=== PATIENT | male | born 1935 | race Caucasian/White ===

== ENCOUNTER → 2020-12-22 15:31 | Outpatient (CLI) | payer MEDICARE, SELFPAY ==
[2020-12-22 17:44] LABS: Absolute Neutrophil Count 4.7 X10^3/uL (2.0-7.7); Basophil# 0.07 X10^3/uL; Eosinophil# 0.18 X10^3/uL; Eosinophils% 2.6 % (0-5); Hematocrit 34.5 % (40-54); Hemoglobin 11.4 g/dL (13.0-16.5); Lymphocyte % 17.2 % (19-41); Mean Corpuscular Hgb 33.5 pg (27.0-32.0); Mean Corpuscular Volume 101.5 fL (80-94); Mean Platelet Vol. 10.6 fl (6.2-12.0); Monocyte# 0.77 X10^3/uL; NRBC Flagged by Analyzer 0 % (0-5); Neutrophil # 4.72 X10^3/uL (2.7-7.7); Neutrophil % 67.8 % (47-70); Platelet Count 239 K/mm3 (150-450); RBC Distribution Width CV 16.2 % (11.6-14.6)
[2020-12-22 17:59] LABS: Vitamin B12 360 pg/mL (211-911)
[2020-12-22 18:00] LABS: Erythrocyte Sedimentation Rate 16 mm/hr (0-20)
[2020-12-22 18:04] LABS: ALB/GLOB Ratio 0.8 RATIO (0.9-2.4); AST(SGOT) 15 U/L (15-37); Alanine Aminotransfer ALT/SGPT 18 U/L (16-61); Albumin, Serum 3.1 g/dL (3.2-5.0); Alkaline Phosphatase 158 U/L (45-117); Anion Gap 8 (5-15); BUN 22 mg/dL (7-18); BUN/Creat Ratio 20.4 RATIO (10-20); Chloride 103 mmol/L (98-107); Creatinine, Serum 1.08 mg/dL (0.70-1.30); EST Glomerular Filtration Rate 69 mL/min (>60); Est Glom Filt Rate - Afr Amer 83 mL/min (>60); Globulin 4.1 g/dL (2.2-4.2); Glucose 102 mg/dL (74-106); Potassium 4.4 mmol/L (3.5-5.1); Prealbumin 18.3 mg/dL (20.0-40.0); Protein, Total 7.2 g/dL (6.4-8.2); Sodium Level 138 mmol/L (136-145); Thyroid Stim Hormone (TSH) 0.08 uIU/mL (0.358-3.74)
== END ==
PROVIDERS: Visit Provider Family Medicine
DX: R41.3 Other amnesia (principal); R63.4 Abnormal weight loss
CPT/HCPCS: 36415; 80053; 82607; 84134; 84443; 85025; 85652

== ENCOUNTER → 2021-07-16 | Outpatient (CLI) | payer MEDICARE, SELFPAY ==
[2021-07-16 13:36] LABS: Absolute Neutrophil Count 4.3 X10^3/uL (2.0-7.7); Basophil# 0.06 X10^3/uL; Basophil% 0.9 % (0-1); Eosinophil# 0.27 X10^3/uL; Eosinophils% 4.1 % (0-5); Hematocrit 33.5 % (40-54); Lymphocyte % 19.7 % (19-41); Mean Corp Hgb Conc 32.8 g/dL (32-36); Mean Corpuscular Hgb 34.9 pg (27.0-32.0); Mean Corpuscular Volume 106.3 fL (80-94); Mean Platelet Vol. 10.5 fl (6.2-12.0); Monocyte# 0.65 X10^3/uL; Monocyte% 9.8 % (0-10); NRBC Flagged by Analyzer 0 % (0-5); Neutrophil % 65.2 % (47-70); Platelet Count 193 K/mm3 (150-450); RBC Distribution Width CV 15.5 % (11.6-14.6); Red Blood Count 3.15 M/mm3 (4.6-6.2); White Blood Count 6.6 K/mm3 (4.4-11.0)
[2021-07-16 14:10] LABS: AST(SGOT) 18 U/L (15-37); Alanine Aminotransfer ALT/SGPT 19 U/L (16-61); Albumin, Serum 3.3 g/dL (3.2-5.0); Alkaline Phosphatase 214 U/L (45-117); Anion Gap 5 (5-15); BUN 23 mg/dL (7-18); BUN/Creat Ratio 19.7 RATIO (10-20); Bilirubin, Direct 0.39 mg/dL (0.00-0.30); Calcium,Total 9.1 mg/dL (8.5-10.1); Chloride 109 mmol/L (98-107); Cholesterol 69 mg/dL (200); Creatinine, Serum 1.17 mg/dL (0.70-1.30); EST Glomerular Filtration Rate 63 mL/min (>60); Est Glom Filt Rate - Afr Amer 76 mL/min (>60); Globulin 3.9 g/dL (2.2-4.2); Glucose 98 mg/dL (74-106); High Density Lipoprotein 15 mg/dL; Magnesium 2.1 mg/dL (1.6-2.6); Potassium 4.4 mmol/L (3.5-5.1); Protein, Total 7.2 g/dL (6.4-8.2); Sodium Level 143 mmol/L (136-145); Thyroid Stim Hormone (TSH) 1.39 uIU/mL (0.358-3.74); Triglycerides 79 mg/dL; Very Low Density Lipoprotein 16 mg/dL (5-40)
== END | disposition home or self-care (01) ==
LOC: LAB 13:07
PROVIDERS: PCP Family Medicine; Referring Provider Internal Medicine Cardiovascular Disease; Visit Provider Internal Medicine Cardiovascular Disease
DX: R06.02 Shortness of breath (principal); I48.92 Unspecified atrial flutter; Z95.5 Presence of coronary angioplasty implant and graft; I25.10 Atherosclerotic heart disease of native coronary artery without angina pectoris; E78.00 Pure hypercholesterolemia, unspecified; I10 Essential (primary) hypertension; E07.9 Disorder of thyroid, unspecified
CPT/HCPCS: 36415; 80048; 80061; 80076; 83735; 84443; 85025

== ENCOUNTER → 2021-08-03 | Outpatient (CLI) | payer MEDICARE, SELFPAY ==
--- NOTE | 2021-08-03 13:10 | STRESSREP ---
Stress Test Report Date: 08-03-2021 Procedure: Pharmacologic stress nuclear imaging study Indications: Atrial flutter; CAD; PCI Consent: Per the patient Procedure: The patient underwent pharmacologic (Regadenoson 0.4mg ) evaluation with a peak heart rate of 60 beats per minute (45%predicted maximal heart rate) and a peak blood pressure of 116/74 mmHg. The baseline ECG demonstrated atrial flutter; poor R wave progression. The peak pharmacologic ECG demonstrated no obvious ECG changes. There were no cardiac dysrhythmias pretest, during pharmacologic infusion, or recovery. There was no complaint of chest discomfort during pharmacologic infusion or recovery. The examination was discontinued secondary to completion of protocol. Impression: 1. Pharmacologic (Regadenoson) evaluation 2. Peak pharmacologic ECG with continued atrial flutter with poor R wave progression with no obvious ECG changes. 3. There were no cardiac dysrhythmias pretest, during pharmacologic infusion, or recovery. 4. Nuclear images pending Myocardial perfusion imaging study: Technique: The patient was injected with 14.1 millicuries of technetium 99m Cardiolite and subsequently rest SPECT Cardiolite nuclear imaging was obtained in the horizontal long, vertical long, and short axis views. The patient underwent pharmacologic (Regadenoson) evaluation with a peak heart rate of 60 beats per minute (45% percent predicted maximal heart rate) and a peak blood pressure of 116/74 mmHg. The patient was injected with 44.3 millicuries of technetium 99m Cardiolite and subsequently stress SPECT Cardiolite nuclear imaging was obtained in the horizontal long, vertical long, and short axis views. A gated Cardiolite study at peak stress was obtained. Interpretation: Rest and stress SPECT Cardiolite nuclear imaging status post realignment, normalization, and attenuation correction demonstrate relative uniform tracer uptake and myocardial perfusion appearing within normal limits. There is end systolic thickening and brightening. The gated Cardiolite study demonstrates myocardial thickening and inward wall motion. The reported LVEF is 78%. Impression: 1. Rest and stress SPECT Cardiolite nuclear imaging demonstrate relative uniform tracer uptake and myocardial perfusion appearing within normal limits. 2. The gated Cardiolite study reports an LVEF of 78%. This note was generated with [employer] software. It may contain incorrect words, spelling, and punctuation that were not noted in checking the note before signing.
== END | disposition home or self-care (01) ==
PROVIDERS: PCP Family Medicine; Referring Provider Internal Medicine Cardiovascular Disease; Visit Provider Internal Medicine Cardiovascular Disease
DX: I48.92 Unspecified atrial flutter (principal); Z95.5 Presence of coronary angioplasty implant and graft; I25.10 Atherosclerotic heart disease of native coronary artery without angina pectoris; E78.00 Pure hypercholesterolemia, unspecified; I10 Essential (primary) hypertension; R06.02 Shortness of breath
CPT/HCPCS: 78452; 93017; A9500; A4216; J2785

== ENCOUNTER → 2021-08-06 | Outpatient (CLI) | payer MEDICARE, SELFPAY ==
--- NOTE | 2021-08-06 14:48 | ECHOD_ITS ---
Reason For Study: ATRIAL FIB-FLUTTER Procedure This was a 2D Doppler, Color Flow transthoracic echocardiogram. The exam was of adequate technical quality. Exam performed in department. Left Ventricle Normal LV size. Left ventricular systolic function is normal. The estimated ejection fraction is 65 %. Unable to assess diastolic dysfunction. No regional wall motion abnormalities noted. Right Ventricle Normal RV size. Normal systolic function. Atria The left atrium is mildly enlarged. The right atrium is mildly enlarged. No doppler evidence for ASD. Mitral Valve There is no mitral annular calcification. Mild focal mitral valve calcification of the anterior leaflet. Mild-Moderate (1-2+) mitral valve insufficiency. Tricuspid Valve Normal tricuspid valve. Mild to moderate (1-2+) tricuspid valve insufficiency. Right ventricular systolic pressure estimated to be 62 mmHg. Aortic Valve Trisinus/trileaflet aortic valve. Mild focal aortic valve thickening. Mild (1+) aortic valve insufficiency. Pulmonic Valve The pulmonic valve is not well visualized. Mild-Moderate (1-2+) pulmonic valve insufficiency. Great Vessels Normal sized aortic root. Pericardium/Pleural No pericardial effusion. MMode/2D Measurements & Calculations LVIDd: 5.1 cm IVSd: 1.0 cm Ao root diam: 3.2 cm LVIDs: 3.3 cm LVPWd: 0.96 cm RVDd: 3.8 cm FS: 35.8 % LAV(MOD-bp): 75.1 ml LVAd ap4: 28.4 cm2 SV(MOD-sp4): 49.7 ml LAV(MOD-bp) Indexed: 33.8 ml/m2 LVLd ap4: 8.2 cm LAV(MOD-sp2): 71.1 ml EDV(MOD-sp4): 79.8 ml LAV(MOD-sp4): 71.5 ml EDV(sp4-el): 83.2 ml LVAs ap4: 15.6 cm2 LVLs ap4: 6.9 cm ESV(MOD-sp4): 30.1 ml ESV(sp4-el): 29.6 ml EF(MOD-sp4): 62.3 % EF(sp4-el): 64.5 % SV(sp4-el): 53.6 ml LA A4 area: 25.5 cm2 LA dimension(2D): 4.6 cm RA A4 area: 23.4 cm2 Time Measurements MV dec time: 0.22 sec Doppler Measurements & Calculations MV E max swapna: 154.1 cm/sec Ao V2 max: 133.3 cm/sec AI max swapna: 448.3 cm/sec Ao max P.1 mmHg AI max P.4 mmHg AI dec slope: 244.1 cm/sec2 AI P1/2t: 538.0 msec LV V1 max: 94.9 cm/sec PA V2 max: 75.5 cm/sec PI dec slope: 257.2 cm/sec2 LV V1 max P.6 mmHg TR max swapna: 383.1 cm/sec TR max P.7 mmHg ECHO/Echo Complete Interpretation Summary Left ventricular systolic function is normal. The estimated ejection fraction is 65 %. The left atrium is mildly enlarged. The right atrium is mildly enlarged. Mild focal mitral valve calcification of the anterior leaflet. Mild-Moderate (1-2+) mitral valve insufficiency. Mild to moderate (1-2+) tricuspid valve insufficiency. Mild focal aortic valve thickening. Mild (1+) aortic valve insufficiency. Mild-Moderate (1-2+) pulmonic valve insufficiency. Right ventricular systolic pressure estimated to be 62 mmHg. Unable to assess diastolic dysfunction. Ordering Physician: Delfino Allison Referring Physician: FAIZA GALVIN Performed By: Mela Byrd RDCS
== END | disposition home or self-care (01) ==
PROVIDERS: PCP Family Medicine; Visit Provider Internal Medicine Cardiovascular Disease
DX: I25.10 Atherosclerotic heart disease of native coronary artery without angina pectoris (principal); I48.92 Unspecified atrial flutter; R06.02 Shortness of breath; E78.00 Pure hypercholesterolemia, unspecified; I10 Essential (primary) hypertension; Z95.5 Presence of coronary angioplasty implant and graft
CPT/HCPCS: 93306

== ENCOUNTER → 2021-10-28 | Outpatient (CLI) | payer MEDICARE, SELFPAY ==
[2021-10-28 18:51] LABS: Vitamin B12 1344 pg/mL (211-911)
== END | disposition home or self-care (01) ==
LOC: MFPLAB 15:16
PROVIDERS: PCP Family Medicine; Referring Provider Family Medicine; Visit Provider Family Medicine
DX: E53.8 Deficiency of other specified B group vitamins (principal)
CPT/HCPCS: 36415; 82607

== ENCOUNTER → 2021-11-16 | Outpatient (CLI) | payer MEDICARE, SELFPAY ==
[2021-11-16 17:48] LABS: Absolute Lymphocyte Count 1.39 X10^3/uL (0.83-4.51); Absolute Neutrophil Count 4.5 X10^3/uL (2.0-7.7); Basophil# 0.07 X10^3/uL; Basophil% 0.9 % (0-1); Eosinophil# 0.29 X10^3/uL; Eosinophils% 3.9 % (0-5); Hematocrit 27.6 % (40-54); Hemoglobin 8.9 g/dL (13.0-16.5); Lymphocyte # 1.39 X10^3/ul (0.83-4.51); Lymphocyte % 18.5 % (19-41); Mean Corp Hgb Conc 32.2 g/dL (32-36); Mean Corpuscular Hgb 33.6 pg (27.0-32.0); Mean Corpuscular Volume 104.2 fL (80-94); Mean Platelet Vol. 10.6 fl (6.2-12.0); Monocyte# 1.21 X10^3/uL; Monocyte% 16.1 % (0-10); NRBC Flagged by Analyzer 0 % (0-5); Neutrophil # 4.54 X10^3/uL (2.7-7.7); Neutrophil % 60.2 % (47-70); POSITIVE MORPHOLOGY YES; Platelet Count 156 K/mm3 (150-450); RBC Distribution Width CV 21.5 % (11.6-14.6); RBC Distribution Width SD 82.2 fl (35.1-43.9); Red Blood Count 2.65 M/mm3 (4.6-6.2); White Blood Count 7.5 K/mm3 (4.4-11.0)
[2021-11-16 17:55] LABS: Differential Indicated SCAN CRITERIA MET
[2021-11-16 18:04] LABS: Anion Gap 8 (5-15); BUN 42 mg/dL (7-18); BUN/Creat Ratio 27.8 RATIO (10-20); Calcium,Total 8.7 mg/dL (8.5-10.1); Chloride 105 mmol/L (98-107); Creatinine, Serum 1.51 mg/dL (0.70-1.30); EST Glomerular Filtration Rate 47 mL/min (>60); Est Glom Filt Rate - Afr Amer 56 mL/min (>60); Ferritin 518 ng/mL (26-388); Glucose 106 mg/dL (74-106); Iron 44 ug/dL (65-175); Potassium 4.7 mmol/L (3.5-5.1); Sodium Level 139 mmol/L (136-145)
[2021-11-16 18:20] LABS: BNP,B-Type NATRIURETIC PEPTIDE 123.4 pg/mL (0-100)
[2021-11-16 18:40] LABS: Differential Comment SCANNED
[2021-11-16 18:41] LABS: Hypochromasia 2+; Macrocytosis 3+; Target Cells 3+
[2021-11-16 18:42] LABS: Schistocytes RARE
[2021-11-16 19:43] LABS: Vitamin B12 1794 pg/mL (211-911)
== END | disposition home or self-care (01) ==
LOC: MFPLAB 15:13
PROVIDERS: PCP Family Medicine; Referring Provider Family Medicine; Visit Provider Family Medicine
DX: I25.10 Atherosclerotic heart disease of native coronary artery without angina pectoris (principal); D64.9 Anemia, unspecified
CPT/HCPCS: 36415; 80048; 82607; 82728; 83540; 83880; 85025; 85027

== ENCOUNTER 2021-12-09 18:34 | Inpatient (IN) | payer MEDICARE, SELFPAY ==
[2021-12-09 18:35] VITALS: BP 94/50; PULSE 76; RESP 16; TEMP 36.7; O2SAT 98; BMI 27.1
--- NOTE | 2021-12-09 19:55 | EKG12_ITS ---
Test Reason : GENERAL ILLNES Blood Pressure : / mmHG Vent. Rate : 077 BPM Atrial Rate : 231 BPM P-R Int : 000 ms QRS Dur : 080 ms QT Int : 500 ms P-R-T Axes : 000 -28 035 degrees QTc Int : 565 ms Atrial flutter with variable A-V block Low voltage QRS Nonspecific T wave abnormality Abnormal ECG Confirmed by JAYCE RUBIN, ANDREA ([id number]), makeup editor KISHAN KELLY ([id number]) on 12/14/2021 9:33:54 AM Referred By: Confirmed By:ANDREA EDUARDO MD
--- NOTE | 2021-12-09 19:56 | EDS_ITS ---
HPI History of Present Illness Chief Complaint: Abn Labs Detail of Chief Complaint: Weakness Informant: patient and spouse/S.O. Onset/Context/Timing Onset: Weeks Narrative Narrative: Patient presents with generalized weakness over the last 2 or 3 weeks. states he has been mildly in bed for the last for 5 days. He states he just has no energy to go do anything. He has had decreased appetite as well and therefore decreased p.o. intake. He denies fever or chills. He denies pain anywhere. Triage note states that he is here for low hemoglobin. His labs were last checked in October. At that time his hemoglobin was 8.9. He has not had repeat labs since then. [facility] Medical History Arthritis Atherosclerotic heart disease of [place] coronary artery without angina pectoris Atrial flutter Encounter for screening for COVID-19 Essential hypertension Heart disease Hypertension Presence of stent in coronary artery (~01/13/01) Pure hypercholesterolemia Rheumatic fever Shortness of breath URI (upper respiratory infection) Home Medications aspirin 81 mg tablet,delayed release (Adult Aspirin Regimen) 81 mg PO DAILY 01/23/21 [History Last Taken Unknown] atorvastatin 40 mg tablet 40 mg PO DAILY 01/23/21 [History Last Taken Unknown] clopidogrel 75 mg tablet 75 mg PO DAILY 01/23/21 [History Last Taken Unknown] levothyroxine 125 mcg tablet (Euthyrox) 125 mcg PO DAILY 01/23/21 [History Last Taken Unknown] lisinopril 40 mg tablet 40 mg PO DAILY 01/23/21 [History Last Taken Unknown] ascorbic acid (vitamin C) 500 mg tablet 500 mg PO DAILY 07/07/21 [History Last Taken Unknown] cholecalciferol (vitamin D3) 25 mcg (1,000 unit) tablet 25 mcg PO DAILY 07/07/21 [History Last Taken Unknown] multivitamin 1 tab PO DAILY 07/07/21 [History Last Taken Unknown] furosemide 40 mg tablet 20 mg PO DAILY 07/09/21 [History Last Taken Unknown] metoprolol tartrate 25 mg tablet 12.5 mg PO BID 07/09/21 [History Last Taken Unknown] omega 4-qny-blk-fish oil 60 mg-90 mg-500 mg capsule (Fish Oil) 1 cap PO DAILY 07/09/21 [History Last Taken Unknown] allopurinol 300 mg tablet 150 mg PO DAILY 08/20/21 [History Last Taken Unknown] lactobacillus combination no.4 3 billion cell capsule (Probiotic) 3,000 mmu ce lls PO DAILY 12/09/21 [History Last Taken Unknown] loratadine 10 mg tablet (Claritin) 10 mg PO DAILY 12/09/21 [History Last Taken Unknown] Allergy/AdvReac Type Severity Reaction Status Date / Time adhesive tape Allergy Mild RASH Verified 08/20/21 14:32 iodine Allergy Mild UNKNOWN Verified 08/20/21 14:32 Family History Father Myocardial infarction, Onset Age: 46 Surgical History History of carpal tunnel release History of cholecystectomy Presence of coronary angioplasty implant and graft (~01/13/01) Social History Smoking Status: Never smoker alcohol intake: never substance use type: does not use caffeine: Yes Type: coffee Number of servings: 1 ROS ROS ED Constitutional Constitutional ED: Denies chills or fever(s) Eyes Eyes: Denies change in vision or discharge from eye(s) ENT ENT ED: Denies discharge from eye(s), rhinorrhea or sore throat Cardiovascular Cardiovascular: Denies chest pain or palpitations Respiratory/Chest Respiratory/Chest: Denies cough or dyspnea Gastrointestinal Gastrointestinal: Denies abdominal pain, diarrhea, nausea or vomiting Genitourinary Genitourinary ED: Denies dysuria Musculoskeletal Musculoskeletal: Denies back pain or extremity pain Integumentary Denies Abrasions or rash Neurologic Neurologic: Reports weakness; Denies headache(s) Psychiatric Psychiatric: Denies anxiety or depression Allergic/Immunologic Allergic/Immunologic ED: Denies lip swelling or urticaria EXAM Physical Exam Const Vital Signs: 12/09/21 18:35 12/09/21 19:37 12/09/21 21:22 Temperature 98.0 F Temperature Source Temporal Pulse Rate 76 68 Respiratory Rate 16 33 H Respiratory Effort Normal Respiratory Pattern Normal Blood Pressure 94/50 L Blood Pressure Mean 64 Pulse Ox 98 96 Oxygen Delivery Method Room Air Room Air Positive well nourished and well developed General Appearance ED: well developed HEENT Reports normocephalic and head/scalp atraumatic Eyes PERRL and EOMs intact bilaterally Neck supple Chest Wall inspection of chest normal and palpation of chest normal Resp normal respiratory effort and clear to auscultation bilaterally Cardio regular rate and regular rhythm GI normal to inspection, nondistended, normoactive bowel sounds Palpation: soft Extremity normal to inspection Neuro oriented x3 and no sensory deficits noted Neuro Narrative: No focal neurologic deficits. Sensorium / Orientation: alert Psych mental status grossly normal Skin no rashes or lesions noted MDM MDM MDM Narrative Medical decision making narrative: Patient placed on cardiac catheterization technician. EKG, chest x-ray, lab work obtained. Urinalysis ordered. Lab Data Attestation: I reviewed the patient's lab results. Labs: Laboratory Results - last 24 hr 12/09/21 12/09/21 12/09/21 20:06 20:06 20:06 WBC 7.1 RBC 2.40 L Hgb 8.0 L Hct 25.4 L MCV 105.8 H MCH 33.3 H MCHC 31.5 L RDW Std Deviation 70.5 H RDW Coeff of Jesu 18.1 H Plt Count 121 L MPV 9.8 Immature Gran % (Auto) 1.400 H Neut % (Auto) 57.1 Lymph % (Auto) 16.2 L [place] % (Auto) 23.0 H Eos % (Auto) 1.6 Baso % (Auto) 0.7 Absolute Neuts (auto) 4.0 Absolute Lymphs (auto) 1.15 Nucleated RBC % 0 Differential Comment SCANNED Anisocytosis 1+ PT 18.1 H INR 1.5 APTT 35.1 Sodium 143 Potassium 5.5 H Chloride 114 H Carbon Dioxide 24.0 Anion Gap 5 BUN 72 H Creatinine 2.06 H Estim Creat Clear Calc 27.73 Est GFR (MDRD) Af Amer 39 L Est GFR (MDRD) Non-Af 33 L BUN/Creatinine Ratio 35.0 H Glucose 133 H Calcium 9.1 Urine Color Urine Clarity Urine pH Ur Specific [place] Urine Protein Urine Glucose (UA) Urine Ketones Urine Occult Blood Urine Nitrite Urine Bilirubin Urine Urobilinogen Ur Leukocyte Esterase 12/09/21 21:41 WBC RBC Hgb Hct MCV MCH MCHC RDW Std Deviation RDW Coeff of Jesu Plt Count MPV Immature Gran % (Auto) Neut % (Auto) Lymph % (Auto) [place] % (Auto) Eos % (Auto) Baso % (Auto) Absolute Neuts (auto) Absolute Lymphs (auto) Nucleated RBC % Differential Comment Anisocytosis PT INR APTT Sodium Potassium Chloride Carbon Dioxide Anion Gap BUN Creatinine Estim Creat Clear Calc Est GFR (MDRD) Af Amer Est GFR (MDRD) Non-Af BUN/Creatinine Ratio Glucose Calcium Urine Color Yellow Urine Clarity Clear Urine pH 5.0 Ur Specific [place] 1.015 Urine Protein 15 H Urine Glucose (UA) Normal Urine Ketones Negative Urine Occult Blood Negative Urine Nitrite Negative Urine Bilirubin Negative Urine Urobilinogen 4 H Ur Leukocyte Esterase 25 H Radiography Diagnostic Testing: Clinical Impression(s) from Imaging Studies Chest X-Ray 12/09/21 20:10 IMPRESSION: Questionable trace right pleural effusion. Electronically Signed: Edenilson Issa MD at 21:54 EDT , Treatment and Re-Evaluation Narrative: CBC today reveals a normal white count. Hemoglobin is 8.0. This is compared to a hemoglobin of 8.9 on November 16 of this year and a hemoglobin of 11.0 on July 16. Chemistry studies reveal dehydration with a BUN of 72 and a creatinine of 2.06. Potassium is minimally elevated at 5.5. Glucose is 133. Microscopic urinalysis reveals no overt sign of infection. Patient has been given IV fluids. Rectal examination is performed with light brown stool. This does, however, return guaiac positive. Patient be discussed with GI as well as hospitalist for evaluation and treatment. Discharge Plan Triage Chief Complaint: Abn Labs ED Provider: Audrey Napier Dx/Rx/DC Orders Clinical Impression: GI bleed, Anemia, Acute kidney insufficiency Prescriptions: No Action lisinopril 40 mg tablet 40 mg PO DAILY atorvastatin 40 mg tablet 40 mg PO DAILY aspirin [Adult Aspirin Regimen] 81 mg tablet,delayed release (DR/EC) 81 mg PO DAILY clopidogrel 75 mg tablet 75 mg PO DAILY levothyroxine [Euthyrox] 125 mcg tablet 125 mcg PO DAILY omega 0-nzg-shv-fish oil [Fish Oil] 60-90-500 mg capsule 1 cap PO DAILY metoprolol tartrate 25 mg tablet 12.5 mg PO BID ascorbic acid (vitamin C) 500 mg tablet 500 mg PO DAILY cholecalciferol (vitamin D3) 25 mcg (1,000 unit) tablet 25 mcg PO DAILY multivitamin Tablet 1 tab PO DAILY furosemide 40 mg tablet 20 mg PO DAILY allopurinol 300 mg tablet 150 mg PO DAILY loratadine [Claritin] 10 mg Tablet 10 mg PO DAILY Probiotic 3 billion cell Capsule 3,000 mmu cells PO DAILY Rx Instructions: administer with a meal Primary Care Provider: Agus Almaguer Referrals: Agus Almaguer MD [Primary Care Provider] - Disposition Disposition: Acute Care Hospital [facility]
[2021-12-09] MEDS: 0.9% Normal Saline 1,000 ML 1000 ML IV (20:08)
--- NOTE | 2021-12-09 20:10 | RAD_ITS ---
INDICATION: sob EXAMINATION/TECHNIQUE: X-RAY - XR Chest 1 View COMPARISON: None. FINDINGS: The lungs are clear. The cardiomediastinal silhouette is unremarkable. Questionable trace right pleural effusion. No pneumothorax. Degenerative changes of the thoracic spine. RAD/Chest 1 View (Portable) IMPRESSION: Questionable trace right pleural effusion. Electronically Signed: Edenilson Issa MD at 21:54 EDT ,
[2021-12-09 20:15] LABS: Absolute Lymphocyte Count 1.15 X10^3/uL (0.83-4.51); Basophil# 0.05 X10^3/uL; Basophil% 0.7 % (0-1); Eosinophil# 0.11 X10^3/uL; Eosinophils% 1.6 % (0-5); Hematocrit 25.4 % (40-54); Lymphocyte # 1.15 X10^3/ul (0.83-4.51); Lymphocyte % 16.2 % (19-41); Mean Corp Hgb Conc 31.5 g/dL (32-36); Mean Corpuscular Hgb 33.3 pg (27.0-32.0); Mean Corpuscular Volume 105.8 fL (80-94); Mean Platelet Vol. 9.8 fl (6.2-12.0); Monocyte# 1.63 X10^3/uL; NRBC Flagged by Analyzer 0 % (0-5); Neutrophil # 4.04 X10^3/uL (2.7-7.7); Neutrophil % 57.1 % (47-70); POSITIVE DIFFERENTIAL YES; POSITIVE MORPHOLOGY YES; Platelet Count 121 K/mm3 (150-450); RBC Distribution Width CV 18.1 % (11.6-14.6); RBC Distribution Width SD 70.5 fl (35.1-43.9); White Blood Count 7.1 K/mm3 (4.4-11.0)
[2021-12-09 20:21] LABS: Differential Indicated SCAN CRITERIA MET
[2021-12-09 20:24] LABS: International Normalized Ratio 1.5; Prothrombin Time (Protime)PT. 18.1 SECONDS (11.7-14.9)
[2021-12-09 20:25] LABS: Partial Thromboplast Time 35.1 Seconds (24.1-36.2)
[2021-12-09 20:31] LABS: Anion Gap 5 (5-15); BUN 72 mg/dL (7-18); Calcium,Total 9.1 mg/dL (8.5-10.1); Chloride 114 mmol/L (98-107); Creatinine, Serum 2.06 mg/dL (0.70-1.30); EST Glomerular Filtration Rate 33 mL/min (>60); Est Glom Filt Rate - Afr Amer 39 mL/min (>60); Estimated Creatinine Clearance 27.73 ml/min; Glucose 133 mg/dL (74-106); Potassium 5.5 mmol/L (3.5-5.1); Sodium Level 143 mmol/L (136-145)
[2021-12-09 20:42] LABS: Anisocytosis 1+; Differential Comment SCANNED
[2021-12-09 21:22] VITALS: PULSE 68; RESP 33; O2SAT 96
[2021-12-09] MEDS: 0.9% Normal Saline 1,000 ML 150 ML IV (21:42)
[2021-12-09 21:46] LABS: Mucous, Urine 0 SEEN /hpf (<or=2+); Red Blood Cells-Urine 0 SEEN /hpf (0-5)
[2021-12-09 21:51] LABS: Color, Urine Yellow (Yellow); Glucose, Dipstick Normal (Normal); Ketone-Dipstick Negative (Negative); Leukocyte Esterase-Dipstick 25 /ul (Negative); Nitrite-Dipstick Negative (Negative); Occult Blood-Urine Negative /ul (Negative); Protein-Dipstick 15 mg/dl (Negative); Specific Gravity, Urine 1.015 (1.002-1.030); Urine Bilirubin Dipstick Negative (Negative); Urine Clarity Clear (Clear); Urine Urobilinogen 4 mg/dl (Normal)
[2021-12-09 21:59] VITALS: BP 125/61; PULSE 72; RESP 22; O2SAT 99
[2021-12-09 22:02] LABS: Bacteria 1+ /hpf (None Seen); Hyaline Cast 10-25 SEEN /lpf (0-5); Squamous Epithelial Cells - UA 0-5 SEEN /hpf (0-5); White Blood Cells 0-5 SEEN /hpf (0-5)
[2021-12-09 22:03] LABS: Coarse Granular Cast 5-10 SEEN /lpf (0-5 /lpf); Fine Granular Cast- Urine 0-5 SEEN /lpf (0-5)
--- NOTE | 2021-12-09 22:10 | ED.RN ---
of pt states they are taking care of each other. Pt has a small skin tear/ pressure wound on bottom. states pt has been wetting bed at night which is new onset. requests home health/ social work consultation to discuss options for them.
--- NOTE | 2021-12-09 22:20 | PCM.HP.STD ---
HPI - General General Date of Admission: 12/09/21 Date of Service: 12/09/21 Chief Complaint: Fatigue HPI Narrative ASIA WILSON, is a 86 M with a significant history of hypertension; CAD status post stents and atrial fibrillation who presents emergency department with 2 to 3-week history of progressively worsening fatigue. Reportedly 34 days before presentation patient was so weak that he could not get out of bed. Associated with symptoms is decreased output. Reportedly on November 16, 2021 outpatient labs showed hemoglobin of 8.9. Patient has tried seeing hematology without any real success. He reports normal brown color stool. Emergency Department doctor reported that rectal exams showed brown stool which was occult positive. PENDING SALE TO [facility] Medical History Arthritis Atherosclerotic heart disease of [place] coronary artery without angina pectoris Atrial flutter Encounter for screening for COVID-19 Essential hypertension Heart disease Hypertension Presence of stent in coronary artery (~01/13/01) Pure hypercholesterolemia Rheumatic fever Shortness of breath URI (upper respiratory infection) Home Medications aspirin 81 mg tablet,delayed release (Adult Aspirin Regimen) 81 mg PO DAILY 01/23/21 [History Last Taken Unknown] atorvastatin 40 mg tablet 40 mg PO DAILY 01/23/21 [History Last Taken Unknown] clopidogrel 75 mg tablet 75 mg PO DAILY 01/23/21 [History Last Taken Unknown] levothyroxine 125 mcg tablet (Euthyrox) 125 mcg PO DAILY 01/23/21 [History Last Taken Unknown] lisinopril 40 mg tablet 40 mg PO DAILY 01/23/21 [History Last Taken Unknown] ascorbic acid (vitamin C) 500 mg tablet 500 mg PO DAILY 07/07/21 [History Last Taken Unknown] cholecalciferol (vitamin D3) 25 mcg (1,000 unit) tablet 25 mcg PO DAILY 07/07/21 [History Last Taken Unknown] multivitamin 1 tab PO DAILY 07/07/21 [History Last Taken Unknown] furosemide 40 mg tablet 20 mg PO DAILY 07/09/21 [History Last Taken Unknown] metoprolol tartrate 25 mg tablet 12.5 mg PO BID 07/09/21 [History Last Taken Unknown] omega 3-bkf-dae-fish oil 60 mg-90 mg-500 mg capsule (Fish Oil) 1 cap PO DAILY 07/09/21 [History Last Taken Unknown] allopurinol 300 mg tablet 150 mg PO DAILY 08/20/21 [History Last Taken Unknown] lactobacillus combination no.4 3 billion cell capsule (Probiotic) 3,000 mmu cells PO DAILY 12/09/21 [History Last Taken Unknown] loratadine 10 mg tablet (Claritin) 10 mg PO DAILY 12/09/21 [History Last Taken Unknown] Allergy/AdvReac Type Severity Reaction Status Date / Time adhesive tape Allergy Mild RASH Verified 08/20/21 14:32 iodine Allergy Mild UNKNOWN Verified 08/20/21 14:32 Family History Father Myocardial infarction, Onset Age: 46 Surgical History History of carpal tunnel release History of cholecystectomy Presence of coronary angioplasty implant and graft (~01/13/01) Social History Smoking Status: Never smoker alcohol intake: never substance use type: does not use caffeine: Yes Type: coffee Number of servings: 1 Vital Signs Vital Signs Vital Signs: 12/09/21 18:35 12/09/21 19:37 12/09/21 21:22 Temperature 98.0 F Temperature Source Temporal Pulse Rate 76 68 Respiratory Rate 16 33 H Respiratory Effort Normal Respiratory Pattern Normal Blood Pressure 94/50 L Blood Pressure Mean 64 Pulse Ox 98 96 Oxygen Delivery Method Room Air Room Air 12/09/21 21:59 Temperature Temperature Source Pulse Rate 72 Respiratory Rate 22 H Respiratory Effort Respiratory Pattern Blood Pressure 125/61 H Blood Pressure Mean 82 Pulse Ox 99 Oxygen Delivery Method Room Air Weight Weight: 90.718 kg Body Mass Index (BMI) 27.1 Physical Exam Narrative Physical exam: General: Well-nourished, well-developed. Head: Normocephalic, atraumatic, no tenderness Eyes: Vision is grossly intact. EOMI ENT: Edentulous; no trauma, moist mucous membranes, no rhinorrhea Neck: Nontender, full range of motion, no spinal tenderness, deformities, step-off CVS: Regular rate and rhythm. S1-S2 present. No murmur, gallop or rub. Respiratory : clear to auscultation bilaterally, chest wall nontender, no wheezing Abdomen: Soft, nontender, nondistended, normal bowel sounds, no masses : Deferred Back: Nontender, no CVA tenderness, no midline spinal tenderness, deformities, step-offs Extremities: Nontender full range of motion, no trauma Skin: Pale, no trauma, abrasions Neuro: Alert, oriented, cranial nerves II through XII grossly intact. Psychiatry: Normal mood. Normal affect. Not depressed. Not anxious. Results Lab / Micro Data Result Diagrams: 12/09/21 20:06 12/09/21 20:06 Labs: Laboratory Results - last 24 hr 12/09/21 20:06: WBC 7.1, RBC 2.40 L, Hgb 8.0 L, Hct 25.4 L, MCV 105.8 H, MCH 33.3 H, MCHC 31.5 L, RDW Std Deviation 70.5 H, RDW Coeff of Jesu 18.1 H, Plt Count 121 L, MPV 9.8, Immature Gran % (Auto) 1.400 H, Neut % (Auto) 57.1, Lymph % (Auto) 16.2 L, [place] % (Auto) 23.0 H, Eos % (Auto) 1.6, Baso % (Auto) 0.7, Absolute Neuts (auto) 4.0, Absolute Lymphs (auto) 1.15, Nucleated RBC % 0, Differential Comment SCANNED, Anisocytosis 1+ 12/09/21 20:06: PT 18.1 H, INR 1.5, APTT 35.1 12/09/21 20:06: Sodium 143, Potassium 5.5 H, Chloride 114 H, Carbon Dioxide 24.0, Anion Gap 5, BUN 72 H, Creatinine 2.06 H, Estim Creat Clear Calc 27.73, Est GFR (MDRD) Af Amer 39 L, Est GFR (MDRD) Non-Af 33 L, BUN/Creatinine Ratio 35.0 H, Glucose 133 H, Calcium 9.1 12/09/21 21:41: Urine Color Yellow, Urine Clarity Clear, Urine pH 5.0, Ur Specific [place] 1.015, Urine Protein 15 H, Urine Glucose (UA) Normal, Urine Ketones Negative, Urine Occult Blood Negative, Urine Nitrite Negative, Urine Bilirubin Negative, Urine Urobilinogen 4 H, Ur Leukocyte Esterase 25 H, Urine RBC 0 SEEN, Urine WBC 0-5 SEEN, Ur Squamous Epith Cells 0-5 SEEN, Urine Bacteria 1+, Hyaline Casts 10-25 SEEN, Fine Granular Casts 0-5 SEEN, Coarse Granular Casts 5-10 SEEN, Urine Mucus 0 SEEN Micro: Microbiology 12/09/21 21:00 Stool Stool Occult Blood (DMITRY) - Final Occult Blood Positive Radiology Impression Chest X-Ray 12/09/21 20:10 IMPRESSION: Questionable trace right pleural effusion. Electronically Signed: Edenilson Issa MD at 21:54 EDT , Assessment & Plan Assessment/Plan (1) GI bleed: (2) Upper GI bleed: (3) CHEYANNE (acute kidney injury): PLAN: Plan Acute GI bleed Likely upper GI bleed. Hemoglobin on presentation was 8.0. His hemoglobin on 11/16/2021 was 8.9. His baseline hemoglobin is around 11. Elevated BUN. Platelet on presentation was 121. Review of old records show that his platelet on 11/16/2021 was 156 and on 07/16/2021 was 193. PT on presentation was elevated at 18.1. INR was 1.5. Admit to monitored bed on [facility] on telemetry IV fluids H&H every 6 hours Hold antiplatelets No anticoagulants for DVT prophylaxis SCD Protonix GI consult. Patient and was at the bedside report that in the past patient did not have a colonoscopy because of anesthesia risk. Cardiology consult. CHEYANNE on CKD stage II His creatinine on presentation was 2.06. His creatinine 11/16/2021 was 1.51. And creatinine 07/16/2021 was 1.17. Normal saline hydration ordered. Hold home Lasix. Hold lisinopril. Avoid other nephrotoxins. De-escalate dose of allopurinol. Trend BMP. CAD Stable Cards that patient had showed stents placed in his circumflex on 01/13/2001; and 2 stents placed in his LAD on 08/17/2000. Aspirin and Plavix held for GI bleed. Hold Lasix; metoprolol and lisinopril secondary to CHEYANNE and soft blood pressures. Pulmonary hypertension Echocardiogram on 08/06/2021 showed RVSP of 62 mmHg. Left ventricular systolic pressure was 65 mmHg. Noted to have mild to moderate valvular dysfunction. Patient had nuclear stress test on 08/03/2021 Will consult cardiology for preoperative evaluation in view of patient needing scope in the setting of GI bleed. Atrial fibrillation Stable Metoprolol held secondary to soft blood pressures. Not on home anticoagulation. On home aspirin and Plavix which has been held secondary to acute blood loss anemia. Placed on MedSurg with telemetry. Abnormal chest x-ray Chest x-ray was visualized and independently interpreted. I agree with radiologist interpretation of a questionable trace right pleural effusion. Patient with no shortness of breath or hypoxia. Monitor. Debility Likely secondary to anemia PT and OT to evaluate and treat. Case management consult. DVT prophylaxis: SCDs ordered Charges/Coding Visit Charges Inpatient E&M: 42187 Init Hosp L3
[2021-12-09 22:50] VITALS: BP 114/67; PULSE 79; RESP 21; TEMP 36.8; O2SAT 98
--- NOTE | 2021-12-09 23:00 | PCM.CONS.GEN ---
Assessment & Plan Assessment/Plan (1) Anemia: PLAN: The differential diagnosis for acute anemia in the setting of alcohol positive stools is an acute on chronic GI bleed. The differential diagnosis does include upper GI bleed secondary to peptic ulcer disease from Plavix and aspirin therapy. Also different diagnosis is neoplasia, angiodysplasia, telangiectasia and hemolysis. Recommend an upper endoscopy and if this study is negative then he will need a colonoscopy and possible capsule endoscopy. HPI Consult Data Date of Consult: 12/09/21 HPI Narrative Reason for Consultation: GI bleed HPI Narrative: ASIA WILSON, is a 86 M who presents from home with generalized weakness over the last 2 or 3 weeks.? He has a past medical history of CAD, atrial flutter flutter not on anticoagulation but on antiplatelet therapy secondary to history of percutaneous stent placement. His last echo showed an ejection fraction of 65%. His states he has been mildly in bed for the last for 5 days.? He states he just has no energy to go do anything.? He has had decreased appetite as well and therefore decreased p.o. intake.? He denies fever or chills.? He denies pain anywhere.? Triage note states that he is here for low hemoglobin.? His labs were last checked in October.? At that time his hemoglobin was 8.9.? He has not had repeat labs since then. His baseline hemoglobin seems to be around 12.5. He has never had a colonoscopy in the past. He denies any chest pain or shortness of breath. He denies any weakness or fatigue. He denies any nausea. All other 16 review of systems are negative except those pertinent positive mentioned HPI. [facility] Medical History (Updated 12/10/21 @ 10:[address] Delfino Allison MD) Arthritis Atherosclerotic heart disease of [place] coronary artery without angina pectoris Atrial flutter Encounter for screening for COVID-19 Essential hypertension Heart disease Hypertension Preoperative cardiovascular examination Presence of stent in coronary artery (~01/13/01) Pure hypercholesterolemia Rheumatic fever Shortness of breath URI (upper respiratory infection) Home Medications aspirin 81 mg tablet,delayed release (Adult Aspirin Regimen) 81 mg PO DAILY 01/23/21 [History Last Taken Unknown] atorvastatin 40 mg tablet 40 mg PO DAILY 01/23/21 [History Last Taken Unknown] clopidogrel 75 mg tablet 75 mg PO DAILY 01/23/21 [History Last Taken Unknown] levothyroxine 125 mcg tablet (Euthyrox) 125 mcg PO DAILY 01/23/21 [History Last Taken Unknown] lisinopril 40 mg tablet 40 mg PO DAILY 01/23/21 [History Last Taken Unknown] ascorbic acid (vitamin C) 500 mg tablet 500 mg PO DAILY 07/07/21 [History Last Taken Unknown] cholecalciferol (vitamin D3) 25 mcg (1,000 unit) tablet 25 mcg PO DAILY 07/07/21 [History Last Taken Unknown] multivitamin 1 tab PO DAILY 07/07/21 [History Last Taken Unknown] furosemide 40 mg tablet 20 mg PO DAILY 07/09/21 [History Last Taken Unknown] metoprolol tartrate 25 mg tablet 12.5 mg PO BID 07/09/21 [History Last Taken Unknown] omega 6-cdu-yod-fish oil 60 mg-90 mg-500 mg capsule (Fish Oil) 1 cap PO DAILY 07/09/21 [History Last Taken Unknown] allopurinol 300 mg tablet 150 mg PO DAILY 08/20/21 [History Last Taken Unknown] lactobacillus combination no.4 3 billion cell capsule (Probiotic) 3,000 mmu cells PO DAILY 12/09/21 [History Last Taken Unknown] loratadine 10 mg tablet (Claritin) 10 mg PO DAILY 12/09/21 [History Last Taken Unknown] Allergy/AdvReac Type Severity Reaction Status Date / Time adhesive tape Allergy Mild RASH Verified 08/20/21 14:32 iodine Allergy Mild UNKNOWN Verified 08/20/21 14:32 Family History Father Myocardial infarction, Onset Age: 46 Surgical History History of carpal tunnel release History of cholecystectomy Presence of coronary angioplasty implant and graft (~01/13/01) Social History Smoking Status: Never smoker alcohol intake: never substance use type: does not use caffeine: Yes Type: coffee Number of servings: 1 ROS Constitutional Constitutional: Reports fatigue Eyes Eyes: Reports as per HPI ENT HEENT: Reports as per HPI Cardiovascular Cardiovascular: Reports fatigue Respiratory/Chest Respiratory/Chest: Reports as per HPI Gastrointestinal Gastrointestinal: Reports as per HPI Genitourinary Genitourinary: Reports as per HPI Musculoskeletal Musculoskeletal: Reports as per HPI Integumentary Integumentary: Reports as per HPI Neurologic Neurologic: Reports as per HPI Physical Exam Const alert, oriented x3 and no apparent distress General Appearance: other Frail-appearing Orientation / Consciousness: awake Eyes PERRL, EOMs intact bilaterally, conjunctivae normal and no scleral icterus Neck full ROM, supple and no JVD Carotids: normal carotid upstroke Resp normal respiratory effort and clear to auscultation bilaterally Cardio Rhythm: abnormal rhythm regularly irregular Heart Sounds: S1 normal and S2 normal GI normal to inspection, nondistended, normoactive bowel sounds Extremity General Extremity: edema bilateral lower extremity (Chronic appearing) Details: moderate Skin no rashes or lesions noted Psych mental status grossly normal Lab / Micro Data Result Diagrams: 12/10/21 05:55 12/10/21 05:55 Labs: Laboratory Results - last 24 hr 12/09/21 20:06: WBC 7.1, RBC 2.40 L, Hgb 8.0 L, Hct 25.4 L, MCV 105.8 H, MCH 33.3 H, MCHC 31.5 L, RDW Std Deviation 70.5 H, RDW Coeff of Jesu 18.1 H, Plt Count 121 L, MPV 9.8, Immature Gran % (Auto) 1.400 H, Neut % (Auto) 57.1, Lymph % (Auto) 16.2 L, [place] % (Auto) 23.0 H, Eos % (Auto) 1.6, Baso % (Auto) 0.7, Absolute Neuts (auto) 4.0, Absolute Lymphs (auto) 1.15, Nucleated RBC % 0, Differential Comment SCANNED, Anisocytosis 1+ 12/09/21 20:06: PT 18.1 H, INR 1.5, APTT 35.1 12/09/21 20:06: Sodium 143, Potassium 5.5 H, Chloride 114 H, Carbon Dioxide 24.0, Anion Gap 5, BUN 72 H, Creatinine 2.06 H, Estim Creat Clear Calc 27.73, Est GFR (MDRD) Af Amer 39 L, Est GFR (MDRD) Non-Af 33 L, BUN/Creatinine Ratio 35.0 H, Glucose 133 H, Calcium 9.1 12/09/21 21:41: Urine Color Yellow, Urine Clarity Clear, Urine pH 5.0, Ur Specific [place] 1.015, Urine Protein 15 H, Urine Glucose (UA) Normal, Urine Ketones Negative, Urine Occult Blood Negative, Urine Nitrite Negative, Urine Bilirubin Negative, Urine Urobilinogen 4 H, Ur Leukocyte Esterase 25 H, Urine RBC 0 SEEN, Urine WBC 0-5 SEEN, Ur Squamous Epith Cells 0-5 SEEN, Urine Bacteria 1+, Hyaline Casts 10-25 SEEN, Fine Granular Casts 0-5 SEEN, Coarse Granular Casts 5-10 SEEN, Urine Mucus 0 SEEN 12/10/21 05:55: Sodium 144, Potassium 4.8, Chloride 116 H, Carbon Dioxide 21.0, Anion Gap 7, BUN 71 H, Creatinine 1.80 H, Estim Creat Clear Calc 31.73, Est GFR (MDRD) Af Amer 46 L, Est GFR (MDRD) Non-Af 38 L, BUN/Creatinine Ratio 39.4 H, Glucose 112 H, Calcium 8.3 L 12/10/21 05:55: WBC 6.3, RBC 2.16 L, Hgb 7.1 L, Hct 22.7 L, MCV 105.1 H, MCH 32.9 H, MCHC 31.3 L, RDW Std Deviation 69.1 H, RDW Coeff of Jesu 18.1 H, Plt Count 122 L, MPV 11.9, Immature Gran % (Auto) 1.300 H, Neut % (Auto) 58.7, Lymph % (Auto) 16.1 L, [place] % (Auto) 21.7 H, Eos % (Auto) 1.6, Baso % (Auto) 0.6, Absolute Neuts (auto) 3.7, Absolute Lymphs (auto) 1.01, Nucleated RBC % 0, Atypical Lymphocytes 1+, Anisocytosis 2+, Macrocytosis 2+ 12/10/21 05:55: PT 18.7 H, INR 1.6, APTT 36.2 12/10/21 05:55: TSH 0.79 12/10/21 08:30: Blood Type O POSITIVE, Antibody Screen NEGATIVE, Crossmatch See Detail Micro: Microbiology 12/09/21 21:00 Stool Stool Occult Blood (DMITRY) - Final Occult Blood Positive Radiology Impression Chest X-Ray 12/09/21 20:10 IMPRESSION: Questionable trace right pleural effusion. Electronically Signed: Edenilson Issa MD at 21:54 EDT , Charges/Coding Visit Charges Inpatient E&M: 73134 Init Hosp L2
[2021-12-09 23:26] VITALS: BMI 28.0
[2021-12-09 23:28] VITALS: BP 123/73; PULSE 79; RESP 18; TEMP 36.9; O2SAT 97
[2021-12-09 23:59] VITALS: PULSE 75
[2021-12-10] VITALS (25 sets, daily range): BP systolic 84–126; BP diastolic 42–73; PULSE 50–82; RESP 14–20; TEMP 36.3–37.6; O2SAT 94–100; BMI 28.0
[2021-12-10] MEDS: Nystatin Powder 15gm Bottle 1 APPLIC TOPICAL ×3 (01:11→22:07)
[2021-12-10] MEDS: Menthol/Lanolin/Calamine/Znox 113 GM Tube 1 APPLIC TOPICAL ×3 (01:12→22:07)
[2021-12-10] MEDS: 0.9% Normal Saline 1,000 ML 75 ML IV ×2 (01:14→22:17)
[2021-12-10] MEDS: Levothyroxine 125 MCG Tablet PO (05:12)
[2021-12-10 06:08] LABS: Absolute Lymphocyte Count 1.01 X10^3/uL (0.83-4.51); Absolute Neutrophil Count 3.7 X10^3/uL (2.0-7.7); Basophil# 0.04 X10^3/uL; Basophil% 0.6 % (0-1); Differential Indicated SCAN CRITERIA MET; Eosinophils% 1.6 % (0-5); Hematocrit 22.7 % (40-54); Hemoglobin 7.1 g/dL (13.0-16.5); Lymphocyte # 1.01 X10^3/ul (0.83-4.51); Lymphocyte % 16.1 % (19-41); Mean Corp Hgb Conc 31.3 g/dL (32-36); Mean Corpuscular Hgb 32.9 pg (27.0-32.0); Mean Corpuscular Volume 105.1 fL (80-94); Mean Platelet Vol. 11.9 fl (6.2-12.0); Monocyte# 1.36 X10^3/uL; Monocyte% 21.7 % (0-10); NRBC Flagged by Analyzer 0 % (0-5); Neutrophil # 3.68 X10^3/uL (2.7-7.7); Neutrophil % 58.7 % (47-70); POSITIVE MORPHOLOGY YES; Platelet Count 122 K/mm3 (150-450); RBC Distribution Width CV 18.1 % (11.6-14.6); RBC Distribution Width SD 69.1 fl (35.1-43.9); Red Blood Count 2.16 M/mm3 (4.6-6.2); White Blood Count 6.3 K/mm3 (4.4-11.0)
[2021-12-10 06:13] LABS: International Normalized Ratio 1.6; Prothrombin Time (Protime)PT. 18.7 SECONDS (11.7-14.9)
[2021-12-10 06:14] LABS: Partial Thromboplast Time 36.2 Seconds (24.1-36.2)
[2021-12-10 06:23] LABS: Anisocytosis 2+; Atypical Lymphocyte 1+ %; Macrocytosis 2+
[2021-12-10 06:33] LABS: Anion Gap 7 (5-15); BUN 71 mg/dL (7-18); BUN/Creat Ratio 39.4 RATIO (10-20); Calcium,Total 8.3 mg/dL (8.5-10.1); Chloride 116 mmol/L (98-107); EST Glomerular Filtration Rate 38 mL/min (>60); Est Glom Filt Rate - Afr Amer 46 mL/min (>60); Estimated Creatinine Clearance 31.73 ml/min; Glucose 112 mg/dL (74-106); Potassium 4.8 mmol/L (3.5-5.1); Sodium Level 144 mmol/L (136-145)
[2021-12-10 06:59] LABS: Thyroid Stim Hormone (TSH) 0.79 uIU/mL (0.358-3.74)
--- NOTE | 2021-12-10 09:58 | CON.PCM.CA_ITS ---
Assessment & Plan Assessment/Plan (1) Atrial flutter: PLAN: The patient has a history of atrial flutter. He has been treated with rate control therapy and antiplatelet therapy as he had was not thought to be a risk-benefit ratio in his favor patient for systemic anticoagulant therapy. As he has not been anticoagulated he has not been able to undergo any attempt at regaining sinus rhythm. At the moment his rate does appear to be controlled. His antiplatelet therapy may be placed on hold based upon concerns of anemia thought secondary to GI bleeding process and the need for upcoming endoscopy procedures. (2) Atherosclerotic heart disease of [place] coronary artery without angina pectoris: PLAN: The patient has a history of CAD. His previous history is noted. He has no symptoms at this time suspicious for underlying ongoing angina pectoris or acute coronary syndrome. His recent noninvasive studies are noted. He should continue risk factor modification medical therapy as deemed appropriate. (3) Presence of stent in coronary artery: PLAN: The patient's previous PCI history as noted. Again at the moment he appears to be stable. He will continue medical therapy. (4) Pure hypercholesterolemia: PLAN: The patient has history of hyperlipidemia. He has been on lipid-lowering therapy. (5) Essential hypertension: PLAN: The patient's blood pressure should be followed with his medicines adjusted accordingly. (6) Pulmonary HTN: PLAN: Based upon the patient's transthoracic echocardiogram there is evidence of underlying elevated right-sided pressures reflective of pulmonary hypertension. The patient appears to be without acute pulmonary distress at this time or acute right heart involvement/failure at this time. He should continue medical management for his cardiopulmonary conditions as best as possible at his age. (7) Anemia: PLAN: The patient is anemic thought secondary to a GI bleeding process. He is going to receive PRBCs which should benefit his O2 carrying capacity and his cardiovascular status. He should be monitored for any obvious issues of volume overload. (8) GI bleed: PLAN: The patient is Hemoccult positive. He will undergo GI evaluation which is going to include endoscopy procedures. (9) Preoperative cardiovascular examination: PLAN: From a preoperative standpoint the patient appears to be stable from a cardiovascular standpoint at this time. He should continue cardiac monitoring during and following his procedure with respect to his vital signs and cardiac rate and rhythm. An attempt should be made to avoid significant fluctuations in his vital signs. Also an attempt should be made to avoid significant IV volume overload during or following his procedure. He should continue medical therapy in and around time of his procedure as best as possible with the exception of interrupting his antiplatelet therapy. Addt'l Comments The patient will proceed as noted above. It does not appear he requires additional cardiac diagnostic studies/intervention at this time. The above was discussed and reviewed with the patient. Thank you for allowing me to participate in the care of your patient. Please don't hesitate to call if any issues arise. This note was generated using a voice recognition system and there may be incorrect words, spelling or punctuation that were not noted when reviewing the office note prior to saving. HPI Consult Data Date of Consult: 12/10/21 HPI Narrative HPI Narrative: ASIA WILSON, is a 86 year old white male who presents cardiovascular consult ation for preoperative evaluation based upon concerns of anemia and gastrointestinal bleeding process and the need of upcoming endoscopic procedures with a cardiovascular history of CAD, status post remote PCI (2000) atrial flutter, hyperlipidemia, and hypertension. At the present time he denies any ongoing symptoms of classic angina pectoris or obvious CHF or pulmonary edema. He does have an element of chronic lower extremity peripheral pitting edema. There has been no report of near syncope or syncope. He states his main concern is he has been more tired and fatigued. He was evaluated at the [facility] emergency department. He was noted to have progressive anemia and Hemoccult positive stools. He was placed in the hospital for further inpatient evaluation and care including PRBC transfusion and the need for upcoming endoscopy procedures. He had been evaluated in [place] in the past. It appears that he underwent a diagnostic cardiac catheterization on 08-17-2000. At that time the left main coronary artery had 40% stenosis into the LAD to have a severe proximal 80% stenosis. The LCx had a severe OM2 90% stenosis. The RCA was occluded. The LV function was reported as good . The patient underwent LAD PTCA and he also had a PTCA/stent with a 3.5 x 18 mm MultiLink stent to the OM 2. It appears he had a repeat diagnostic cardiac catheterization on 01-13-2001. At that time his LV was thought to be normal. A small first diagonal branch had a 90% stenosis. The OM1 was chronically occluded. The OM 2 had a 90% stenosis. He underwent PTCA/stent to the OM 2 with what was reported as a good result . He is continued medical therapy and noninvasive evaluation since that time. He relocated to [place]. He established outpatient cardiovascular care in June of this year. Since that time he has undergone further evaluation with a transthoracic echocardiogram and a pharmacologic stress nuclear imaging study based upon the concerns of his underlying atrial dysrhythmia. The results are noted below. He has had atrial flutter. He has been treated medically. He was not placed on anticoagulant therapy based upon concerns of a combination of the risk-benefit profile at his age, frail state, with his gait disability, etc. It appears as part of his evaluation he had an ECG. He was noted to be in atrial flutter. He had low voltage QRS. He had nonspecific T wave change. [facility] Medical History (Updated 12/10/21 @ 10:[address] Delfino Allison MD) Arthritis Atherosclerotic heart disease of [place] coronary artery without angina pectoris Atrial flutter Encounter for screening for COVID-19 Essential hypertension Heart disease Hypertension Preoperative cardiovascular examination Presence of stent in coronary artery (~01/13/01) Pure hypercholesterolemia Rheumatic fever Shortness of breath URI (upper respiratory infection) Home Medications aspirin 81 mg tablet,delayed release (Adult Aspirin Regimen) 81 mg PO DAILY 01/23/21 [History Last Taken Unknown] atorvastatin 40 mg tablet 40 mg PO DAILY 01/23/21 [History Last Taken Unknown] clopidogrel 75 mg tablet 75 mg PO DAILY 01/23/21 [History Last Taken Unknown] levothyroxine 125 mcg tablet (Euthyrox) 125 mcg PO DAILY 01/23/21 [History Last Taken Unknown] lisinopril 40 mg tablet 40 mg PO DAILY 01/23/21 [History Last Taken Unknown] ascorbic acid (vitamin C) 500 mg tablet 500 mg PO DAILY 07/07/21 [History Last Taken Unknown] cholecalciferol (vitamin D3) 25 mcg (1,000 unit) tablet 25 mcg PO DAILY 07/07/21 [History Last Taken Unknown] multivitamin 1 tab PO DAILY 07/07/21 [History Last Taken Unknown] furosemide 40 mg tablet 20 mg PO DAILY 07/09/21 [History Last Taken Unknown] metoprolol tartrate 25 mg tablet 12.5 mg PO BID 07/09/21 [History Last Taken Unknown] omega 8-lhn-odk-fish oil 60 mg-90 mg-500 mg capsule (Fish Oil) 1 cap PO DAILY 07/09/21 [History Last Taken Unknown] allopurinol 300 mg tablet 150 mg PO DAILY 08/20/21 [History Last Taken Unknown] lactobacillus combination no.4 3 billion cell capsule (Probiotic) 3,000 mmu cells PO DAILY 12/09/21 [History Last Taken Unknown] loratadine 10 mg tablet (Claritin) 10 mg PO DAILY 12/09/21 [History Last Taken Unknown] Allergy/AdvReac Type Severity Reaction Status Date / Time adhesive tape Allergy Mild RASH Verified 08/20/21 14:32 iodine Allergy Mild UNKNOWN Verified 08/20/21 14:32 Family History Father Myocardial infarction, Onset Age: 46 Surgical History History of carpal tunnel release History of cholecystectomy Presence of coronary angioplasty implant and graft (~01/13/01) Social History Smoking Status: Never smoker alcohol intake: never substance use type: does not use caffeine: Yes Type: coffee Number of servings: 1 ROS Constitutional Constitutional: Reports fatigue Eyes Eyes: Reports as per HPI ENT HEENT: Reports as per HPI Cardiovascular Cardiovascular: Reports fatigue Respiratory/Chest Respiratory/Chest: Reports as per HPI Gastrointestinal Gastrointestinal: Reports as per HPI Genitourinary Genitourinary: Reports as per HPI Musculoskeletal Musculoskeletal: Reports as per HPI Integumentary Integumentary: Reports as per HPI Neurologic Neurologic: Reports as per HPI Physical Exam Const alert, oriented x3 and no apparent distress General Appearance: other Frail-appearing Orientation / Consciousness: awake Eyes PERRL, EOMs intact bilaterally, conjunctivae normal and no scleral icterus Neck full ROM, supple and no JVD Carotids: normal carotid upstroke Resp normal respiratory effort and clear to auscultation bilaterally Cardio Rhythm: abnormal rhythm regularly irregular Heart Sounds: S1 normal and S2 normal GI normal to inspection, nondistended, normoactive bowel sounds Extremity General Extremity: edema bilateral lower extremity (Chronic appearing) Details: moderate Skin no rashes or lesions noted Psych mental status grossly normal Risk Stratification Risk Stratification Applicable: No Procedure Criteria Type of Procedure Procedure Type: Elective Elective Risks - COVID COVID Risk Discussion: The surgeon/proceduralist and patient have discussed in detail the risk of exposure to and/or potential harm posed by the COVID-19 virus with having a surgery/procedure at this time versus the risk of delaying the surgery/procedure. It is not possible to know either the risk of delaying the surgery or procedure or chance of getting an infection with perfect accuracy, but a joint decision was made between the patient and the surgeon/proceduralist to proceed at this time with the scheduled surgery/procedure as indicated on the consent form. Objective Data Vital Signs: Vital Signs Temp Pulse Resp BP Pulse Ox O2 Del Method 98.9 F 73 20 H 107/57 L 98 Room Air 12/10/21 08:00 12/10/21 08:00 12/10/21 08:00 12/10/21 08:00 12/10/21 08:00 12/10/21 08:20 Oxygen Delivery Method Room Air Weight: 206 lb 12.697 oz Body Mass Index (BMI) 28.0 Intake & Output: Intake and Output for Last 24 Hours 12/08/21 12/09/21 12/10/21 23:59 23:59 23:59 Intake Total 1110 / 1110 530 / 530 Balance 1110 / 1110 530 / 530 Lab / Micro Data Result Diagrams: 12/10/21 05:55 12/10/21 05:55 Labs: Laboratory Results - last 24 hr 12/09/21 20:06: WBC 7.1, RBC 2.40 L, Hgb 8.0 L, Hct 25.4 L, MCV 105.8 H, MCH 33.3 H, MCHC 31.5 L, RDW Std Deviation 70.5 H, RDW Coeff of Jesu 18.1 H, Plt Count 121 L, MPV 9.8, Immature Gran % (Auto) 1.400 H, Neut % (Auto) 57.1, Lymph % (Auto) 16.2 L, [place] % (Auto) 23.0 H, Eos % (Auto) 1.6, Baso % (Auto) 0.7, Absolute Neuts (auto) 4.0, Absolute Lymphs (auto) 1.15, Nucleated RBC % 0, Differential Comment SCANNED, Anisocytosis 1+ 12/09/21 20:06: PT 18.1 H, INR 1.5, APTT 35.1 12/09/21 20:06: Sodium 143, Potassium 5.5 H, Chloride 114 H, Carbon Dioxide 24.0, Anion Gap 5, BUN 72 H, Creatinine 2.06 H, Estim Creat Clear Calc 27.73, Est GFR (MDRD) Af Amer 39 L, Est GFR (MDRD) Non-Af 33 L, BUN/Creatinine Ratio 35.0 H, Glucose 133 H, Calcium 9.1 12/09/21 21:41: Urine Color Yellow, Urine Clarity Clear, Urine pH 5.0, Ur Specific [place] 1.015, Urine Protein 15 H, Urine Glucose (UA) Normal, Urine Ketones Negative, Urine Occult Blood Negative, Urine Nitrite Negative, Urine Bilirubin Negative, Urine Urobilinogen 4 H, Ur Leukocyte Esterase 25 H, Urine RBC 0 SEEN, Urine WBC 0-5 SEEN, Ur Squamous Epith Cells 0-5 SEEN, Urine Bacteria 1+, Hyaline Casts 10-25 SEEN, Fine Granular Casts 0-5 SEEN, Coarse Granular Casts 5-10 SEEN, Urine Mucus 0 SEEN 12/10/21 05:55: Sodium 144, Potassium 4.8, Chloride 116 H, Carbon Dioxide 21.0, Anion Gap 7, BUN 71 H, Creatinine 1.80 H, Estim Creat Clear Calc 31.73, Est GFR (MDRD) Af Amer 46 L, Est GFR (MDRD) Non-Af 38 L, BUN/Creatinine Ratio 39.4 H, Glucose 112 H, Calcium 8.3 L 12/10/21 05:55: WBC 6.3, RBC 2.16 L, Hgb 7.1 L, Hct 22.7 L, MCV 105.1 H, MCH 32.9 H, MCHC 31.3 L, RDW Std Deviation 69.1 H, RDW Coeff of [place] 18.1 H, Plt Count 122 L, MPV 11.9, Immature Gran % (Auto) 1.300 H, Neut % (Auto) 58.7, Lymph % (Auto) 16.1 L, [place] % (Auto) 21.7 H, Eos % (Auto) 1.6, Baso % (Auto) 0.6, Absolute Neuts (auto) 3.7, Absolute Lymphs (auto) 1.01, Nucleated RBC % 0, Atypical Lymphocytes 1+, Anisocytosis 2+, Macrocytosis 2+ 12/10/21 05:55: PT 18.7 H, INR 1.6, APTT 36.2 12/10/21 05:55: TSH 0.79 12/10/21 08:30: Crossmatch See Detail Micro: Microbiology 12/09/21 21:00 Stool Stool Occult Blood (DMITRY) - Final Occult Blood Positive Cardiology Labs/Tests 12/09/21 20:06: WBC 7.1, RBC 2.40 L, Hgb 8.0 L, Hct 25.4 L, MCV 105.8 H, MCH 33.3 H, MCHC 31.5 L, Plt Count 121 L, MPV 9.8, Immature Gran % (Auto) 1.400 H, Neut % (Auto) 57.1, Lymph % (Auto) 16.2 L, [place] % (Auto) 23.0 H, Eos % (Auto) 1.6, Baso % (Auto) 0.7, Absolute Neuts (auto) 4.0, Nucleated RBC % 0 12/09/21 20:06: PT 18.1 H, INR 1.5, APTT 35.1 12/09/21 20:06: Sodium 143, Potassium 5.5 H, Chloride 114 H, Carbon Dioxide 24.0 , Anion Gap 5, BUN 72 H, Creatinine 2.06 H, Est GFR (MDRD) Af Amer 39 L, Est GFR (MDRD) Non-Af 33 L, BUN/Creatinine Ratio 35.0 H, Glucose 133 H, Calcium 9.1 12/09/21 21:41: Urine Color Yellow, Urine Clarity Clear, Urine pH 5.0, Ur Specific [place] 1.015, Urine Protein 15 H, Urine Glucose (UA) Normal, Urine Ketones Negative, Urine Occult Blood Negative, Urine Nitrite Negative, Urine Bilirubin Negative, Urine Urobilinogen 4 H, Ur Leukocyte Esterase 25 H, Urine RBC 0 SEEN, Urine WBC 0-5 SEEN 12/10/21 05:55: Sodium 144, Potassium 4.8, Chloride 116 H, Carbon Dioxide 21.0, Anion Gap 7, BUN 71 H, Creatinine 1.80 H, Est GFR (MDRD) Af Amer 46 L, Est GFR (MDRD) Non-Af 38 L, BUN/Creatinine Ratio 39.4 H, Glucose 112 H, Calcium 8.3 L 12/10/21 05:55: WBC 6.3, RBC 2.16 L, Hgb 7.1 L, Hct 22.7 L, MCV 105.1 H, MCH 32.9 H, MCHC 31.3 L, Plt Count 122 L, MPV 11.9, Immature Gran % (Auto) 1.300 H, Neut % (Auto) 58.7, Lymph % (Auto) 16.1 L, [place] % (Auto) 21.7 H, Eos % (Auto) 1.6, Baso % (Auto) 0.6, Absolute Neuts (auto) 3.7, Nucleated RBC % 0 12/10/21 05:55: PT 18.7 H, INR 1.6, APTT 36.2 Rhythm: As noted above EKG: As noted above ECHO: 08-06-2021 Interpretation Summary Left ventricular systolic function is normal. The estimated ejection fraction is 65 %. The left atrium is mildly enlarged. The right atrium is mildly enlarged. Mild focal mitral valve calcification of the anterior leaflet. Mild-Moderate (1-2+) mitral valve insufficiency. Mild to moderate (1-2+) tricuspid valve insufficiency. Mild focal aortic valve thickening. Mild (1+) aortic valve insufficiency. Mild-Moderate (1-2+) pulmonic valve insufficiency. Right ventricular systolic pressure estimated to be 62 mmHg. Unable to assess diastolic dysfunction. Stress Test: Stress Test Report Date: 08-03-2021 Procedure: Pharmacologic stress nuclear imaging study? Indications: Atrial flutter; CAD; PCI Consent: Per the patient Procedure: The patient underwent pharmacologic (Regadenoson 0.4mg ) evaluation with a peak heart rate of 60 beats per minute (45%predicted maximal heart rate) and a peak blood pressure of 116/74 mmHg. The baseline ECG demonstrated atrial flutter; poor R wave progression.? The peak pharmacologic ECG demonstrated no obvious ECG changes. There were no cardiac dysrhythmias pretest, during pharmacologic infusion, or recovery. There was no complaint of chest discomfort during pharmacologic infusion or recovery. The examination was discontinued secondary to completion of protocol. Impression: 1.? Pharmacologic (Regadenoson) evaluation 2.? Peak pharmacologic ECG with continued atrial flutter with poor R wave progression with no obvious ECG changes. 3. There were no cardiac dysrhythmias pretest, during pharmacologic infusion, or recovery. 4.? Nuclear images pending Myocardial perfusion imaging study: Technique: The patient was injected with 14.1 millicuries of technetium 99m Cardiolite and subsequently rest SPECT Cardiolite nuclear imaging was obtained in the horizontal long, vertical long, and short axis views. The patient underwent pharmacologic (Regadenoson) evaluation with a peak heart rate of 60 beats per minute (45% percent predicted maximal heart rate) and a peak blood pressure of 116/74 mmHg. The patient was injected with 44.3 millicuries of technetium 99m Cardiolite and subsequently stress SPECT Cardiolite nuclear imaging was obtained in the horizontal long, vertical long, and short axis views.? A gated Cardiolite study at peak stress was obtained. Interpretation: Rest and stress SPECT Cardiolite nuclear imaging status post realignment, normalization, and attenuation correction demonstrate relative uniform tracer uptake and myocardial perfusion appearing within normal limits. There is end systolic thickening and brightening. The gated Cardiolite study demonstrates myocardial thickening and inward wall motion.? The reported LVEF is 78%. Impression: 1. Rest and stress SPECT Cardiolite nuclear imaging demonstrate relative uniform tracer uptake and myocardial perfusion appearing within normal limits. 2.? The gated Cardiolite study reports an LVEF of 78%. Cardiac Cath: As noted above PCI: As noted above Radiography Diagnostic Testing: Radiology Impression Chest X-Ray 12/09/21 20:10 IMPRESSION: Questionable trace right pleural effusion. Electronically Signed: Edenilson Issa MD at 21:54 EDT ,
--- NOTE | 2021-12-10 10:20 | CASEMGMT ---
RN CM Face to Face with patient for initial transition planning/care coordination assessment. RN CM introduced self and role at [facility] [place]. Patient lying in bed, alert and oriented, at bedside. Patient willing to participate in assessment and is able to answer all questions appropriately. Care providers, pharmacy, and demographics verified. Patient wishes to discharge home, may benefit from HHC vs SNF at discharge, will monitor progress with therapy. Patient and state they have no further needs or concerns at this time. CM to follow for discharge planning needs that may arise. PCP: [facility] Specialists: Estefany furnace combination analyst Preferred Pharmacy: Whitney Maciel: [facility] [place] retail at discharge Insurance: [employer] Prescription Benefit: yes Living Will/HPOA: not sure LNOK: Living Arrangements: Patient lives with in a single story condo with no steps to enter. Patient is independent at home prior to current illness Transportation: DME/HHC: Patient has shower chair, BSC, raised toilet, grab bars, hand held shower, walker, rollator at home. No previous HHC or SNF Disposition Plan: TBD, anticipate HHC vs SNF at discharge, will monitor progress with therapy. Stephanie FERNÁNDEZN, RN, CM
--- NOTE | 2021-12-10 10:21 | NURSING ---
MOUTH SWABBED W/SPONGE AND TAP WATER DURING BOTH ROUNDS SO FAR THIS MORNING
--- NOTE | 2021-12-10 11:51 | NURSING ---
1100-PT OFF FLOOR VIA BED FOR SCHEDULED PROCEDURE
[2021-12-10] MEDS: Nalbuphine 10 MG/ML Ampul 5 MG IV (12:07)
--- NOTE | 2021-12-10 13:44 | OP.CCLET_ITS ---
12/10/2021 Agus Almaguer [address] [place] [address] Re : Upper GI endoscopy procedure for [facility] Dear Dr. Almaguer This procedure was performed on November. My impressions and recommendations are as follows: Impressions : - Normal esophagus. 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 Treated with a heater probe. - Normal second portion of the duodenum. - No specimens collected. Recommendations : - - - Continue present medications. My findings are described in the full procedure note, which is enclosed. If I can be of further assistance, please feel free to contact me at . Sincerely, Eduardo Leach, 12/10/2021 1:43:32 PM This report has been signed electronically.
--- NOTE | 2021-12-10 13:44 | OP.EGD_ITS ---
Patient Name: Ryan Granados Procedure Date: 12/10/2021 12:56 PM Date of : 1935 Age: 86 Procedure: Upper GI endoscopy Indications: Iron deficiency anemia Providers: Eduardo Leach DO Medicines: Monitored Anesthesia Care Patient Profile: This is an 86 year old male. Refer to note in patient chart for documentation of history and physical. Complications: No immediate complications. Procedure: Pre-Anesthesia Assessment: - Prior to the procedure, a History and Physical was performed, and patient medications and allergies were reviewed. The risks and benefits of the procedure and the sedation options and risks were discussed with the patient. All questions were answered and informed consent was obtained. Patient identification and proposed procedure were verified by the physician in the pre-procedure area. Mental Status Examination: alert and oriented. Airway Examination: normal oropharyngeal airway and neck mobility. Respiratory Examination: clear to auscultation. CV Examination: normal. Prophylactic Antibiotics: The patient does not require prophylactic antibiotics. Prior Anticoagulants: The patient has taken no previous anticoagulant or antiplatelet agents. ASA Grade Assessment: III - A patient with severe systemic disease. After reviewing the risks and benefits, the patient was deemed in satisfactory condition to undergo the procedure. The anesthesia plan was to use monitored anesthesia care (MAC). Immediately prior to administration of medications, the patient was re-assessed for adequacy to receive sedatives. The heart rate, respiratory rate, oxygen saturations, blood pressure, adequacy of pulmonary ventilation, and response to care were monitored throughout the procedure. The physical status of the patient was re-assessed after the procedure. After obtaining informed consent, the endoscope was passed under direct vision. Throughout the procedure, the patient's blood pressure, pulse, and oxygen saturations were monitored continuously. The gastroscope was introduced through the mouth, and advanced to the second part of duodenum. The upper GI endoscopy was accomplished without difficulty. The patient tolerated the procedure well. Scope In: 1:10:38 PM Scope Out: 1:16:59 PM Total Procedure Duration Time 0 hours 6 minutes 21 seconds Findings: The lower third of the esophagus was normal. A single 5 mm bleeding angiodysplastic lesion was found in the cardia. Coagulation for hemostasis using heater probe was successful. The exam of the stomach was otherwise normal. The second portion of the duodenum was normal. Mucosal changes including ringed esophagus and small-caliber esophagus were found in the upper third of the esophagus. Esophageal findings were graded using the Eosinophilic Esophagitis Endoscopic Reference Score (EoE-EREFS) as: Rings Grade 2 Moderate (distinct rings that do not occlude passage of diagnostic 8-10 mm endoscope), Exudates Grade 1 Mild (scattered white lesions involving less than 10 percent of the esophageal surface area) and Furrows Grade 1 Present (vertical lines with or without visible depth). Impression: - Normal esophagus. 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 Treated with a heater probe. - Normal second portion of the duodenum. - No specimens collected. Recommendation: - - - Continue present medications. Procedure Code(s): --- Professional --- 23046, Esophagogastroduodenoscopy, flexible, transoral; with control of bleeding, any method CPT copyright 2017 [employer]. All rights reserved. The codes documented in this report are preliminary and upon still operator helper review may be revised to meet current compliance requirements. Eduardo Leach DO 12/10/2021 1:43:32 PM This report has been signed electronically. Number of Addenda: 0 Note Initiated On: 12/10/2021 12:56 PM
--- NOTE | 2021-12-10 14:30 | PN.HOSP_ITS ---
Subjective Subjective Patient seen and examined. He had no active complaints this morning. He denied any abdominal pain, nausea, fever or chills or any other symptoms. Review of systems is otherwise negative. GI is on board. Objective Data Objective Data Vital Signs: Vital Signs Temp Pulse Resp BP Pulse Ox O2 Del Method 97.5 F L 67 18 105/51 L 98 Room Air 12/10/21 13:51 12/10/21 13:51 12/10/21 13:51 12/10/21 13:51 12/10/21 13:51 12/10/21 13:51 Oxygen Delivery Method Room Air Weight: 206 lb 12.697 oz Body Mass Index (BMI) 28.0 Intake & Output: Intake and Output for Last 24 Hours 12/08/21 12/09/21 12/10/21 23:59 23:59 23:59 Intake Total 1110 / 1110 1560 / 1560 Balance 1110 / 1110 1560 / 1560 Lab / Micro Data Result Diagrams: 12/10/21 05:55 12/10/21 05:55 Labs: Laboratory Results - last 24 hr 12/09/21 20:06: WBC 7.1, RBC 2.40 L, Hgb 8.0 L, Hct 25.4 L, MCV 105.8 H, MCH 33.3 H, MCHC 31.5 L, RDW Std Deviation 70.5 H, RDW Coeff of Jesu 18.1 H, Plt Count 121 L, MPV 9.8, Immature Gran % (Auto) 1.400 H, Neut % (Auto) 57.1, Lymph % (Auto) 16.2 L, [place] % (Auto) 23.0 H, Eos % (Auto) 1.6, Baso % (Auto) 0.7, Absolute Neuts (auto) 4.0, Absolute Lymphs (auto) 1.15, Nucleated RBC % 0, Differential Comment SCANNED, Anisocytosis 1+ 12/09/21 20:06: PT 18.1 H, INR 1.5, APTT 35.1 12/09/21 20:06: Sodium 143, Potassium 5.5 H, Chloride 114 H, Carbon Dioxide 24.0, Anion Gap 5, BUN 72 H, Creatinine 2.06 H, Estim Creat Clear Calc 27.73, Est GFR (MDRD) Af Amer 39 L, Est GFR (MDRD) Non-Af 33 L, BUN/Creatinine Ratio 35.0 H, Glucose 133 H, Calcium 9.1 12/09/21 21:41: Urine Color Yellow, Urine Clarity Clear, Urine pH 5.0, Ur Specific Galliano 1.015, Urine Protein 15 H, Urine Glucose (UA) Normal, Urine Ketones Negative, Urine Occult Blood Negative, Urine Nitrite Negative, Urine Bilirubin Negative, Urine Urobilinogen 4 H, Ur Leukocyte Esterase 25 H, Urine RBC 0 SEEN, Urine WBC 0-5 SEEN, Ur Squamous Epith Cells 0-5 SEEN, Urine Bacteria 1+, Hyaline Casts 10-25 SEEN, Fine Granular Casts 0-5 SEEN, Coarse Granular Casts 5-10 SEEN, Urine Mucus 0 SEEN 12/10/21 05:55: Sodium 144, Potassium 4.8, Chloride 116 H, Carbon Dioxide 21.0, Anion Gap 7, BUN 71 H, Creatinine 1.80 H, Estim Creat Clear Calc 31.73, Est GFR (MDRD) Af Amer 46 L, Est GFR (MDRD) Non-Af 38 L, BUN/Creatinine Ratio 39.4 H, Glucose 112 H, Calcium 8.3 L 12/10/21 05:55: WBC 6.3, RBC 2.16 L, Hgb 7.1 L, Hct 22.7 L, MCV 105.1 H, MCH 3 2.9 H, MCHC 31.3 L, RDW Std Deviation 69.1 H, RDW Coeff of Jesu 18.1 H, Plt Count 122 L, MPV 11.9, Immature Gran % (Auto) 1.300 H, Neut % (Auto) 58.7, Lymph % (Auto) 16.[address] L, [place] % (Auto) 21.7 H, Eos % (Auto) 1.6, Baso % (Auto) 0.6, Absolute Neuts (auto) 3.7, Absolute Lymphs (auto) 1.01, Nucleated RBC % 0, Atypical Lymphocytes 1+, Anisocytosis 2+, Macrocytosis 2+ 12/10/21 05:55: PT 18.7 H, INR 1.6, APTT 36.2 12/10/21 05:55: TSH 0.79 12/10/21 08:30: Blood Type O POSITIVE, Antibody Screen NEGATIVE, Crossmatch See Detail Micro: Microbiology 12/09/21 21:00 Stool Stool Occult Blood (DMITRY) - Final Occult Blood Positive Radiography Diagnostic Testing: Radiology Impression Chest X-Ray 12/09/21 20:10 IMPRESSION: Questionable trace right pleural effusion. Electronically Signed: Edenilson Issa MD at 21:54 EDT , Physical Exam Const alert, oriented x3 and no apparent distress HEENT head/scalp atraumatic, moist oral mucous membranes and oropharynx normal Head and Scalp: normocephalic Mouth: oral and palatal mucosa normal Eyes PERRL Neck no lymphadenopathy, supple and no JVD Resp normal respiratory effort, no retractions, no use of accessory muscles and clear to auscultation bilaterally Cardio regular rate, regular rhythm, S1 normal heart sound, S2 normal heart sound and no murmurs GI normal to inspection, nondistended, normoactive bowel sounds, soft to palpation, non-tender and non-distended Extremity normal to inspection, full ROM and no clubbing, cyanosis or edema Neuro oriented x3, CN's II-XII intact bilaterally, moves all extremities and no focal motor deficits Sensorium / Orientation: awake and alert Motor Exam: strength 5/5 throughout Psych affect normal Assessment & Plan Assessment/Plan (1) GI bleed: (2) Upper GI bleed: (3) Anemia: PLAN: Plan #Acute on chronic anemia due to GI bleed * admitted with a complaitn of fatigue. Still feels weak and tired * stool for occult blood is positive * Hb was 8 on admission and dropped to 7.1 this morning * GI on board. For EGD today. 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 * Was 2.06 on admission, with a baseline of 1.8 * continue gentle hydration with IVF #CAD: s/p stents. * Lasix on hold due to CHEYANNE. metoprolol and lisinopril also held due to CHEYANNE. * aspirin and plavix also held due to GI bleed. * #DEbillity due to acute on chronic anemia * Pt.OT on board. fall precautions * #Asymptomatic bacteriuria: * Urinalysis shows 1+ bacteria * Patient is asymptomatic. We will get urine culture. #Atrial fibrillation: rate controlled. metoprolol held as BP was soft. not on blood thinners DVT prophylaxis: SCDs Charges/Coding Visit Charges Inpatient E&M: 76836 Subs Hosp L3
[2021-12-10] MEDS: Bisacodyl 5 MG Tablet 20 MG PO (15:06)
[2021-12-10] MEDS: Loratadine 10 MG Tablet PO (15:06)
[2021-12-10] MEDS: Polyethylene Glycol 3350 BOWEL PREP PO (15:07)
[2021-12-10] MEDS: Ascorbic Acid 500 MG Tablet PO (15:07)
[2021-12-10] MEDS: Allopurinol 100 MG Tablet PO (15:07)
[2021-12-10] MEDS: Cholecalciferol (VIT D3) 25 MCG TABLET (1,000 UNITS) PO (15:07)
[2021-12-10 15:18] LABS: Hematocrit 25.5 % (40-54); Hemoglobin 8.2 g/dL (13.0-16.5)
--- NOTE | 2021-12-10 15:43 | NURSING ---
UNSURE TO WHAT TIME THE 1ST BLOOD TRANSFUSION WAS COMPLETED. THIS NURSE INFORMED AC NURSE, ANNE, THAT 1ST OF 2 UNITS WAS INFUSING, THE VS OBTAINED WHEN PT WAS FIRST BROUGHT TO AC5 WAS THE END OF THE 15 MIN INFUSION AND RATE WAS INCREASED. TOLD SAME NURSE THAT THE PAPER FOR THE 2ND UNIT WAS ON THE FRONT OF THE CHART. THIS NURSE WAS TOLD BLOOD TRANSFUSION WAS COMPLETED BUT NOTICED THERE WAS NO FURTHER CHARTING ON THE 1ST UNIT FROM WHAT THIS NURSE CHARTED. BLOOD BANK CALLED TO VERIFY THAT 2ND UNIT WAS NOT GIVEN, AFTER ATTEMPTING TO REACH ENDO/AC STAFF.
[2021-12-10 21:01] LABS: Hematocrit 29.2 % (40-54); Hemoglobin 9.4 g/dL (13.0-16.5)
[2021-12-10] MEDS: Atorvastatin Calcium 40 MG Tablet PO (22:07)
[2021-12-11] VITALS (15 sets, daily range): BP systolic 88–123; BP diastolic 45–74; PULSE 57–81; RESP 14–20; TEMP 36.6–37.1; O2SAT 93–99; BMI 28.0
[2021-12-11 01:23] LABS: Hematocrit 29.6 % (40-54); Hemoglobin 9.5 g/dL (13.0-16.5)
[2021-12-11] MEDS: Levothyroxine 125 MCG Tablet PO (06:07)
[2021-12-11 06:40] LABS: Absolute Lymphocyte Count 1.04 X10^3/uL (0.83-4.51); Absolute Neutrophil Count 5.7 X10^3/uL (2.0-7.7); Basophil# 0.04 X10^3/uL; Basophil% 0.5 % (0-1); Eosinophil# 0.12 X10^3/uL; Eosinophils% 1.4 % (0-5); Hematocrit 29.9 % (40-54); Hemoglobin 9.4 g/dL (13.0-16.5); Lymphocyte # 1.04 X10^3/ul (0.83-4.51); Lymphocyte % 12.3 % (19-41); Mean Corp Hgb Conc 31.4 g/dL (32-36); Mean Corpuscular Hgb 32.1 pg (27.0-32.0); Mean Platelet Vol. 11.2 fl (6.2-12.0); Monocyte# 1.48 X10^3/uL; Monocyte% 17.5 % (0-10); NRBC Flagged by Analyzer 0 % (0-5); Neutrophil % 67.1 % (47-70); POSITIVE MORPHOLOGY YES; Platelet Count 115 K/mm3 (150-450); RBC Distribution Width CV 19.6 % (11.6-14.6); RBC Distribution Width SD 73.7 fl (35.1-43.9); Red Blood Count 2.93 M/mm3 (4.6-6.2); White Blood Count 8.5 K/mm3 (4.4-11.0)
[2021-12-11 06:42] LABS: Differential Indicated SCAN CRITERIA MET
[2021-12-11 07:08] LABS: Anion Gap 5 (5-15); BUN 66 mg/dL (7-18); BUN/Creat Ratio 37.1 RATIO (10-20); Calcium,Total 8.6 mg/dL (8.5-10.1); Chloride 117 mmol/L (98-107); Creatinine, Serum 1.78 mg/dL (0.70-1.30); EST Glomerular Filtration Rate 39 mL/min (>60); Est Glom Filt Rate - Afr Amer 47 mL/min (>60); Estimated Creatinine Clearance 32.09 ml/min; Glucose 137 mg/dL (74-106); Potassium 5.2 mmol/L (3.5-5.1); Sodium Level 145 mmol/L (136-145)
[2021-12-11 07:10] LABS: Anisocytosis 3+; Macrocytosis 2+
[2021-12-11] MEDS: Menthol/Lanolin/Calamine/Znox 113 GM Tube 1 APPLIC TOPICAL ×2 (09:10→21:22)
[2021-12-11] MEDS: Nystatin Powder 15gm Bottle 1 APPLIC TOPICAL ×2 (09:10→21:22)
[2021-12-11] MEDS: Sodium Polystyrene Sulfonate 15 GM/60 ML UDC PO (09:10)
--- NOTE | 2021-12-11 10:28 | PN.HOSP_ITS ---
Subjective Subjective Patient seen and Ament. He had no active complaints this morning. He had EGD yesterday which showed a single bleeding angiodysplastic vessel which was cauterized. He is due for colonoscopy today. Hemoglobin is 9.4. Objective Data Objective Data Vital Signs: Vital Signs Temp Pulse Resp BP Pulse Ox O2 Del Method 98.4 F 74 14 96/47 L 96 Room Air 12/11/21 08:00 12/11/21 08:00 12/11/21 08:00 12/11/21 08:00 12/11/21 09:42 12/11/21 09:42 Oxygen Delivery Method Room Air Weight: 206 lb 12.697 oz Body Mass Index (BMI) 28.0 Intake & Output: Intake and Output for Last 24 Hours 12/09/21 12/10/21 12/11/21 23:59 23:59 23:59 Intake Total 1110 / 1110 2750.75 / 2750.75 826.25 / 826.25 Balance 1110 / 1110 2750.75 / 2750.75 826.25 / 826.25 Lab / Micro Data Result Diagrams: 12/11/21 05:55 12/11/21 05:55 Labs: Laboratory Results - last 24 hr 12/10/21 08:30: Blood Type O POSITIVE, Antibody Screen NEGATIVE, Crossmatch See Detail 12/10/21 15:05: Hgb 8.2 L, Hct 25.5 L 12/10/21 20:40: Hgb 9.4 L, Hct 29.2 L 12/11/21 01:15: Hgb 9.5 L, Hct 29.6 L 12/11/21 05:55: WBC 8.5, RBC 2.93 L, Hgb 9.4 L, Hct 29.9 L, MCV 102.0 H, MCH 32.1 H, MCHC 31.4 L, RDW Std Deviation 73.7 H, RDW Coeff of Jesu 19.6 H, Plt Count 115 L, MPV 11.2, Immature Gran % (Auto) 1.200 H, Neut % (Auto) 67.1, Lymph % (Auto) 12.3 L, Towner % (Auto) 17.5 H, Eos % (Auto) 1.4, Baso % (Auto) 0.5, Absolute Neuts (auto) 5.7, Absolute Lymphs (auto) 1.04, Nucleated RBC % 0, Anisocytosis 3+, Macrocytosis 2+ 12/11/21 05:55: Sodium 145, Potassium 5.2 H, Chloride 117 H, Carbon Dioxide 23.0, Anion Gap 5, BUN 66 H, Creatinine 1.78 H, Estim Creat Clear Calc 32.09, Est GFR (MDRD) Af Amer 47 L, Est GFR (MDRD) Non-Af 39 L, BUN/Creatinine Ratio 37.1 H, Glucose 137 H, Calcium 8.6 Micro: Microbiology 12/09/21 21:00 Stool Stool Occult Blood (DMITRY) - Final Occult Blood Positive Physical Exam Const alert, oriented x3 and no apparent distress HEENT head/scalp atraumatic, moist oral mucous membranes and oropharynx normal Eyes PERRL Neck no lymphadenopathy, supple and no JVD Resp normal respiratory effort, no retractions, no use of accessory muscles and clear to auscultation bilaterally Cardio regular rate, regular rhythm, S1 normal heart sound, S2 normal heart sound and no murmurs GI normal to inspection, nondistended, normoactive bowel sounds, soft to palpation, non-tender and non-distended Extremity normal to inspection, full ROM and no clubbing, cyanosis or edema Neuro oriented x3, CN's II-XII intact bilaterally, moves all extremities and no focal motor deficits Sensorium / Orientation: awake and alert Motor Exam: strength 5/5 throughout Psych affect normal Assessment & Plan Assessment/Plan (1) GI bleed: (2) Upper GI bleed: (3) Anemia: PLAN: Plan #Acute on chronic anemia due to GI bleed * had EGD yesterday which showed normal esophagus and a single bleeding angiodysplastic lesion in the stomach which was treated with a heater probe * for colonoscopy today. 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 Will give 15gram of kayexalate and trend potassium #CAD: s/p stents. * Lasix on hold due to CHEYANNE. metoprolol and lisinopril also held due to CHEYANNE. * aspirin and plavix also held due to GI bleed. * #DEbillity due to acute on chronic anemia * Pt.OT on board. fall precautions * #Asymptomatic bacteriuria: * Urinalysis shows 1+ bacteria * Patient is asymptomatic. We will get urine culture. #Atrial fibrillation: rate controlled. metoprolol held as BP was soft. not on blood thinners DVT prophylaxis: SCDs Charges/Coding Visit Charges Inpatient E&M: 58605 Subs Hosp L2
[2021-12-11] MEDS: 0.9% Saline Lock 10 ML Syringe IV ×2 (13:53→16:43)
--- NOTE | 2021-12-11 14:10 | CASEMGMT ---
Addendum entered by Mimi Poe 12/11/21 15:04: RADHA MINA notified by ELVIA Medina, that TCU has accepted pt and pre-cert has been started. RADHA MINA to room. Pt sleeping. updated and states will inform pt when he wakes up. Original Note: RADHA MINA NOTE: PT/OT notes have been reviewed. Additional therapy recommended. Pt very weak and only able to ambulate 4 ft w/min assist of 2 and required mod assist of 2 sit to stand. RADHA MINA to room. Pt resting in bed. @ bedside. Introduced self and role. Discussed discharge planning and therapies recommendations. Pt states is agreeable to SNF. A list of SNF providers including quality and resource use data and consistent with the patient?s preferred geographic region, medical needs, and insurance network were provided from the [employer] Guide. Pt and 's 1st choice is TCU. ELVIA Medina, made aware. Jacob ALBARRAN RN, CM
--- NOTE | 2021-12-11 15:37 | CASEMGMT ---
Social Work SW advised by RNCM that pt is requesting to go to TCU. Referral made to [facility] in TCU and they are able to accept pt. Precert has been started. Plan: TCU, skilled level of care, pending precert ASIF Pinedo
[2021-12-11] MEDS: Lactated Ringers 1,000 ML 15 ML IV (16:43)
--- NOTE | 2021-12-11 16:58 | NURSING ---
PT OFF UNIT VIA BED FOR SCHEDULED PROCEDURE, ACCOMPANIED
--- NOTE | 2021-12-11 17:00 | COLBX_PTH ---
PATIENT: ASIA WILSON LOC: [facility]3 U#:[id number] AGE/SX: 86/M ROOM: NH315 RE12/09/[address]: Dr. Abby Mcmanus MD : 1935 BED: 1 DIS: 12/12/2021 SPEC #: [id number] RECD: 12/11/21 21:03 STATUS: BHAVNA ARANGO #: [id number] MECHELLE: 12/11/21 17:[address]: Eduardo Leach DEPT: SURGICAL PATHOLOGY RECD BY: Rebecca Arciniega ENTERED: 12/14/21 09:00 SP TYPE: COLON BX OTHR DR: MD Dr. Mathieu Gannon MD Dr. Nana Yaa Koram, MD Dr. Paul Moodispaw, MD Dr. Rahsaan Friend, Tissues: A - Ascending colon B - Sigmoid colon biopsy Procedures: Surgery Specimen Level IV Comments: @ Ordering doctor for SUIV edited from to @ by MATTHEW at 12/14/21 1349 @ Submitting doctor edited from to @ by RGOOD at 12/14/21 1347 HEADER OPERATION: Colonoscopy, polypectomy (MAC) PRE-OP DIAGNOSIS: Anemia TISSUE SUBMITTED: A ? Ascending colon polyp, B ? Sigmoid colon polyp MICROSCOPIC DIAGNOSIS A. Ascending colon polyp, biopsy: Tubular adenoma. B. Sigmoid colon polyp, biopsy: Consistent with inflammatory polyp. AM:yaa 12/15/2021 MICROSCOPIC DESCRIPTION Slides are reviewed. GROSS DESCRIPTION A - Received in fixative is one container labeled with the patient's name and designated ascending colon polyp. The specimen consists of two irregular fragments of light lopez soft tissue that in aggregate measure 0.7 x 0.6 x 0.2 cm. The specimen is totally submitted in one cassette. B - Received in fixative is one container labeled with the patient's name and designated sigmoid colon polyp. The specimen consists of one irregular fragment of light lopez soft tissue that measures 0.5 x 0.3 x 0.1 cm. The specimen is totally submitted in one cassette. / AM:yaa 12/14/2021 TC:5 CPT: 60118 x2
--- NOTE | 2021-12-11 19:52 | OP.COLON_ITS ---
Patient Name: Ryan Granados Procedure Date: 12/11/2021 5:37 PM Date of : 1935 Age: 86 Procedure: Colonoscopy Indications: Iron deficiency anemia Providers: Eduardo Leach DO Medicines: Monitored Anesthesia Care Patient Profile: This is an 86 year old male. Refer to note in patient chart for documentation of history and physical. Last Colonoscopy: none. The patient's first colonoscopy is today. Complications: No immediate complications. Procedure: Pre-Anesthesia Assessment: - Prior to the procedure, a History and Physical was performed, and patient medications and allergies were reviewed. The risks and benefits of the procedure and the sedation options and risks were discussed with the patient. All questions were answered and informed consent was obtained. Patient identification and proposed procedure were verified by the physician in the pre-procedure area. Mental Status Examination: alert and oriented. Airway Examination: normal oropharyngeal airway and neck mobility. Respiratory Examination: clear to auscultation. CV Examination: normal. Prophylactic Antibiotics: The patient does not require prophylactic antibiotics. Prior Anticoagulants: The patient has taken no previous anticoagulant or antiplatelet agents. ASA Grade Assessment: III - A patient with severe systemic disease. After reviewing the risks and benefits, the patient was deemed in satisfactory condition to undergo the procedure. The anesthesia plan was to use monitored anesthesia care (MAC). Immediately prior to administration of medications, the patient was re-assessed for adequacy to receive sedatives. The heart rate, respiratory rate, oxygen saturations, blood pressure, adequacy of pulmonary ventilation, and response to care were monitored throughout the procedure. The physical status of the patient was re-assessed after the procedure. After I obtained informed consent, the scope was passed under direct vision. Throughout the procedure, the patient's blood pressure, pulse, and oxygen saturations were monitored continuously. The Colonoscope was introduced through the anus and advanced to the terminal ileum. The colonoscopy was performed without difficulty. The patient tolerated the procedure well. The quality of the bowel preparation was adequate. Scope In: 7:21:54 PM Scope Out: 7:45:14 PM Total Procedure Duration Time 0 hours 23 minutes 20 seconds Findings: The perianal and digital rectal examinations were normal. Non-bleeding external and internal hemorrhoids were found during retroflexion. The hemorrhoids were mild and Grade I (internal hemorrhoids that do not prolapse). Scattered small and large-mouthed diverticula were found in the entire colon. There was no evidence of diverticular bleeding. Four sessile polyps were found in the sigmoid colon, hepatic flexure and ascending colon. The polyps were 1 to 2 mm in size. These polyps were removed with a cold snare. Resection and retrieval were complete. Verification of patient identification for the specimen was done. Estimated blood loss: none. A single medium-sized localized angiodysplastic lesion with bleeding was found in the descending colon. Coagulation for hemostasis using heater probe was successful. Estimated blood loss was minimal. Impression: - Non-bleeding external and internal hemorrhoids. - Severe diverticulosis in the entire examined colon. There was no evidence of diverticular bleeding. - Four 1 to 2 mm polyps in the sigmoid colon, at the hepatic flexure and in the ascending colon, removed with a cold snare. Resected and retrieved. - A single bleeding colonic angiodysplastic lesion. Treated with a heater probe. Recommendation: - [facility]. - Resume regular diet today. - Continue present medications. - Await pathology results. - No repeat colonoscopy due to age. Procedure Code(s): --- Professional --- 65392, 59, Colonoscopy, flexible; with control of bleeding, any method 05579, Colonoscopy, flexible; with removal of tumor(s), polyp(s), or other lesion(s) by snare technique CPT copyright 2017 [employer]. All rights reserved. The codes documented in this report are preliminary and upon retail link analyst review may be revised to meet current compliance requirements. Eduardo Leach DO 12/11/2021 7:52:07 PM This report has been signed electronically. Number of Addenda: 0 Note Initiated On: 12/11/2021 5:37 PM
--- NOTE | 2021-12-11 19:53 | OP.CCLET_ITS ---
12/11/2021 Agus Almaguer [address] [place] [address] Re : Colonoscopy procedure for [facility] Dear Dr. Almaguer This procedure was performed on Saturday, December 11, 2021. My impressions and recommendations are as follows: Impressions : - Non-bleeding external and internal hemorrhoids. - Severe diverticulosis in the entire examined colon. There was no evidence of diverticular bleeding. - Four 1 to 2 mm polyps in the sigmoid colon, at the hepatic flexure and in the ascending colon, removed with a cold snare. Resected and retrieved. - A single bleeding colonic angiodysplastic lesion. Treated with a heater probe. Recommendations : - [facility]. - Resume regular diet today. - Continue present medications. - Await pathology results. - No repeat colonoscopy due to age. My findings are described in the full procedure note, which is enclosed. If I can be of further assistance, please feel free to contact me at . Sincerely, Eduardo Leach, 12/11/2021 7:52:07 PM This report has been signed electronically.
[2021-12-11] MEDS: 0.9% Normal Saline 1,000 ML 75 ML IV (21:12)
[2021-12-11] MEDS: Atorvastatin Calcium 40 MG Tablet PO (21:22)
[2021-12-12] VITALS (8 sets, daily range): BP systolic 97–114; BP diastolic 51–56; PULSE 60–80; RESP 18–20; TEMP 36.8–37.2; O2SAT 99–100
[2021-12-12] MEDS: Levothyroxine 125 MCG Tablet PO (06:34)
[2021-12-12 07:15] LABS: Absolute Neutrophil Count 3.2 X10^3/uL (2.0-7.7); Basophil# 0.03 X10^3/uL; Basophil% 0.6 % (0-1); Eosinophil# 0.21 X10^3/uL; Eosinophils% 3.9 % (0-5); Hematocrit 25.5 % (40-54); Hemoglobin 8.3 g/dL (13.0-16.5); Lymphocyte % 16.5 % (19-41); Mean Corp Hgb Conc 32.5 g/dL (32-36); Mean Corpuscular Hgb 33.1 pg (27.0-32.0); Mean Corpuscular Volume 101.6 fL (80-94); Mean Platelet Vol. 9.6 fl (6.2-12.0); Monocyte# 1.03 X10^3/uL; Monocyte% 18.9 % (0-10); NRBC Flagged by Analyzer 0 % (0-5); Neutrophil # 3.22 X10^3/uL (2.7-7.7); Neutrophil % 59.2 % (47-70); POSITIVE COUNT YES; POSITIVE MORPHOLOGY YES; Platelet Count 79 K/mm3 (150-450); RBC Distribution Width CV 19.1 % (11.6-14.6); Red Blood Count 2.51 M/mm3 (4.6-6.2); White Blood Count 5.4 K/mm3 (4.4-11.0)
[2021-12-12 07:16] LABS: Differential Indicated SCAN CRITERIA MET
[2021-12-12 07:30] LABS: Anisocytosis 2+; Atypical Lymphocyte 1+ %
[2021-12-12 07:51] LABS: Anion Gap 6 (5-15); BUN 56 mg/dL (7-18); BUN/Creat Ratio 47.5 RATIO (10-20); Chloride 121 mmol/L (98-107); Creatinine, Serum 1.18 mg/dL (0.70-1.30); EST Glomerular Filtration Rate 62 mL/min (>60); Est Glom Filt Rate - Afr Amer 75 mL/min (>60); Estimated Creatinine Clearance 48.41 ml/min; Glucose 106 mg/dL (74-106); Potassium 4.2 mmol/L (3.5-5.1); Sodium Level 147 mmol/L (136-145)
[2021-12-12] MEDS: 0.9% Normal Saline 1,000 ML 75 ML IV (10:00)
[2021-12-12] MEDS: Menthol/Lanolin/Calamine/Znox 113 GM Tube 1 APPLIC TOPICAL (10:02)
[2021-12-12] MEDS: Nystatin Powder 15gm Bottle 1 APPLIC TOPICAL (10:02)
[2021-12-12] MEDS: Loratadine 10 MG Tablet PO (10:04)
[2021-12-12] MEDS: Ascorbic Acid 500 MG Tablet PO (10:04)
[2021-12-12] MEDS: Allopurinol 100 MG Tablet PO (10:05)
[2021-12-12] MEDS: Cholecalciferol (VIT D3) 25 MCG TABLET (1,000 UNITS) PO (10:05)
--- NOTE | 2021-12-12 10:19 | PN.HOSP_ITS ---
Subjective Subjective Patient seen and examined. He has no complaints today. He does appear lethargic and confused. Review of systems is otherwise negative.He had colonoscopy yesterday which showed nonbleeding internal and internal hemorrhoids and severe diverticulosis with no evidence of diverticular bleeding and a single bleeding colonic angiodysplastic lesion which was treated with heater probe. He also had for 1 to 2 mm polyps which were removed. Objective Data Objective Data Vital Signs: Vital Signs Temp Pulse Resp BP Pulse Ox O2 Del Method 99 F 60 20 H 114/56 L 99 Room Air 12/12/21 07:57 12/12/21 07:57 12/12/21 07:57 12/12/21 07:57 12/12/21 07:57 12/12/21 07:57 Oxygen Delivery Method Room Air Weight: 206 lb 12.697 oz Body Mass Index (BMI) 28.0 Intake & Output: Intake and Output for Last 24 Hours 12/10/21 12/11/21 12/12/21 23:59 23:59 23:59 Intake Total 2750.75 / 2750.75 1420.00 / 1860.00 1714.25 / 1714.25 Balance 2750.75 / 2750.75 1420.00 / 1860.00 1714.25 / 1714.25 Lab / Micro Data Result Diagrams: 12/12/21 06:57 12/12/21 06:57 Labs: Laboratory Results - last 24 hr 12/12/21 06:57: WBC 5.4, RBC 2.51 L, Hgb 8.3 L, Hct 25.5 L, MCV 101.6 H, MCH 33.1 H, MCHC 32.5, RDW Std Deviation 71.0 H, RDW Coeff of Jesu 19.1 H, Plt Count 79 L, MPV 9.6, Immature Gran % (Auto) 0.900, Neut % (Auto) 59.2, Lymph % (Auto) 16.5 L, Stewart % (Auto) 18.9 H, Eos % (Auto) 3.9, Baso % (Auto) 0.6, Absolute Neuts (auto) 3.2, Absolute Lymphs (auto) 0.90, Nucleated RBC % 0, Atypical Lymphocytes 1+, Anisocytosis 2+ 12/12/21 06:57: Sodium 147 H, Potassium 4.2, Chloride 121 H, Carbon Dioxide 20.0 L, Anion Gap 6, BUN 56 H, Creatinine 1.18, Estim Creat Clear Calc 48.41, Est GFR (MDRD) Af Amer 75, Est GFR (MDRD) Non-Af 62, BUN/Creatinine Ratio 47.5 H, Glucose 106, Calcium 8.0 L Micro: Microbiology 12/11/21 15:40 Urine, Catheterized Urine Culture - Preliminary Culture exhibits no growth. 12/09/21 21:00 Stool Stool Occult Blood (DMITRY) - Final Occult Blood Positive Physical Exam Const alert, oriented x3 and no apparent distress HEENT head/scalp atraumatic, moist oral mucous membranes and oropharynx normal Head and Scalp: normocephalic Mouth: oral and palatal mucosa normal Eyes PERRL Neck no lymphadenopathy, supple and no JVD Resp normal respiratory effort, no retractions, no use of accessory muscles and clear to auscultation bilaterally Cardio regular rate, regular rhythm, S1 normal heart sound, S2 normal heart sound and no murmurs GI normal to inspection, nondistended, normoactive bowel sounds, soft to palpation, non-tender and non-distended Extremity normal to inspection, full ROM and no clubbing, cyanosis or edema Neuro oriented x3, CN's II-XII intact bilaterally, moves all extremities and no focal motor deficits Sensorium / Orientation: awake and alert Motor Exam: strength 5/5 throughout Psych affect normal Assessment & Plan Assessment/Plan (1) GI bleed: (2) Upper GI bleed: (3) Anemia: PLAN: Plan #Acute on chronic anemia due to GI bleed * had EGD yesterday which showed normal esophagus and a single bleeding angiodysplastic lesion in the stomach which was treated with a heater probe * colonoscopy showed nonbleeding internal and internal hemorrhoids and severe diverticulosis with no evidence of diverticular bleeding and a single bleeding colonic angiodysplastic lesion which was treated with heater probe.? He also had for 1 to 2 mm polyps which were removed. * on IV protonix 40mg bid * HB today is 8.3 today. 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 * resolved * #Hypernatremia: Na is 147. Likely due to IVF. Will dc IVF. #Hyperkalemia: resolved. K is 4.2. #CAD: s/p stents. * Lasix on hold due to CHEYANNE. metoprolol and lisinopril also held due to CHEYANNE. * aspirin and plavix also held due to GI bleed. * resume lisinopril as CHEYANNE has resolved. * #Debility due to acute on chronic anemia * Pt.OT on board. fall precautions * #Asymptomatic bacteriuria: * Urinalysis shows 1+ bacteria * Patient is asymptomatic. We will get urine culture. #Atrial fibrillation: rate controlled. metoprolol held as BP was soft. not on blood thinners DVT prophylaxis: SCDs Disposition: awaiting placement in TCU. Charges/Coding Visit Charges Inpatient E&M: 94537 Subs Hosp L2
[2021-12-12] MEDS: Furosemide 20 MG Tablet PO (11:14)
--- NOTE | 2021-12-12 11:50 | NURSING ---
Call from [facility] for patient to be discharged to TCU when medically ready. Dr. Mcmanus notified.
--- NOTE | 2021-12-12 12:20 | TREXTCAR_ITS ---
Diet Diet Order/Speech Therapy: 12/11/21 19:52 Diet: Regular - General Is pt able to select menu?: Yes Diet Comments: Except meds with sips Routine Orders/Code Status Enema Type: Fleetz Enema Frequency: Daily PRN Suppository Type: Dulcolax 10mg Suppository Frequency: Daily PRN O2 Frequency: PRN Keep PO Greater than or Equal to (%): 90 Wound(s) Bottom: Wound Type: Skin Tear R foot: Wound Type: Abrasion Bilateral lower extremities: Wound Type: Abrasion LEFT FOREARM: Wound Type: Skin Tear RONNIE BUTTOCKS: Wound Type: Abrasion Therapies Weight Bearing: Weight bearing as tolerated Physical Therapy: Eval and Treat Occupational Therapy: Eval and Treat Problem/Diagnosis (1) GI bleed: Status: Acute Code(s): K92.2 - Gastrointestinal hemorrhage, unspecified (2) Upper GI bleed: Status: Acute Code(s): K92.2 - Gastrointestinal hemorrhage, unspecified (3) Anemia: Status: Acute Code(s): D64.9 - Anemia, unspecified Plan #Acute on chronic anemia due to GI bleed * had EGD yesterday which showed normal esophagus and a single bleeding angiodysplastic lesion in the stomach which was treated with a heater probe * colonoscopy showed nonbleeding internal and internal hemorrhoids and severe diverticulosis with no evidence of diverticular bleeding and a single bleeding colonic angiodysplastic lesion which was treated with heater probe.? He also had for 1 to 2 mm polyps which were removed. * on IV protonix 40mg bid * HB today is 8.3 today. 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 * resolved * #Hypernatremia: Na is 147. Likely due to IVF. Will dc IVF. #Hyperkalemia: resolved. K is 4.2. #CAD: s/p stents. * Lasix on hold due to CHEYANNE. metoprolol and lisinopril also held due to CHEYANNE. * aspirin and plavix also held due to GI bleed. * resume lisinopril as CHEYANNE has resolved. * #Debility due to acute on chronic anemia * Pt.OT on board. fall precautions * #Asymptomatic bacteriuria: * Urinalysis shows 1+ bacteria * Patient is asymptomatic. We will get urine culture. #Atrial fibrillation: rate controlled. metoprolol held as BP was soft. not on blood thinners DVT prophylaxis: SCDs Disposition: awaiting placement in TCU. Allergies/Procedures Done in Hospital Allergies adhesive tape Allergy (Mild, Verified 08/20/21 14:32) RASH iodine Allergy (Mild, Verified 08/20/21 14:32) UNKNOWN Type of Care/Length of Stay Estimated LOS: Convalescent Care Less Than 30 days Type of Care Needed: Skilled Rehab Potential: Fair Prognosis: Fair Additional Orders/Day of Discharge Day of Discharge: 12/12/21 Dietary and Speech Recommendations Dietitian Recommendations/Changes: ADAT to Cardiac/Low Fiber diet when medically able. RD will discontinue EPHP supplement due to NPO status. Discharge Plan Admission Admit Date/Time: 12/09/21 22:05 Primary Reason for Your Visit: acute GI bleed Attending Provider: Abby Mcmanus Primary Care Provider: Agus Almaguer Consulting Providers: Delfino Allison ; Eduardo Leach ; Mathieu Young Instructions Patient Instructions: ED Upper GI Bleeding (Stable) Additional Instructions / Restrictions: resume aspirin and plavix on 12/16/2021 Discharge Orders/Prescriptions Prescriptions: Continued lisinopril 40 mg tablet 40 mg PO DAILY atorvastatin 40 mg tablet 40 mg PO DAILY aspirin [Adult Aspirin Regimen] 81 mg tablet,delayed release (DR/EC) 81 mg PO DAILY clopidogrel 75 mg tablet 75 mg PO DAILY levothyroxine [Euthyrox] 125 mcg tablet 125 mcg PO DAILY omega 5-pyx-ape-fish oil [Fish Oil] 60-90-500 mg capsule 1 cap PO DAILY metoprolol tartrate 25 mg tablet 12.5 mg PO BID ascorbic acid (vitamin C) 500 mg tablet 500 mg PO DAILY cholecalciferol (vitamin D3) 25 mcg (1,000 unit) tablet 25 mcg PO DAILY multivitamin Tablet 1 tab PO DAILY furosemide 40 mg tablet 20 mg PO DAILY allopurinol 300 mg tablet 150 mg PO DAILY loratadine [Claritin] 10 mg Tablet 10 mg PO DAILY Probiotic 3 billion cell Capsule 3,000 mmu cells PO DAILY Rx Instructions: administer with a meal Referrals / Follow Up: Agus Almaguer MD [Primary Care Provider] - Within 2 Weeks Friend,Eduardo, DO [Med Staff - Active Staff] - Within 2 Weeks Disposition Disposition (needs filled in before D/C Order can be placed): Longterm Facility
--- NOTE | 2021-12-12 12:22 | DS.PCM_ITS ---
Providers Date of Admission: 12/09/21 Date of Discharge: 12/12/21 Primary Care Physician: Dr. Agus Almaguer MD Consultations 12/09/21 23:01 Consult: Cardiology Routine Consulting Provider: Delfino Allison Reason for Consult: anesthesia risk for egd/colonoscopy EMERGENT Consult: No Notified: Yes Date Notified: 12/09/21 Time Notified: 22:43 Method of Notification: Text Method of Consult:: In-Person Consult: Gastroenterology Routine Consulting Provider: Eduardo Leach Reason for Consult: ABLA EMERGENT Consult: No Notified: Yes Date Notified: 12/09/21 Time Notified: 22:18 Method of Notification: ED Physician Initiated Reason For Visit: ABLA Diagnosis Discharge Diagnosis (1) GI bleed: Status: Acute Code(s): K92.2 - Gastrointestinal hemorrhage, unspecified (2) Upper GI bleed: Status: Acute Code(s): K92.2 - Gastrointestinal hemorrhage, unspecified (3) Anemia: Status: Acute Code(s): D64.9 - Anemia, unspecified Plan #Acute on chronic anemia due to GI bleed * had EGD yesterday which showed normal esophagus and a single bleeding angiodysplastic lesion in the stomach which was treated with a heater probe * colonoscopy showed nonbleeding internal and internal hemorrhoids and severe diverticulosis with no evidence of diverticular bleeding and a single bleeding colonic angiodysplastic lesion which was treated with heater probe.? He also had for 1 to 2 mm polyps which were removed. * on IV protonix 40mg bid * HB today is 8.3 today. 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 * resolved * #Hypernatremia: Na is 147. Likely due to IVF. Will dc IVF. #Hyperkalemia: resolved. K is 4.2. #CAD: s/p stents. * Lasix on hold due to CHEYANNE. metoprolol and lisinopril also held due to CHEYANNE. * aspirin and plavix also held due to GI bleed. * resume lisinopril as CHEYANNE has resolved. * #Debility due to acute on chronic anemia * Pt.OT on board. fall precautions * #Asymptomatic bacteriuria: * Urinalysis shows 1+ bacteria * Patient is asymptomatic. We will get urine culture. #Atrial fibrillation: rate controlled. metoprolol held as BP was soft. not on blood thinners DVT prophylaxis: SCDs Disposition: awaiting placement in TCU. Medications at Discharge Home Medications aspirin 81 mg tablet,delayed release (Adult Aspirin Regimen) 81 mg PO DAILY 01/23/21 atorvastatin 40 mg tablet 40 mg PO DAILY 01/23/21 clopidogrel 75 mg tablet 75 mg PO DAILY 01/23/21 levothyroxine 125 mcg tablet (Euthyrox) 125 mcg PO DAILY 01/23/21 lisinopril 40 mg tablet 40 mg PO DAILY 01/23/21 ascorbic acid (vitamin C) 500 mg tablet 500 mg PO DAILY 07/07/21 cholecalciferol (vitamin D3) 25 mcg (1,000 unit) tablet 25 mcg PO DAILY 07/07/21 multivitamin 1 tab PO DAILY 07/07/21 furosemide 40 mg tablet 20 mg PO DAILY 07/09/21 metoprolol tartrate 25 mg tablet 12.5 mg PO BID 07/09/21 omega 8-piw-ylm-fish oil 60 mg-90 mg-500 mg capsule (Fish Oil) 1 cap PO DAILY 07/09/21 allopurinol 300 mg tablet 150 mg PO DAILY 08/20/21 lactobacillus combination no.4 3 billion cell capsule (Probiotic) 3,000 mmu cells PO DAILY 12/09/21 loratadine 10 mg tablet (Claritin) 10 mg PO DAILY 12/09/21 Hospital Course Operations None Procedures EGD Summary of Care Provided Minutes Spent on Discharge: 45 Hospital Course: Patient is an 86 y/o male with a PMH as outlined who was admitted via the ED with a complaint of 2-3 week history of progressively worsening fatigue. weakness progressed to the point where he couldnt get out of bed. Labs in 2021 showd Hb of 8.0. Stool for occult blood done was positive. hb on admission was 8. He was admitted to be managed for acute on chronic anemia due to GI bleed. Gastroenterology was consulted. Patient was started on IV PPI. Metoprolol was held due to soft blood pressures. Aspirin and Plavix were held. He had EGD which showed normal esophagus and a single bleeding angiodysplastic lesion in the stomach which was treated with heater probe. Colonoscopy showed nonbleeding internal and external hemorrhoids and severe diverticulosis with no evidence of diverticular bleeding and a single colonic angiodysplastic lesion which was bleeding was treated with heater probe's. He also had for 1 to 2 mm polyps removed. Of note he was transfused with 2 units of packed red blood cells during this admission. Patient remained stable and did well. By gastroenterology he is to resume his aspirin and Plavix on 12/16/2021. He is follow-up with his primary care doctor and gastroenterology within 1 to 2 weeks. He was discharged to the transitional care unit on 12/12/2021. Patient seen and examined prior to discharge. He had no active complaints and had an uneventful night. Labs and vitals reviewed. Home medication reviewed and reconciled. Physical Exam Const alert, oriented x3 and no apparent distress General Appearance: cooperative Orientation / Consciousness: awake Exam Limitations: no limitations HEENT normocephalic, head/scalp atraumatic, hearing grossly normal bilaterally, moist oral mucous membranes and oropharynx normal Eyes PERRL Neck no lymphadenopathy, supple and no JVD Resp normal respiratory effort, no retractions, no use of accessory muscles and clear to auscultation bilaterally Cardio regular rate, regular rhythm, S1 normal heart sound, S2 normal heart sound and no murmurs GI normal to inspection, nondistended, normoactive bowel sounds, soft to palpation, non-tender and non-distended Extremity normal to inspection, full ROM and no clubbing, cyanosis or edema Skin no rashes or lesions noted Neuro oriented x3, CN's II-XII intact bilaterally, moves all extremities and no focal motor deficits Sensorium / Orientation: awake and alert Motor Exam: strength 5/5 throughout Psych affect normal Weight / BMI Weight Weight: 206 lb 12.697 oz Body Mass Index (BMI) 28.0 ABG / Lab / Microbiology Data Result Diagrams: 12/12/21 06:57 12/12/21 06:57 Laboratory: Laboratory Results - last 24 hr 12/12/21 06:57: WBC 5.4, RBC 2.51 L, Hgb 8.3 L, Hct 25.5 L, MCV 101.6 H, MCH 33.1 H, MCHC 32.5, RDW Std Deviation 71.0 H, RDW Coeff of Jesu 19.1 H, Plt Count 79 L, MPV 9.6, Immature Gran % (Auto) 0.900, Neut % (Auto) 59.2, Lymph % (Auto) 16.5 L, Candler % (Auto) 18.9 H, Eos % (Auto) 3.9, Baso % (Auto) 0.6, Absolute Neuts (auto) 3.2, Absolute Lymphs (auto) 0.90, Nucleated RBC % 0, Atypical Lymphocytes 1+, Anisocytosis 2+ 12/12/21 06:57: Sodium 147 H, Potassium 4.2, Chloride 121 H, Carbon Dioxide 20.0 L, Anion Gap 6, BUN 56 H, Creatinine 1.18, Estim Creat Clear Calc 48.41, Est GFR (MDRD) Af Amer 75, Est GFR (MDRD) Non-Af 62, BUN/Creatinine Ratio 47.5 H, Glucose 106, Calcium 8.0 L Microbiology: Microbiology 12/11/21 15:40 Urine, Catheterized Urine Culture - Preliminary Culture exhibits no growth. 12/09/21 21:00 Stool Stool Occult Blood (DMITRY) - Final Occult Blood Positive D/C Instructions Discharge Diet: Low fat / Low cholesterol Discharge Activity: Return to Normal Activity Call your doctor if you observe: Fever of 101 or Higher, Shortness of breath, Dizziness, Swelling in the ankles and Increased palpitations (irregular heartbeat) Meaningful Use Info Meaningful Use Diagnoses (Choose all that apply): None applicable Discharge Plan Admission Admit Date/Time: 12/09/21 22:05 Primary Reason for Your Visit: acute GI bleed Attending Provider: Abby Mcmanus Primary Care Provider: Agus Almaguer Consulting Providers: Delfino Allison ; Eduardo Leach ; Mathieu Young Instructions Patient Instructions: ED Upper GI Bleeding (Stable) Additional Instructions / Restrictions: resume aspirin and plavix on 12/16/2021 Discharge Orders/Prescriptions Prescriptions: Continued lisinopril 40 mg tablet 40 mg PO DAILY atorvastatin 40 mg tablet 40 mg PO DAILY aspirin [Adult Aspirin Regimen] 81 mg tablet,delayed release (DR/EC) 81 mg PO DAILY clopidogrel 75 mg tablet 75 mg PO DAILY levothyroxine [Euthyrox] 125 mcg tablet 125 mcg PO DAILY omega 2-cok-xwr-fish oil [Fish Oil] 60-90-500 mg capsule 1 cap PO DAILY metoprolol tartrate 25 mg tablet 12.5 mg PO BID ascorbic acid (vitamin C) 500 mg tablet 500 mg PO DAILY cholecalciferol (vitamin D3) 25 mcg (1,000 unit) tablet 25 mcg PO DAILY multivitamin Tablet 1 tab PO DAILY furosemide 40 mg tablet 20 mg PO DAILY allopurinol 300 mg tablet 150 mg PO DAILY loratadine [Claritin] 10 mg Tablet 10 mg PO DAILY Probiotic 3 billion cell Capsule 3,000 mmu cells PO DAILY Rx Instructions: administer with a meal Referrals / Follow Up: Agus Almaguer MD [Primary Care Provider] - Within 2 Weeks Eduardo Leach DO [Med Staff - Active Staff] - Within 2 Weeks Disposition Disposition (needs filled in before D/C Order can be placed): [facility] Charges/Coding Visit Charges Inpatient E&M: 55953 Disch Hosp
== END 2021-12-12 16:00 | disposition skilled nursing facility (03) | DRG 378 ==
LOC: ED 22:10 → MS3 22:49
PROVIDERS: Anesthesiology; Internal Medicine Gastroenterology; Admitting Provider Hospitalist; Emergency Provider Emergency Medicine; PCP Family Medicine; Visit Provider Student in an Organized Health Care Education/Training Program
PROC: 0DJ08ZZ Inspection of Upper Intestinal Tract, Via Natural or Artificial Opening Endoscopic (ICD-10-PCS; CPT 43235; principal; 2021-12-10 12:40)
PROC: 0DJD8ZZ Inspection of Lower Intestinal Tract, Via Natural or Artificial Opening Endoscopic (ICD-10-PCS; CPT 45378; principal; 2021-12-11 16:55)
DX: K31.811 Angiodysplasia of stomach and duodenum with bleeding (principal); E87.0 Hyperosmolality and hypernatremia; N17.9 Acute kidney failure, unspecified; D62 Acute posthemorrhagic anemia; I27.20 Pulmonary hypertension, unspecified; I48.91 Unspecified atrial fibrillation; N18.2 Chronic kidney disease, stage 2 (mild); I12.9 Hypertensive chronic kidney disease with stage 1 through stage 4 chronic kidney disease, or unspecified chronic kidney disease; E78.00 Pure hypercholesterolemia, unspecified; I25.10 Atherosclerotic heart disease of native coronary artery without angina pectoris; E78.5 Hyperlipidemia, unspecified; K63.5 Polyp of colon; E87.5 Hyperkalemia; K64.4 Residual hemorrhoidal skin tags; K64.8 Other hemorrhoids; K57.30 Diverticulosis of large intestine without perforation or abscess without bleeding; R53.81 Other malaise; Z79.82 Long term (current) use of aspirin; R82.71 Bacteriuria; Z90.49 Acquired absence of other specified parts of digestive tract; Z79.02 Long term (current) use of antithrombotics/antiplatelets
CPT/HCPCS: 36415; 71045; 80048; 81001; 82274; 84443; 85014; 85018; 85025; 85610; 85730; 86850; 86900; 86901; 86920; 86921; 86922; 87086; 87426; 88305; 93005; 97110; 97162; 97166; 97530; 97535; 97802; 99285; J7030; J7040; J7120; P9016; A4216; J2405

== ENCOUNTER 2021-12-12 16:03 | Inpatient (IN) | payer MEDICARE, SELFPAY ==
[2021-12-12 16:09] VITALS: BP 92/52; PULSE 68; RESP 16; RESP 18; TEMP 37; O2SAT 98; BMI 29.1
[2021-12-12 18:36] VITALS: BP 92/52; PULSE 68
[2021-12-12] MEDS: Metoprolol Tartrate 25 MG Tablet 12.5 MG PO (18:36)
[2021-12-12] MEDS: Atorvastatin Calcium 40 MG Tablet PO (20:00)
--- NOTE | 2021-12-12 21:30 | HP.PCM_ITS ---
HPI - General General Date of Admission: 12/12/21 Date of Service: 12/14/21 Chief Complaint: Here for rehab. HPI Narrative 12/09/2021 ASIA WILSON, is a 86 Male who presents to [facility] Emergency Department with weakness. Weakness x 2-3 weeks, in bed x 5 days. No energy to do anything, decreased appetite, decreased oral intake. Low hemoglobin. Hemoglobin 8.0, dropping over time. BUN 72, Creatinine 2.06, K 5.5 Urinalysis negative. IV fluids given, stool guaiac positive. 12/09/2021 Admit to Hospital. IV Fluids, Serial H&H, hold antiplatelet medications, Protonix, GI consult, for upper GI bleed. IV Fluids, Hold Lasix, Hold Lisinopril, decrease Allopurinol for acute kidney injury. Hold Metoprolol for low blood pressure. PT/OT for debility. 12/10/2021 Dr. Leach EGD single bleeding angiodysplastic lesion treated with heater probe. 12/10/2021 Hemoglobin 7.1, transfuse 2 units PRBC, IV protonix, hold dual antiplatelet therapy for upper GI bleed. Creatinine improved to 1.8, gentle IV fluids for acute kidney injury. Hold Lasix, Metoprolol, Lisinopril for acute kidney injury. Urinalysis 1+ bacteremia, send urine culture. 12/11/2021 Hemoglobin 9.4. Creatinine 1.78. K 5.2, Treat with Kayexalate 15gm po x 1 dose. 12/11/2021 Dr. Leach colonoscopy hemorrhoids, severe diverticulosis, 4 small po lyps removed, single bleeding colonic angiodysplastic lesion treateed with heater probe. 12/12/2021 Lethargic, confused. Hemoglobin 8.3. Creatinine 1.18. 12/12/2021 Admit to TCU with debility, here for rehabilitation, strengthening, prior to discharge home with . [facility] Medical History Arthritis Atherosclerotic heart disease of [place] coronary artery without angina pectoris Atrial flutter Encounter for screening for COVID-19 Essential hypertension Heart disease Hypertension Preoperative cardiovascular examination Presence of stent in coronary artery (~01/13/01) Pure hypercholesterolemia Rheumatic fever Shortness of breath URI (upper respiratory infection) Home Medications aspirin 81 mg tablet,delayed release (Adult Aspirin Regimen) 81 mg PO DAILY Heart health 01/23/21 [History Last Taken Unknown] atorvastatin 40 mg tablet 40 mg PO DAILY Cholestrol 01/23/21 [History Last Taken Unknown] clopidogrel 75 mg tablet 75 mg PO DAILY Blood thinner 01/23/21 [History Last Taken Unknown] levothyroxine 125 mcg tablet (Euthyrox) 125 mcg PO DAILY Thyroid 01/23/21 [History Last Taken Unknown] lisinopril 40 mg tablet 40 mg PO DAILY BP 01/23/21 [History Last Taken Unknown] ascorbic acid (vitamin C) 500 mg tablet 500 mg PO DAILY Supplement 07/07/21 [History Last Taken Unknown] cholecalciferol (vitamin D3) 25 mcg (1,000 unit) tablet 25 mcg PO DAILY Supplement 07/07/21 [History Last Taken Unknown] multivitamin 1 tab PO DAILY Supplement 07/07/21 [History Last Taken Unknown] furosemide 40 mg tablet 20 mg PO DAILY Fluid retention 07/09/21 [History Last Taken Unknown] metoprolol tartrate 25 mg tablet 12.5 mg PO BID BP 07/09/21 [History Last Taken Unknown] omega 6-yju-xol-fish oil 60 mg-90 mg-500 mg capsule (Fish Oil) 1 cap PO DAILY Supplement 07/09/21 [History Last Taken Unknown] allopurinol 300 mg tablet 150 mg PO DAILY Gout 08/20/21 [History Last Taken Unknown] lactobacillus combination no.4 3 billion cell capsule (Probiotic) 3,000 mmu cells PO DAILY Supplement 12/09/21 [History Last Taken Unknown] loratadine 10 mg tablet (Claritin) 10 mg PO DAILY Allergies 12/09/21 [History Last Taken Unknown] Allergy/AdvReac Type Severity Reaction Status Date / Time adhesive tape Allergy Mild RASH Verified 08/20/21 14:32 iodine Allergy Mild UNKNOWN Verified 08/20/21 14:32 Family History Father Myocardial infarction, Onset Age: 46 Surgical History History of carpal tunnel release History of cholecystectomy Presence of coronary angioplasty implant and graft (~01/13/01) Social History (Updated 10/22/22 @ 21:[address] Manas Shea MD) household members: spouse Smoking Status: Never smoker alcohol intake: never substance use type: does not use caffeine: Yes Type: coffee Number of servings: 1 ROS Constitutional Constitutional: Denies chills, fever(s) or weight gain ENT HEENT: Denies headache(s), nasal congestion or nasal discharge Cardiovascular Cardiovascular: Denies chest pain or palpitations Respiratory/Chest Respiratory/Chest: Denies cough, excessive phlegm production or shortness of breath with exertion Gastrointestinal Gastrointestinal: Denies abdominal pain, nausea or vomiting Genitourinary Genitourinary: Denies dysuria Musculoskeletal Musculoskeletal: Denies joint pain or joint swelling Integumentary Integumentary: Denies rash or wounds Neurologic Neurologic: Denies focal weakness, numbness or tingling Psychiatric Psychiatric: Denies anxiety, auditory hallucinations, depression, homicidal ideation or suicidal ideation Vital Signs Vital Signs Vital Signs: 12/12/21 16:09 12/12/21 16:09 12/12/21 18:36 Temperature 98.6 F Temperature Source Temporal Pulse Rate 68 68 68 Pulse Rhythm Regular Pulse Strength Normal (2+) Respiratory Rate 16 18 Respiratory Effort Normal Non-Labored Respiratory Depth Normal Respiratory Pattern Normal Blood Pressure 92/52 L 92/52 L Blood Pressure Mean 65 Blood Pressure Source Monitor Blood Pressure Position Semi-Fowlers Blood Pressure Location Right Forearm Pulse Ox 98 98 Oxygen Delivery Method Room Air Room Air Weight Weight: 97.636 kg Body Mass Index (BMI) 29.1 Physical Exam Const alert General Appearance: cooperative HEENT normocephalic Eyes PERRL and EOMs intact bilaterally Neck supple, no JVD and no carotid bruits Resp normal respiratory effort, normal air movement and clear to auscultation bilaterally Cardio regular rate and regular rhythm GI normal to inspection, nondistended, normoactive bowel sounds, non-tender and non-distended Extremity normal capillary refill General Extremity: Negative for edema Skin no rashes or lesions noted General Skin Exam: no breakdown Psych affect normal Appearance: appropriate Results Lab / Micro Data Result Diagrams: 12/13/21 07:10 12/13/21 07:10 Assessment & Plan Assessment/Plan (1) Debility: (2) Weakness: (3) Acute anemia: (4) Gastrointestinal bleed: (5) Acute kidney injury: (6) Hyperkalemia: (7) Coronary artery disease: (8) Hypothyroidism: (9) Edema: (10) Gout: (11) Allergic rhinitis: PLAN: Plan 86 year old male with below past medical history hospitalized for weakness secondary to acute anemia for gastrointestinal bleed, complicated by acute kidney injury, hyperkalemia, encephalopathy, admitted to TCU with debility, here for rehabilitation, strengthening, prior to discharge home with . * Debility - PT/OT. * Dysphagia - ST. * Pain - Tylenol 1000mg q6h prn pain (1-10). * Bowel - senna/colace 1 tablet bid, MOM 30ml po daily prn, Dulcolax 10mg pr daily prn. * Adult immunization - Administer pneumonia vaccine, covid19 vaccine, flu vaccine as appropriate. * DVT prophylaxis - Hold, GI bleed. * Gout - Allopurinol 300mg daily. * Iron deficiency anemia - Ferrex 150mg daily, Vitamin C 500mg daily. * Coronary artery disease - Metoprolol 12.5mg bid, aspiri 81mg daily. * Hyperlipidemia - Atorvastatin 40mg qhs. * Edema - Furosemide 20mg daily. * Hypothyroidism - Levothyroxine 125mcg daily. * Allergic rhinitis - Loratadine 10mg q48.
[2021-12-13] MEDS: Levothyroxine 125 MCG Tablet PO (06:13)
[2021-12-13] MEDS: Furosemide 20 MG Tablet PO (06:13)
[2021-12-13 06:16] VITALS: BP 116/65; PULSE 63
[2021-12-13] MEDS: Metoprolol Tartrate 25 MG Tablet 12.5 MG PO (06:16)
[2021-12-13] MEDS: Senna/Docusate Sodium 1 Tablet PO ×2 (06:17→16:50)
--- NOTE | 2021-12-13 06:25 | NURSING ---
SL in LFA not flushing this morning. SL discontinued. Catheter intact; site free of bleeding, drainage, redness. L upper extremity does have 1+ pitting edema. Pt tolerated well. RN aware.
[2021-12-13 07:29] LABS: Absolute Lymphocyte Count 1.06 X10^3/uL (0.83-4.51); Absolute Neutrophil Count 3.3 X10^3/uL (2.0-7.7); Basophil# 0.03 X10^3/uL; Basophil% 0.5 % (0-1); Eosinophil# 0.13 X10^3/uL; Eosinophils% 2.4 % (0-5); Hematocrit 28.8 % (40-54); Lymphocyte # 1.06 X10^3/ul (0.83-4.51); Lymphocyte % 19.4 % (19-41); Mean Corp Hgb Conc 31.3 g/dL (32-36); Mean Corpuscular Hgb 31.8 pg (27.0-32.0); Mean Corpuscular Volume 101.8 fL (80-94); Mean Platelet Vol. 10.8 fl (6.2-12.0); Monocyte# 0.87 X10^3/uL; Monocyte% 15.9 % (0-10); NRBC Flagged by Analyzer 0 % (0-5); Neutrophil # 3.33 X10^3/uL (2.7-7.7); Neutrophil % 60.9 % (47-70); POSITIVE COUNT YES; POSITIVE MORPHOLOGY YES; Platelet Count 76 K/mm3 (150-450); RBC Distribution Width CV 18.5 % (11.6-14.6); RBC Distribution Width SD 69.3 fl (35.1-43.9); Red Blood Count 2.83 M/mm3 (4.6-6.2); White Blood Count 5.5 K/mm3 (4.4-11.0)
[2021-12-13 07:36] LABS: Differential Indicated SCAN CRITERIA MET
[2021-12-13 07:57] LABS: Anion Gap 5 (5-15); BUN 48 mg/dL (7-18); BUN/Creat Ratio 36.9 RATIO (10-20); Chloride 116 mmol/L (98-107); EST Glomerular Filtration Rate 55 mL/min (>60); Est Glom Filt Rate - Afr Amer 67 mL/min (>60); Estimated Creatinine Clearance 43.94 ml/min; Glucose 109 mg/dL (74-106); Potassium 4.8 mmol/L (3.5-5.1); Sodium Level 142 mmol/L (136-145)
[2021-12-13 08:32] LABS: Differential Comment SCANNED; Reactive Lymphocyte 1+
[2021-12-13 08:33] LABS: Anisocytosis 2+; Macrocytosis 1+; Microcytosis 1+
[2021-12-13] MEDS: Allopurinol 300 MG Tablet 150 MG PO (08:43)
[2021-12-13] MEDS: Iron Polysaccharide Complex 150 MG CAPSULE PO (08:44)
[2021-12-13] MEDS: Ascorbic Acid 500 MG Tablet PO (08:44)
[2021-12-13] MEDS: Tuberculin,Purif.prot.deriv. 50 TU/ML Vial 0.1 ML ID (09:11)
[2021-12-13 14:00] VITALS: BP 103/38; PULSE 84; RESP 14; TEMP 37.4; O2SAT 95
[2021-12-13 16:53] VITALS: BP 100/45; PULSE 69
[2021-12-13 20:20] VITALS: PULSE 65; RESP 18; O2SAT 99
[2021-12-13] MEDS: Atorvastatin Calcium 40 MG Tablet PO (20:27)
[2021-12-14 06:29] VITALS: BP 121/49; PULSE 67
[2021-12-14] MEDS: Levothyroxine 125 MCG Tablet PO (06:29)
[2021-12-14] MEDS: Furosemide 20 MG Tablet PO (06:29)
[2021-12-14] MEDS: Senna/Docusate Sodium 1 Tablet PO ×2 (06:29→17:48)
[2021-12-14] MEDS: Loratadine 10 MG Tablet PO (06:30)
[2021-12-14] MEDS: Ascorbic Acid 500 MG Tablet PO (09:03)
[2021-12-14] MEDS: Iron Polysaccharide Complex 150 MG CAPSULE PO (09:03)
[2021-12-14] MEDS: Allopurinol 300 MG Tablet 150 MG PO (09:04)
--- NOTE | 2021-12-14 09:38 | CASEMGMT ---
Social Work Met with patient to complete initial assessment. Introduced self and role. Verified contacts. Discussed code status and MOLST form. Pt wishes to be DNR-CCA, WITH intubation. DNR and MOLST form signed and placed in Dr. folder. Nursing notified. Educated to [facility] [place] insurance with NRD 12/14 and continued stay is not guaranteed. Pts goal is to return home with whom assists with ADLs and IADLs. SW to continue to follow for DC planning. Samreen Joseph, SEXUAL HEALTH PHYSICIAN CRIME SCENE SPECIALIST
--- NOTE | 2021-12-14 10:19 | CASEMGMT ---
Social Work visited pt shortly after SW assessment and did not want pt to be a DNR-CC. SW spoke with pt and , educated to all code status options and emphasized it is pt's choice. Pt stated he will do what his 's says and stay a full code. DNR form and MOLST shredded. Updated nursing. Samreen Joseph, CURATOR H[employer]ICULTURAL MUSEUM RECREATION PROGRAMMER
--- NOTE | 2021-12-14 10:35 | NURSING ---
Learning Manager Note; Activity Asst: completed
[2021-12-14 13:00] VITALS: PULSE 69; RESP 18; O2SAT 93
[2021-12-14 14:00] VITALS: BP 97/57; PULSE 64; RESP 20; TEMP 36.8; O2SAT 98
[2021-12-14] MEDS: Nystatin Powder 15gm Bottle 1 APPLIC TOPICAL (17:42)
[2021-12-14] MEDS: Ensure Plus High Protein 120 ML LIQUID PO (17:42)
[2021-12-14 17:48] VITALS: BP 102/55; PULSE 66
[2021-12-14] MEDS: Atorvastatin Calcium 40 MG Tablet PO (21:48)
[2021-12-15 06:28] VITALS: BP 112/50; PULSE 71
[2021-12-15] MEDS: Levothyroxine 125 MCG Tablet PO (06:28)
[2021-12-15] MEDS: Furosemide 20 MG Tablet PO (06:28)
[2021-12-15] MEDS: Metoprolol Tartrate 25 MG Tablet 12.5 MG PO (06:28)
[2021-12-15] MEDS: Senna/Docusate Sodium 1 Tablet PO ×2 (06:28→18:27)
[2021-12-15] MEDS: Nystatin Powder 15gm Bottle 1 APPLIC TOPICAL ×2 (06:30→18:25)
[2021-12-15] MEDS: Menthol/Lanolin/Calamine/Znox 113 GM Tube 1 APPLIC TOPICAL ×2 (06:30→18:25)
[2021-12-15] MEDS: Bisacodyl 10 MG Suppository RC (06:46)
[2021-12-15] MEDS: Magnesium Hydroxide 30 ML UDC PO (06:46)
[2021-12-15] MEDS: Allopurinol 300 MG Tablet 150 MG PO (08:09)
[2021-12-15] MEDS: Iron Polysaccharide Complex 150 MG CAPSULE PO (08:09)
[2021-12-15] MEDS: Ascorbic Acid 500 MG Tablet PO (08:10)
[2021-12-15 13:30] VITALS: PULSE 64; RESP 18; O2SAT 94
[2021-12-15] MEDS: Ensure Plus High Protein 120 ML LIQUID PO ×3 (13:49→21:50)
[2021-12-15 13:54] VITALS: BP 101/42; PULSE 69; RESP 16; TEMP 37.1; O2SAT 98
[2021-12-15 18:28] VITALS: BP 106/40; PULSE 82
[2021-12-15] MEDS: Atorvastatin Calcium 40 MG Tablet PO (21:50)
[2021-12-16] MEDS: Senna/Docusate Sodium 1 Tablet PO ×2 (05:07→17:19)
[2021-12-16] MEDS: Levothyroxine 125 MCG Tablet PO (05:07)
[2021-12-16] MEDS: Loratadine 10 MG Tablet PO (05:07)
[2021-12-16] MEDS: Ensure Plus High Protein 120 ML LIQUID PO ×4 (05:07→20:40)
[2021-12-16] MEDS: Furosemide 20 MG Tablet PO (05:09)
[2021-12-16] MEDS: Nystatin Powder 15gm Bottle 1 APPLIC TOPICAL ×2 (05:09→17:19)
[2021-12-16] MEDS: Menthol/Lanolin/Calamine/Znox 113 GM Tube 1 APPLIC TOPICAL ×2 (05:09→17:19)
[2021-12-16 05:13] VITALS: BP 97/43; PULSE 65
--- NOTE | 2021-12-16 05:14 | NURSING ---
Addendum entered by Audrey Sims 12/16/21 06:53: Rechecked blood pressure. Manual reading at 99/41. Message left for Dr. Shea. Original Note: Patient's blood pressure 97/43, HR 65. Lopressor 12.5 held at this time. Will recheck blood pressure again.
[2021-12-16 06:46] VITALS: BP 99/41; PULSE 68
[2021-12-16] MEDS: Aspirin E.C. 81 MG Tablet PO (08:24)
[2021-12-16] MEDS: Allopurinol 300 MG Tablet 150 MG PO (08:24)
[2021-12-16] MEDS: Iron Polysaccharide Complex 150 MG CAPSULE PO (08:25)
[2021-12-16] MEDS: Ascorbic Acid 500 MG Tablet PO (08:25)
[2021-12-16] MEDS: 0.9% Saline Lock 10 ML Syringe IV ×4 (08:41→17:23)
[2021-12-16 10:00] VITALS: O2SAT 98
--- NOTE | 2021-12-16 10:05 | RAD_ITS ---
STUDY: X-RAY CHEST REASON FOR EXAM: Male, 86 years old. elevated temp, tachypnea TECHNIQUE: PA or AP. Lateral. COMPARISON: None. FINDINGS: Patchy right lower lobe infiltrate. Blunting the lateral costophrenic sulci bilaterally consistent pleural effusion versus pleural reaction Normal size heart. Normal mediastinum and tito. Normal visualized pulmonary arteries. Normal visualized aortic arch and descending thoracic aorta. Moderate degenerative change and diffuse spondylosis mid and lower thoracic spine. Normal visualized ribs, clavicles, and shoulders. There is no demonstrated abnormality of the visualized soft tissue structures of the upper abdomen. RAD/Chest PA and Lateral IMPRESSION: Patchy right lower lobe infiltrate. Small bilateral pleural effusions versus pleural reaction lateral costophrenic sulci. Electronically Signed: Adiel Caballero MD, AGUSTIN at 11:35 EDT ,
[2021-12-16 10:43] LABS: Bacteria 0 SEEN /hpf (None Seen); Mucous, Urine 0 SEEN /hpf (<or=2+); Red Blood Cells-Urine 0 SEEN /hpf (0-5); Squamous Epithelial Cells - UA 0 SEEN /hpf (0-5)
[2021-12-16 10:53] LABS: Color, Urine Yellow (Yellow); Glucose, Dipstick Normal (Normal); Ketone-Dipstick Negative (Negative); Leukocyte Esterase-Dipstick 25 /ul (Negative); Nitrite-Dipstick Negative (Negative); Occult Blood-Urine Negative /ul (Negative); Protein-Dipstick Negative (Negative); Specific Gravity, Urine 1.015 (1.002-1.030); Urine Bilirubin Dipstick Negative (Negative); Urine Clarity Sl. Cloudy (Clear); Urine Urobilinogen Normal (Normal)
--- NOTE | 2021-12-16 10:55 | RAD_ITS ---
STUDY: X-RAY - ABDOMEN/PELVIS REASON FOR EXAM: Male, 86 years old. elevated temp, tachypnea, hypotension -- recent GI bleed TECHNIQUE: 4 views including upright chest COMPARISON: None. FINDINGS: Mild bibasilar fibrosis. Small bilateral pleural effusion versus pleural reaction lateral costophrenic sulci. There is moderate small and large bowel ileus. Distal colonic obstruction less likely. Surgical clips right upper quadrant consistent with prior cholecystectomy. There is no demonstrated free abdominal air. The visualized liver, spleen and kidneys are grossly normal in size and morphology. Normal soft tissue structures. Severe degenerative disc disease throughout the lumbar spine RAD/Abdomen Single View IMPRESSION: Moderate diffuse ileus. Mild bibasilar fibrosis. Small bilateral pleural effusions versus pleural reaction lateral costophrenic sulci. Degenerative changes lumbar spine. Electronically Signed: Adiel Caballero MD, AGUSTIN at 11:35 EDT ,
[2021-12-16 11:03] LABS: White Blood Cells 0-5 SEEN /hpf (0-5)
[2021-12-16] MEDS: Acetaminophen 500 MG Tablet 1000 MG PO (11:17)
--- NOTE | 2021-12-16 11:17 | CASEMGMT ---
Social Work IDT met with patient, and dtr for care plan meeting. Discussed patient's progress in PT/OT/ST/SN. Educated to [facility] insurance with NRD 12/25 with EDC 12/29. Pts goal is to return home with . assisted with IADLs prior. However, uses FWW and cannot physically assist. ST evaled and identified cognitive impairments. stated pt would benefit from double handled cup and built-up utensils. Nursing stated pt having medical decline and interventions are in place. SW broached topic if pt cannot return home, what is an alternative DC plan. states she will hire any help pt needs. SW provided resources for SPORTS SPECIALIST. stated she will make a decision closer to NRD to determine DC date. SW to continue to follow. Samreen Joseph ,CODE ENFORCEMENT OFFICER ENVIRONMENTAL MANAGEMENT SPECIALIST
[2021-12-16 11:18] LABS: Absolute Lymphocyte Count 0.91 X10^3/uL (0.83-4.51); Absolute Neutrophil Count 3.7 X10^3/uL (2.0-7.7); Basophil# 0.03 X10^3/uL; Basophil% 0.5 % (0-1); Eosinophil# 0.11 X10^3/uL; Eosinophils% 1.8 % (0-5); Hemoglobin 8.1 g/dL (13.0-16.5); Lymphocyte # 0.91 X10^3/ul (0.83-4.51); Lymphocyte % 15.2 % (19-41); Mean Corp Hgb Conc 31.2 g/dL (32-36); Mean Corpuscular Hgb 31.6 pg (27.0-32.0); Mean Corpuscular Volume 101.6 fL (80-94); Mean Platelet Vol. 11.9 fl (6.2-12.0); Monocyte# 1.15 X10^3/uL; Monocyte% 19.3 % (0-10); NRBC Flagged by Analyzer 0 % (0-5); Neutrophil # 3.69 X10^3/uL (2.7-7.7); Neutrophil % 61.9 % (47-70); POSITIVE COUNT YES; POSITIVE MORPHOLOGY YES; Platelet Count 69 K/mm3 (150-450); RBC Distribution Width CV 17.8 % (11.6-14.6); RBC Distribution Width SD 66.4 fl (35.1-43.9); Red Blood Count 2.56 M/mm3 (4.6-6.2)
[2021-12-16 11:34] LABS: Differential Indicated SCAN CRITERIA MET
[2021-12-16 11:40] LABS: Anion Gap 5 (5-15); BUN 47 mg/dL (7-18); BUN/Creat Ratio 38.2 RATIO (10-20); Chloride 114 mmol/L (98-107); Creatinine, Serum 1.23 mg/dL (0.70-1.30); EST Glomerular Filtration Rate 59 mL/min (>60); Est Glom Filt Rate - Afr Amer 72 mL/min (>60); Estimated Creatinine Clearance 46.44 ml/min; Glucose 127 mg/dL (74-106); Potassium 4.4 mmol/L (3.5-5.1); Sodium Level 140 mmol/L (136-145)
[2021-12-16 12:00] VITALS: BP 114/61; PULSE 67; RESP 16; TEMP 37.9; O2SAT 98
--- NOTE | 2021-12-16 12:29 | NURSING ---
Pt hypotensive this morning with BP 97/43 and 99/41. Resident is refusing breakfast, abdomen distended with hyperactive bowel sounds, lethargic and weakness. Dr. Shea updated and N.O. 500ml IV NS at 500ml/hr. Residents BP rechecked and noted to be 105/44, RR 28, SPO2 92% RA, Oral temp 100.8, HR 64. Dr. Shea updated and N.O CBC, BMP, U/a C&S, Covid swab, respiratory panel, CXR, KUB. Lab results and imaging reports reported to Dr. Shea N.O. CT of abdomen and pelvis with contrast to r/o bowel obstruction, IV levaquin 750mg QD x 7 days for pna, and repeat cbc and bmp tomorrow, resident and updated on all new orders. CT preauthorization was started with tracking #[id number], clinical information faxed for clinical review per request.
[2021-12-16 12:34] LABS: Differential Comment SCANNED; Platelet Estimate MOD DEC (ADEQ); Reactive Lymphocyte 1+
[2021-12-16 12:35] LABS: Anisocytosis 2+; Macrocytosis 1+; Microcytosis 1+
--- NOTE | 2021-12-16 12:52 | PCM.PN.DRR ---
TCU RX Drug Regimen Review Subjective: TCU Admission. 86 YOM presented to the ER with weakness. Hospitalized for weakness secondary to acute anemia for gastrointestinal bleed, complicated by acute kidney injury, hyperkalemia, encephalopathy. Admitted to TCU with debility for strengthening and rehabilitation. Objective: Allergies adhesive tape Allergy (Mild, Verified 08/20/21 14:32) RASH iodine Allergy (Mild, Verified 08/20/21 14:32) UNKNOWN Current Medications Generic Name Dose Route Start Last Admin Trade Name Freq PRN Reason Stop Dose Admin Acetaminophen 1,000 mg 12/12/21 21:53 12/16/21 11:17 Acetaminophen 500 Mg Tablet PO 1,000 mg Q6H PRN PRN Administration Pain 1-10 or Fever Allopurinol 150 mg 12/13/21 08:00 12/16/21 08:24 Allopurinol 300 Mg Tablet PO 150 mg BREAKFAST DAVID Administration Ascorbic Acid 500 mg 12/13/21 08:00 12/16/21 08:25 Ascorbic Acid 500 Mg Tablet PO 500 mg BREAKFAST DAVID Administration Aspirin 81 mg 12/16/21 08:00 12/16/21 08:24 Aspirin E.C. 81 Mg Tablet PO 81 mg BREAKFAST DAVID Administration Atorvastatin Calcium 40 mg 12/12/21 22:00 12/15/21 21:50 Atorvastatin Calcium 40 Mg Tablet PO 40 mg QHS DAVID Administration Bisacodyl 10 mg 12/12/21 16:29 12/15/21 06:46 Bisacodyl 10 Mg Suppository RC 10 mg DAILY PRN Administration CONSTIPATION Calamine/Phenol 1 applic 12/15/21 06:00 12/16/21 05:09 Menthol/Lanolin/Calamine/Znox 113 Gm Tube TOPICAL 1 applic BID DAVID Administration Protocol Levofloxacin 750 mg in 150 mls @ 100 mls/hr 12/16/21 13:00 Levaquin Iv IV 12/22/21 18:00 Q48 DAVID Levothyroxine Sodium 125 mcg 12/13/21 06:00 12/16/21 05:07 Levothyroxine 125 Mcg Tablet PO 125 mcg DAILY DAVID Administration Magnesium Hydroxide 30 ml 12/12/21 21:53 12/15/21 06:46 Magnesium Hydroxide 30 Ml Udc PO 30 ml X1 PRN Administration Constipation Nutritional Formula (Lactose Free) 120 ml 12/14/21 17:00 12/16/21 11:15 Ensure Plus High Protein 120 Ml Liquid PO 120 ml 4X/DAY DAVID Administration Nystatin 1 applic 12/14/21 06:00 12/16/21 05:09 Nystatin Powder 15gm Bottle TOPICAL 1 applic BID DAVID Administration Protocol Polysaccharide Iron Complex 150 mg 12/13/21 08:00 12/16/21 08:25 Iron Polysaccharide Complex 150 Mg Capsule PO 150 mg 0800 DAVID Administration Senna/Docusate Sodium 1 tablet 12/12/21 22:00 12/16/21 05:07 Senna/Docusate Sodium 1 Tablet PO 1 tablet BID DAVID Administration Sodium Chloride 10 ml 12/12/21 18:57 12/16/21 08:41 0.9% Saline Lock 10 Ml Syringe IV 10 ml PRN PRN Administration IV patency Sodium Chloride 10 - 40 ml 12/12/21 21:45 0.9% Saline Lock 10 Ml Syringe IV UD PRN SALINE FLUSH Tuberculin PPD 0.1 ml 12/20/21 10:00 Tuberculin,Purif.Prot.Deriv. 50 Tu/Ml Vial ID 12/20/21 10:01 X1 ONE Problem List (Last Reviewed 12/12/21 @ 21:[address] Manas Shea MD) Allergic rhinitis (Acute) Gout (Acute) Edema (Acute) Hypothyroidism (Acute) Coronary artery disease (Acute) Hyperkalemia (Acute) Acute kidney injury (Acute) Gastrointestinal bleed (Acute) Acute anemia (Acute) Weakness (Acute) Debility (Acute) Vital Signs Temp Pulse Resp BP Pulse Ox O2 Del Method 98.8 F 68 16 99/41 L 98 Room Air 12/15/21 13:54 12/16/21 06:46 12/15/21 13:54 12/16/21 06:46 12/15/21 13:54 12/15/21 13:54 Oxygen Delivery Method Room Air Weight: 98.883 kg Body Mass Index (BMI) 29.1 Sodium 140 mmol/L (136-145) 12/16/21 10:50 Potassium 4.4 mmol/L (3.5-5.1) 12/16/21 10:50 Chloride 114 mmol/L (98-107) H 12/16/21 10:50 Carbon Dioxide 21.0 mmol/L (21.0-32.0) 12/16/21 10:50 Anion Gap 5 (5-15) 12/16/21 10:50 BUN 47 mg/dL (7-18) H 12/16/21 10:50 Creatinine 1.23 mg/dL (0.70-1.30) 12/16/21 10:50 Est GFR (MDRD) Af Amer 72 mL/min (>60) 12/16/21 10:50 Est GFR (MDRD) Non-Af 59 mL/min (>60) L 12/16/21 10:50 BUN/Creatinine Ratio 38.2 RATIO (10-20) H 12/16/21 10:50 Glucose 127 mg/dL (74-106) H 12/16/21 10:50 Assessment/Plan: 1. Pain: acetaminophen 1000mg PO Q6H PRN pain 1-10. Please continue to monitor for increased pain and PRN usage. Resident received a dose this morning for fever. 2. Bowel: senna/docusate 1T PO BID, MOM 30mL PO x1 PRN constipation and bisacodyl 10mg RC daily PRN constipation. Last documented bowel movement 12/11. Bisacodyl and MOM given on 12/15. 3. Pneumonia (per nursing note): levofloxacin 750mg IV Q48H thru 12/22/21. Please continue to monitor respiratory panel (pending), diarrhea, renal function tendon pain and diarrhea. 4. Gout: allopurinol 150mg PO breakfast. Please continue to monitor for S/S of gout and renal function. 5. Iron deficiency anemia: Ferrex 150mg PO daily and ascorbic acid 500mg PO daily. Please continue to monitor hemoglobin (last 8.1g/dL), dark stools and constipation. 6. CAD: aspirin 81mg PO breakfast. Please continue to monitor for S/S of bleeding and hemoglobin. Metoprolol stopped due to low blood pressures this morning. 7. Hyperlipidemia: atorvastatin 40mg PO QHS. Please continue to monitor lipid panel (last 07/16/21), LFTS (last 07/16/21) and muscle pain. 8. Hypothyroidism: levothyroxine 125mcg PO daily. Please continue to monitor TSH (last 12/10/21) and for S/S of hypo/hyperthyroidism. Assessment/Plan for indications treated with psychotropic medications: None Medical chart and medication regimen reviewed. The following medication irregularities or issues were identified: None Date of Note:: 12/16/21
[2021-12-16] MEDS: levoFLOXacin IV 750 MG/150 ML BAG 100 MG IV (13:33)
[2021-12-16 13:36] VITALS: BP 103/53; PULSE 68; RESP 26; TEMP 36.9; O2SAT 95
--- NOTE | 2021-12-16 18:42 | NURSING ---
This nurse went to unhook IV antibiotic and noted IV catheter to be bent and partly pulled out of arm. Dressing and IV catheter removed, catheter tip intact. New IV inserted to right forearm above old IV site. Upon attaching extension loop tubing, resident withdrew his arm and pulled IV out. Dressing applied to stop bleeding and no further attempts were given at this time. Will assess at later time.
[2021-12-16] MEDS: Atorvastatin Calcium 40 MG Tablet PO (20:40)
[2021-12-17] VITALS (7 sets, daily range): BP systolic 80–105; BP diastolic 30–46; PULSE 54–74; RESP 16–18; TEMP 36.6–36.7; O2SAT 95–97
[2021-12-17] MEDS: Ensure Plus High Protein 120 ML LIQUID PO ×2 (04:49→13:17)
[2021-12-17] MEDS: Senna/Docusate Sodium 1 Tablet PO (04:49)
[2021-12-17] MEDS: Levothyroxine 125 MCG Tablet PO (04:49)
[2021-12-17] MEDS: Nystatin Powder 15gm Bottle 1 APPLIC TOPICAL ×2 (04:52→21:18)
[2021-12-17] MEDS: Menthol/Lanolin/Calamine/Znox 113 GM Tube 1 APPLIC TOPICAL ×2 (04:52→17:42)
[2021-12-17 05:52] LABS: Absolute Lymphocyte Count 0.91 X10^3/uL (0.83-4.51); Basophil# 0.04 X10^3/uL; Basophil% 0.7 % (0-1); Eosinophil# 0.13 X10^3/uL; Eosinophils% 2.2 % (0-5); Hematocrit 26.1 % (40-54); Hemoglobin 8.3 g/dL (13.0-16.5); Lymphocyte # 0.91 X10^3/ul (0.83-4.51); Lymphocyte % 15.6 % (19-41); Mean Corp Hgb Conc 31.8 g/dL (32-36); Mean Corpuscular Hgb 32.5 pg (27.0-32.0); Mean Corpuscular Volume 102.4 fL (80-94); Mean Platelet Vol. 11.5 fl (6.2-12.0); Monocyte# 0.68 X10^3/uL; Monocyte% 11.6 % (0-10); NRBC Flagged by Analyzer 0 % (0-5); Neutrophil # 3.99 X10^3/uL (2.7-7.7); Neutrophil % 68.2 % (47-70); POSITIVE COUNT YES; POSITIVE MORPHOLOGY YES; Platelet Count 72 K/mm3 (150-450); RBC Distribution Width CV 17.6 % (11.6-14.6); RBC Distribution Width SD 66.2 fl (35.1-43.9); Red Blood Count 2.55 M/mm3 (4.6-6.2); White Blood Count 5.9 K/mm3 (4.4-11.0)
[2021-12-17 05:54] LABS: Differential Indicated SCAN CRITERIA MET
[2021-12-17 06:21] LABS: Atypical Lymphocyte RARE %; Differential Comment SCANNED; Platelet Estimate MOD DEC (ADEQ)
[2021-12-17 06:22] LABS: Anisocytosis 1+; Macrocytosis 1+
[2021-12-17 06:26] LABS: Anion Gap 6 (5-15); BUN 48 mg/dL (7-18); BUN/Creat Ratio 35.8 RATIO (10-20); Calcium,Total 8.1 mg/dL (8.5-10.1); Chloride 112 mmol/L (98-107); Creatinine, Serum 1.34 mg/dL (0.70-1.30); EST Glomerular Filtration Rate 54 mL/min (>60); Est Glom Filt Rate - Afr Amer 65 mL/min (>60); Estimated Creatinine Clearance 42.63 ml/min; Glucose 103 mg/dL (74-106); Potassium 4.5 mmol/L (3.5-5.1); Sodium Level 140 mmol/L (136-145)
[2021-12-17] MEDS: Allopurinol 300 MG Tablet 150 MG PO (08:47)
[2021-12-17] MEDS: Iron Polysaccharide Complex 150 MG CAPSULE PO (08:47)
[2021-12-17] MEDS: Aspirin E.C. 81 MG Tablet PO (08:47)
[2021-12-17] MEDS: Ascorbic Acid 500 MG Tablet PO (08:47)
[2021-12-17] MEDS: Acetaminophen 500 MG Tablet 1000 MG PO (08:53)
--- NOTE | 2021-12-17 14:27 | MDS.RN ---
Pain interview for ELLA 12/19/21
--- NOTE | 2021-12-17 14:29 | SP.MBSS_ITS ---
Modified Barium Swallow - Patient Information Study Date: 12/17/21 Study Time: 13:30 Direct Billable Minutes: 180 Total Minutes procedure & reportin Diagnosis: debility (R53.81), gastrointestinal bleed (K92.2) Referring Physician: Manas Shea Chi Reason for Referral: Objectively assess swallow function, risk for aspiration, and determine recommendations for least restrictive diet textures and compensatory strategies to improve safety of swallow. Medical History: ASIA WILSON, is a 86 Male who presents to [facility] Emergency Department with weakness on 12/09/21. Weakness x 2-3 weeks, in bed x 5 days. No energy to do anything, decreased appetite, decreased oral intake. Low hemoglobin. IV Fluids, Serial H&H, hold antiplatelet medications, Protonix, GI consult, for upper GI bleed. IV Fluids, Hold Lasix, Hold Lisinopril, decrease Allopurinol for acute kidney injury. Dr. Leach EGD single bleeding angiodysplastic lesion treated with heater probe. Dr. 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 Admit to TCU on 12/12/21 with debility, here for rehabilitation, strengthening, prior to discharge home with . Recent chest x-ray on 12/16/21 w/ the following impression re: patchy right lower lobe infiltrate.Small bilateral pleural effusions versus pleural reaction lateral costophrenic sulci. Current Diet Ordered: soft and bite sized / thin liquids Dentition: Edentulous Mental Status: WNL Respiratory Status: Oxygenating on Room Air - Penetration-Aspiration Scale Penetration-Aspiration Scale: OBJECTIVE ASSESSMENT OF SWALLOW FUNCTION (QUANTITATIVE ? PER TRIAL): PENETRATION / ASPIRATION SCALE (ZARCO): 1 = does not enter airway 2 = enters airway/above vocal folds/ejected 3 = enters airway/above vocal folds/not ejected 4 = enters airway/contacts vocal folds/ejected 5 = enters airway/contacts vocal folds/not ejected 6 = enters airway/below vocal folds/ejected 7 = enters airway/below vocal folds/not ejected despite effort 8 = enters airway/below vocal folds/no effort VIDEOFLOROSCOPIC SCALE SCORE (ZARCO): Grade I = aspiration of material that has penetrated into the laryngeal vestibule, intact cough reflex Grade II = aspiration < 10 % of the bolus, intact cough reflex Grade III = aspiration of < 10 % of the bolus, reduced cough reflex or aspiration of > 10 % of the bolus, intact cough reflex Grade IV = aspiration of > 10 % of the bolus, reduced cough reflex - Penetration-Aspiration Scale Score Thin Liquid via teaspoon Result: 1= does not enter airway Thin Liquid via teaspoon Trial 2 Result: 1= does not enter airway Thin Liquid via small single sip from cup Result: 1= does not enter airway Thin Liquid via single sip from straw Result: 2= enter airway/above vocal folds/ejected [place] Thick Liquid via small single sip from cup Result: 1= does not enter airway Honey Thick Liquid via small single sip from cup Result: 2= enter airway/above vocal folds/ejected Pudding Result: 1= does not enter airway Cookie Result: 1= does not enter airway Thin Liquid via small single sip from cup Trial 2 Result: 1= does not enter airway - Oral Phase Labial Seal: No Labial Escape Tongue Control During Bolus Hold: Posterior escape of greater than half of bolus Bolus Preparation/Mastication: Minimal chewing/mashing with majority of bolus unchewed Bolus Transport/Lingual Motion: Repetitive/disorganized tongue motion Oral Residue: Majority of bolus remaining - Pharyngeal Phase Initiation of Pharyngeal Swallow: Bolus head in pyriforms Soft Palate Elevation: No bolus between soft palate and pharyngeal wall Laryngeal Elevation: Partial superior movement thyroid cart/partial apprx aryt- epig petiole Anterior Hyoid Excursion: Complete anterior movement Epiglottic Movement: Partial inversion Laryngeal Vestibule Closure at Height of Swallow: Incomplete; narrow column of air/contrast in laryngeal vestibule Pharyngeal Stripping Wave: Present - diminished Pharyngoesophageal Segment Opening: Complete distension and complete duration; no obstruction of flow Tongue Base Retraction: Narrow column of contrast between tongue base & post. pharyngeal wall Pharyngeal Residue: Majority of contrast within or on pharyngeal structures - Treatment Strategies Effects of treatment strategies attemped:: re-swallow after initial swallow to clear pharyngeal residue = somewhat effective - Diagnosis/Impression Diagnosis: severe oral phase R13.11, moderate pharyngeal phase R13.13 Impression: Oral phase primarily marked by... - severe mastication inefficiency. Piecemeal deglutition observed w/ pudding and 1/2 shortbread cookie. - severe deficits lingual control with all consistencies especially noted w/ larger boluses. Repetitive lingual pumping observed contributing to poor oral clearance. - oral phase swallow onset delay (5-8 seconds in length) resulting in premature bolus loss Pharyngeal phase primarily marked by... - poor pharyngeal motility attributed to reduced tongue based retraction and reduced pharyngeal stripping wave action resulting in moderate to severe pharyngeal retention within the valleculae and pyriforms. - reduced pharyngoesophageal segment opening resulting in moderate to severe pharyngeal retention within the valleculae and pyriforms. - Trace penetration observed w/ honey thick liquid via cup when cued to re- swallow to clear pharyngeal residue observed on fluoroscopy. Otherwise, patient demonstrates adequate airway closure observed w/ all consistencies. Cannot definitively rule out aspiration due to patient's body habitus - patient leaning forward for majority of the study despite verbal and tactile cueing. Patient is at high risk for aspiration d/t severity of oral and pharyngeal residue. - Recommendations Diet: Puree Textures - moist puree textures, Thin Liquids Compensatory Strategies: Small Bites, Small Sips, No Straws, Slow Rate, Feed only when alert, Multiple Swallows - extra dry swallow for every bite and sip, Alternate bites/solids and sips/liquids, Sitting upright, Remain sitting upright for 30 minutes after PO intake, Minimize/decrease distractions, Assist with verbal cues to use recommended strategies Supervision: Total Feed, 1:1 Close Supervision Recommend Repeat Modified Barium Swallow: TBD Need for Skilled Speech Therapy Services: Yes Comment: Patient requires intensive skilled speech-language intervention targeting continued diet texture management, training and implementation of recommended compensatory strategies, training and implementation of oropharyngeal strengthening exercises to facilitate improved lingual control/strength, swallow onset timing, tongue base retraction, pharyngeal motility. Education Completed: 1. Described result of evaluation., 2. Pt understands evaluation & agrees with goals and treatment plan. - Status Active ST Patient: Active - Contact Information [facility] Speech Therapy:: Claudia Pickett M.A. [facility] COORDIN[facility] Speech-Language Pathologist [facility] [address] [place] [address] [email or web address] [phone] 12/17/21 15:18
--- NOTE | 2021-12-17 15:13 | NURSING ---
PT CAME TO THIS NURSE WITH QUESTIONS AND REFERRED HER TO THE NURSE PRIVATE DUTY. STATED BAKARI NOT READY TO TALK TO HER. YESTERDAY I HAD MEETING AND WASN'T READY TO ANSWER QUESTIONS THEY HAD AND WE HAVE NEVER BEEN IN THIS SITUATION BEFORE AND ME AND MY FELT PRESSURE. THIS NURSE STATED BAKARI SORRY THEY FELT THAT WAY AND WOULD HELP ANY TIME AND GET ANSWER TO QUESTIONS SHE HAD. STATED I WILL THINK ABOUT IT AND LET YOU KNOW. WE HAVE MONEY FOR HIM TO STAY WHAT EVER THE INSURANCE SAYS. THIS NURSE AGAIN REFEREED TO NURSE PRIVATE DUTY AND STATED SHE WOULD LET ME KNOW WHEN SHE WANTS TO TALK TO HER. SEEMS CONFUSED AT TIMES WHEN TALKING TO HER AND REPEATED HER SELF. THIS NURSE FEELS IS NOT UNDERSTANDING WHAT IS GOING ON WITH PT ETC. RN AWARE.
--- NOTE | 2021-12-17 17:24 | NURSING ---
PT COLOR WAS OFF EARLIER TODAY,GRAYISH/WHITE BUT GOT COLOR BACK QUICKLY. PT CONTINUES TO SLEEP MOST OFF DAY BUT WILL RESPOND TO YOU IF AWAKEN. VITALS DONE MANUAL LEFT ARM 80/30 AND RIGHT 98/46,TEMP 98.0 R 18,O2 96% RA,HR 54. PT WILL NOT EAT OR DRINK MUCH. NOTIFIED.
[2021-12-17] MEDS: Dext 5%-0.45% NS 1,000 ML 60 ML IV (22:05)
--- NOTE | 2021-12-17 22:20 | NURSING ---
Attempted to call patient's . Phone goes straight to voicemail.
--- NOTE | 2021-12-17 22:22 | NURSING ---
Patient more lethargic this shift. IV restarted in right AC. Vitals obtained as charted in vitals.
--- NOTE | 2021-12-17 22:29 | NURSING ---
Dr. Shea paged and updated on patients vitals and being lethargic. New order to send patient to ED for further evaluation. 22:32-Report called to Francesca GARCIA in ED.
--- NOTE | 2021-12-17 22:52 | NURSING ---
patient transported to ED via bed by PATIENT NAVIGATOR and MEDICAL NUMERICAL CONTROL OPERATOR at this time
--- NOTE | 2021-12-17 23:52 | NURSING ---
Left voicemail for after attempting to call several times.
--- NOTE | 2021-12-18 02:17 | NURSING ---
Another voicemail left for Milady again.
--- NOTE | 2021-12-18 05:00 | NURSING ---
Patient has been admitted inpatient to PCU.
--- NOTE | 2021-12-18 08:02 | PCM.DC.SUM ---
Providers Date of Admission: 12/12/21 Primary Care Physician: Dr. Agus Almaguer MD Reason For Visit: [place]/ GI BLEED Diagnosis Discharge Diagnosis (1) Debility: Status: Acute Code(s): R53.81 - Other malaise (2) Weakness: Status: Acute Code(s): R53.1 - Weakness (3) Acute anemia: Status: Acute Code(s): D64.9 - Anemia, unspecified (4) Gastrointestinal bleed: Status: Acute Code(s): K92.2 - Gastrointestinal hemorrhage, unspecified (5) Acute kidney injury: Status: Acute Code(s): N17.9 - Acute kidney failure, unspecified (6) Hyperkalemia: Status: Acute Code(s): E87.5 - Hyperkalemia (7) Coronary artery disease: Status: Acute Code(s): I25.10 - Atherosclerotic heart disease of [place] coronary artery without angina pectoris (8) Hypothyroidism: Status: Acute Code(s): E03.9 - Hypothyroidism, unspecified (9) Edema: Status: Acute Code(s): R60.9 - Edema, unspecified (10) Gout: Status: Acute Code(s): M10.9 - Gout, unspecified (11) Allergic rhinitis: Status: Acute Code(s): J30.9 - Allergic rhinitis, unspecified Plan 86 year old male with below past medical history hospitalized for weakness secondary to acute anemia for gastrointestinal bleed, complicated by acute kidney injury, hyperkalemia, encephalopathy, admitted to TCU with debility, here for rehabilitation, strengthening, prior to discharge home with . Debility - PT/OT. Dysphagia - ST. Pain - Tylenol 1000mg q6h prn pain (1-10). Bowel - senna/colace 1 tablet bid, MOM 30ml po daily prn, Dulcolax 10mg pr daily prn. Adult immunization - Administer pneumonia vaccine, covid19 vaccine, flu vaccine as appropriate. DVT prophylaxis - Hold, GI bleed. Gout - Allopurinol 300mg daily. Iron deficiency anemia - Ferrex 150mg daily, Vitamin C 500mg daily. Coronary artery disease - Metoprolol 12.5mg bid, aspiri 81mg daily. Hyperlipidemia - Atorvastatin 40mg qhs. Edema - Furosemide 20mg daily. Hypothyroidism - Levothyroxine 125mcg daily. Allergic rhinitis - Loratadine 10mg q48. Medications at Discharge Home Medications aspirin 81 mg tablet,delayed release (Adult Aspirin Regimen) 81 mg PO DAILY Heart health 01/23/21 atorvastatin 40 mg tablet 40 mg PO DAILY Cholestrol 01/23/21 levothyroxine 125 mcg tablet (Euthyrox) 125 mcg PO DAILY Thyroid 01/23/21 ascorbic acid (vitamin C) 500 mg tablet 500 mg PO DAILY Supplement 07/07/21 cholecalciferol (vitamin D3) 25 mcg (1,000 unit) tablet 25 mcg PO DAILY Supplement 07/07/21 multivitamin 1 tab PO DAILY Supplement 07/07/21 omega 5-mhn-dvx-fish oil 60 mg-90 mg-500 mg capsule (Fish Oil) 1 cap PO DAILY Supplement 07/09/21 allopurinol 300 mg tablet 150 mg PO DAILY Gout 08/20/21 lactobacillus combination no.4 3 billion cell capsule (Probiotic) 3,000 mmu cells PO DAILY Supplement 12/09/21 levofloxacin 750 mg/150 mL in 5 % dextrose intravenous piggyback 750 mg IV Q48H 12/17/21 polysaccharide iron complex 150 mg iron capsule (Ferrex) 150 mg PO DAILY 12/17/21 Hospital Course Operations None Procedures None Summary of Care Provided Minutes Spent on Discharge: 35 Hospital Course: 86 year old male with below past medical history hospitalized for weakness secondary to acute anemia for gastrointestinal bleed, complicated by acute kidney injury, hyperkalemia, encephalopathy, admitted to TCU with debility, here for rehabilitation, strengthening, prior to discharge home with . 12/16/2021 Resident with fever, Chest X-ray showed pneumonia treated with Levaquin, KUB showed ileus, unable to obtain CT abdomen/pelvis due to insurance pre-certification. 12/17/2021 Resident not eating, hypotensive despite IV fluids. 12/17/2021 Resident said he is ready to give up and , but his would like continued aggressive treatment. 12/17/2021 Discharge to [facility] Emergency Department for evaluation, possible admission to hospital. Physical Exam Const alert General Appearance: cooperative HEENT normocephalic Eyes PERRL and EOMs intact bilaterally Neck supple, no JVD and no carotid bruits Resp normal respiratory effort, normal air movement and clear to auscultation bilaterally Cardio regular rate and regular rhythm GI normal to inspection, nondistended, normoactive bowel sounds, non-tender and non-distended Extremity normal capillary refill General Extremity: Negative for edema Skin no rashes or lesions noted General Skin Exam: no breakdown Psych affect normal Appearance: appropriate Weight / BMI Weight Weight: 98.883 kg Body Mass Index (BMI) 29.1 ABG / Lab / Microbiology Data Result Diagrams: 12/17/21 05:19 12/17/21 05:19 Microbiology: Microbiology 12/16/21 10:37 Urine Catheter - Catheter Urine Culture - Preliminary Culture exhibits no growth. 12/16/21 10:30 Mucosa - Nasopharyngeal Respiratory Panel (PCR) - Final 12/15/21 10:20 Nasal Secretion SARS-CoV-2 Antigen (Rapid) - Final D/C Instructions Discharge Diet: No restrictions Discharge Activity: Return to Normal Activity, May Shower and Use Walker Weight Bearing Status: Weight bearing as tolerated Call your doctor if you observe: Fever of 101 or Higher, Inability to urinate, Inability to have a bowel movement, Shortness of breath, Dizziness, Fainting spells, Swelling in the ankles, Chest pain and Uncontrolled pain Additional Instructions: 12/17/2021 Discharge to [facility] Emergency Department for evaluation, possible admission to hospital Please Follow Up With: Friend,Eduardo, DO When: As scheduled. Meaningful Use Info Meaningful Use Diagnoses (Choose all that apply): None applicable Discharge Plan Admission Admit Date/Time: 12/12/21 16:03 Primary Reason for Your Visit: Debility. Attending Provider: Manas Shea Chi Primary Care Provider: Agus Almaguer Instructions Additional Instructions / Restrictions: 12/17/2021 Discharge to [facility] Emergency Department for evaluation, possible admission to hospital Discharge Orders/Prescriptions Prescriptions: No Action atorvastatin 40 mg tablet 40 mg PO DAILY aspirin [Adult Aspirin Regimen] 81 mg tablet,delayed release (DR/EC) 81 mg PO DAILY levothyroxine [Euthyrox] 125 mcg tablet 125 mcg PO DAILY omega 6-jze-bnr-fish oil [Fish Oil] 60-90-500 mg capsule 1 cap PO DAILY ascorbic acid (vitamin C) 500 mg tablet 500 mg PO DAILY cholecalciferol (vitamin D3) 25 mcg (1,000 unit) tablet 25 mcg PO DAILY multivitamin Tablet 1 tab PO DAILY allopurinol 300 mg tablet 150 mg PO DAILY Probiotic 3 billion cell Capsule 3,000 mmu cells PO DAILY Rx Instructions: administer with a meal polysaccharide iron complex [Ferrex 150] 150 mg iron Capsule 150 mg PO DAILY levofloxacin in D5W [Levaquin in 5 % dextrose] 750 mg/150 mL Piggyback 750 mg IV Q48H Referrals / Follow Up: Agus Almaguer MD [Primary Care Provider] - Disposition Disposition (needs filled in before D/C Order can be placed): Acute Care Hospital [facility]
--- NOTE | 2021-12-21 09:46 | NURSING ---
Prop And Scenery Maker Note; MDS for 12/17/2021 complete
== END 2021-12-17 22:52 | disposition short-term general hospital (02) | DRG 811 ==
PROVIDERS: Admitting Provider Family Medicine Geriatric Medicine; PCP Family Medicine; Visit Provider Family Medicine Geriatric Medicine
DX: D50.9 Iron deficiency anemia, unspecified (principal); J18.9 Pneumonia, unspecified organism; K56.7 Ileus, unspecified; K92.2 Gastrointestinal hemorrhage, unspecified; I25.10 Atherosclerotic heart disease of native coronary artery without angina pectoris; E03.9 Hypothyroidism, unspecified; E78.00 Pure hypercholesterolemia, unspecified; I10 Essential (primary) hypertension; M10.9 Gout, unspecified; Z79.82 Long term (current) use of aspirin; Z79.02 Long term (current) use of antithrombotics/antiplatelets; Z79.899 Other long term (current) drug therapy; Z86.16 Personal history of COVID-19; Z79.890 Hormone replacement therapy
CPT/HCPCS: 36415; 71046; 74018; 74230; 80048; 81001; 85025; 87086; 87633; 87811; 92507; 92526; 92610; 92611; 96125; 97110; 97162; 97166; 97530; 97535; 97802; J7040; J7050; A4216; J7799

== ENCOUNTER 2021-12-17 22:57 | Inpatient (IN) | payer MEDICARE, SELFPAY ==
[2021-12-17 22:58] VITALS: BP 107/54
[2021-12-17 23:00] VITALS: PULSE 69; RESP 15; TEMP 36.7; O2SAT 97; BMI 31.1
[2021-12-17 23:04] VITALS: BP 107/54; PULSE 69; RESP 15; TEMP 36.7; O2SAT 97
--- NOTE | 2021-12-17 23:16 | EKG12_ITS ---
Test Reason : DYSRHYTHMIA Blood Pressure : / mmHG Vent. Rate : 069 BPM Atrial Rate : 227 BPM P-R Int : 000 ms QRS Dur : 086 ms QT Int : 358 ms P-R-T Axes : 000 -46 237 degrees QTc Int : 383 ms Atrial flutter with variable A-V block Left axis deviation Low voltage QRS Nonspecific T wave abnormality Abnormal ECG Confirmed by IAN RUBIN, KELSEY ([id number]), deputy editor in chief MYRNA OLSEN ([id number]) on 12/19/2021 9:19:59 AM Referred By: FRACISCO Confirmed By:KELSEY SOSA MD
--- NOTE | 2021-12-17 23:16 | CT_ITS ---
STUDY: CT ABDOMEN AND PELVIS WITHOUT CONTRAST REASON FOR EXAM: Male, 86 years old. ? SBO RADIATION DOSAGE (If Supplied By Facility): CTDIvol = ( 27.52 ) mGy, DLP = ( 1438.45 ) mGycm TECHNIQUE: Transaxial images were obtained from the dome of the diaphragm to the symphysis pubis without oral contrast, and without intravenous contrast. Sagittal and coronal images were reconstructed. Individualized dose optimization techniques were used for this CT. COMPARISON: None. FINDINGS: Exam is limited due to motion artifact and decrease resolution related to patient''s arms. In addition, there is residual contrast within the colon with beam hardening artifact limiting surrounding detail. Bilateral lower lobe atelectasis. Mild cardiomegaly with coronary artery calcifications. Mild to moderate bilateral pleural effusions, left larger than right. Normal liver. There are surgical clips in the gallbladder fossa consistent with a prior cholecystectomy. Spleen measures 15.7 cm consistent with splenomegaly. Normal pancreas. Significant bilateral hypertrophy of the adrenal glands. Tiny right upper renal pole low-attenuation structure measuring 9.9 mm with [place] units consistent with a cyst. Bilateral perinephric stranding otherwise normal right kidney. Normal left kidney. Normal visualized stomach. Normal small intestine. Residual contrast seen within the right colon with beam hardening artifact limiting fine adjacent detail. There is non-visualization of the appendix. There is diffuse atherosclerotic calcification of the abdominal aorta, without a demonstrated aneurysm. Normal inferior vena cava. Normal retroperitoneum. Normal urinary bladder. Mild prostate enlargement. Nonspecific presacral stranding. Diffuse fluid infiltration of subcutaneous fat consistent with anasarca. There is mild ascitic fluid along the greater curvature of the stomach and near the gastric fundus. Normal abdominal wall. There are diffuse degenerative changes of the visualized lumbar spine. CT/Abdomen/Pelvis without Cont IMPRESSION: Nonspecific stranding/inflammation in the presacral region. No bowel obstruction or focal inflammatory process throughout the gastrointestinal tract. Status post cholecystectomy. Splenomegaly. Tiny cyst in the upper pole of the right kidney, otherwise unremarkable abdominal viscera. Severe hypertrophy of bilateral adrenal glands, etiology indeterminate. Mild ascitic fluid predominantly in the left upper abdomen along the upper greater curvature of the stomach and fundal region. Electronically Signed: Shonna Cobos MD at 0:17 EDT ,
--- NOTE | 2021-12-17 23:16 | CT_ITS ---
INDICATION: pneumonia EXAMINATION: CT CHEST WITHOUT CONTRAST - CT Chest W/O Contrast Injection TECHNIQUE: Helically acquired images were obtained of the chest. A radiation dose optimization technique was used for this scan. IV Contrast dosage and agent: None. COMPARISON: None. FINDINGS: LUNGS, PLEURA AND LARGE AIRWAYS: Mild bilateral basilar atelectasis, more so within the lower lobes, right more than left. Possible minimal bilateral bronchiectasis. Mild to moderate bilateral pleural effusions, left larger than right. No pneumothorax. THYROID: No thyroid lesions. HEART AND PERICARDIUM: Mild cardiomegaly . No pericardial effusion. CORONARY ARTERIES: Coronary artery calcification is seen. VESSELS: Atherosclerotic disease of aorta with no aneurysm. MEDIASTINUM AND CONCEPCION: No mediastinal or hilar adenopathy. Esophagus is unremarkable. No hiatal hernia. UPPER ABDOMEN: Hypertrophy of the bilateral adrenal glands. Mild fluid along the upper aspect of the greater curvature of the stomach near the fundus. BONES: Diffuse osteopenia with degenerative disease of the spine. No focal lesion seen. CT/Chest without Contrast IMPRESSION: Bilateral lower lobe atelectasis with pleural effusions. Possible minimal bilateral bronchiectasis. Cardiomegaly. Mild free fluid in the left upper abdomen. Adrenal hypertrophy. Electronically Signed: Shonna Cobos MD at 0:20 EDT ,
[2021-12-17] MEDS: 0.9% Normal Saline 1,000 ML 150 ML IV (23:35)
--- NOTE | 2021-12-17 23:36 | EX.ED.DYSGE1 ---
HPI History of Present Illness Chief Complaint: General Illness Informant: other (TCU report ) Narrative Narrative: Patient is an 86-year-old male presenting from the TCU for worsening confusion, low blood pressures and abnormal KUB with ileus. Patient is currently in the TCU for weakness and had a recent hospitalization for GI bleed. On 12/10 had an EGD with a single bleeding angiodysplastic lesion which was treated with a heater probe. Patient was transfused 2 units of packed red blood cells. On 04/13 patient had a colonoscopy which showed severe diverticulosis, hemorrhoids and 4 small polyps removed with a single bleeding colonic angiodysplastic lesion that was treated. The following day patient was noted to be lethargic and confused with a hemoglobin of 8.3 and a creatinine 1.18. He was admitted to the TCU that day for rehabilitation, strengthening prior to discharge home. TCU staff notes that patient been talking about feeling that this is the end of his life. Patient had a KUB yesterday which showed a possible ileus.Patient had chest x-ray that showed a possible pneumonia and is on Levaquin. He is not been eating much and is currently on D5 drip. Has been having low blood pressures since being in the TCU per nursing report. Insurance cannot approve CT scans he was sent to the ER for further evaluation to rule out small bowel obstruction. Patient currently denies any pain but is quite confused. [facility] Medical History Arthritis Atherosclerotic heart disease of [place] coronary artery without angina pectoris Atrial flutter Dysphagia Encounter for screening for COVID-19 Essential hypertension Heart disease Hypertension Preoperative cardiovascular examination Presence of stent in coronary artery (~01/13/01) Pure hypercholesterolemia Rheumatic fever Shortness of breath URI (upper respiratory infection) Home Medications aspirin 81 mg tablet,delayed release (Adult Aspirin Regimen) 81 mg PO DAILY Heart health 01/23/21 [History Last Taken Unknown] atorvastatin 40 mg tablet 40 mg PO DAILY Cholestrol 01/23/21 [History Last Taken Unknown] levothyroxine 125 mcg tablet (Euthyrox) 125 mcg PO DAILY Thyroid 01/23/21 [History Last Taken Unknown] ascorbic acid (vitamin C) 500 mg tablet 500 mg PO DAILY Supplement 07/07/21 [History Last Taken Unknown] cholecalciferol (vitamin D3) 25 mcg (1,000 unit) tablet 25 mcg PO DAILY Supplement 07/07/21 [History Last Taken Unknown] multivitamin 1 tab PO DAILY Supplement 07/07/21 [History Last Taken Unknown] omega 6-plj-rsx-fish oil 60 mg-90 mg-500 mg capsule (Fish Oil) 1 cap PO DAILY Supplement 07/09/21 [History Last Taken Unknown] allopurinol 300 mg tablet 150 mg PO DAILY Gout 08/20/21 [History Last Taken Unknown] lactobacillus combination no.4 3 billion cell capsule (Probiotic) 3,000 mmu cells PO DAILY Supplement 12/09/21 [History Last Taken Unknown] levofloxacin 750 mg/150 mL in 5 % dextrose intravenous piggyback 750 mg IV Q48H 12/17/21 [History Last Taken Unknown] polysaccharide iron complex 150 mg iron capsule (Ferrex) 150 mg PO DAILY 12/17/21 [History Last Taken Unknown] Allergy/AdvReac Type Severity Reaction Status Date / Time adhesive tape Allergy Mild RASH Verified 12/17/21 22:59 iodine Allergy Mild UNKNOWN Verified 12/17/21 22:59 Family History Father Myocardial infarction, Onset Age: 46 Surgical History History of carpal tunnel release History of cholecystectomy Presence of coronary angioplasty implant and graft (~01/13/01) Social History household members: spouse Smoking Status: Never smoker alcohol intake: never substance use type: does not use caffeine: Yes Type: coffee Number of servings: 1 ROS ROS ED Review of Systems ROS Unobtainable: due to mental status EXAM Physical Exam Const Vital Signs: 12/17/21 23:00 12/17/21 23:05 12/17/21 22:58 Temperature 98.1 F Temperature Source Oral Pulse Rate 69 Respiratory Rate 15 Respiratory Effort Normal Non-Labored Respiratory Pattern Normal Blood Pressure 107/54 L Blood Pressure Mean 71 Pulse Ox 97 Oxygen Delivery Method Room Air 12/17/21 23:04 12/18/21 00:58 12/18/21 02:00 Temperature 98.1 F Temperature Source Oral Pulse Rate 69 73 77 Respiratory Rate 15 16 18 Respiratory Effort Respiratory Pattern Blood Pressure 107/54 L 108/51 L 103/73 Blood Pressure Mean 71 70 83 Pulse Ox 97 98 97 Oxygen Delivery Method Room Air Room Air Room Air 12/18/21 02:04 Temperature 98 F Temperature Source Temporal Pulse Rate 77 Respiratory Rate 18 Respiratory Effort Respiratory Pattern Blood Pressure 103/73 Blood Pressure Mean 83 Pulse Ox 97 Oxygen Delivery Method Room Air Positive well nourished Constitutional Narrative: Elderly, frail-appearing HEENT Reports dry mucous membranes Negative for trauma Mouth ED: Yes dry mucous membranes Mouth: dry mucous membranes Eyes PERRL and EOMs intact bilaterally General Eye ED: Yes pale conjunctiva Neck supple Resp normal respiratory effort and clear to auscultation bilaterally Cardio regular rate, regular rhythm and no murmurs GI non-tender Inspection: abdominal distention Auscultation: hyperactive bowel sounds Palpation: tender; Negative for guarding Extremity normal to inspection Neuro Neuro Narrative: Somnolent, arouses to verbal stimuli. Confused. No focal deficits appreciated. Skin no rashes or lesions noted and no wounds MDM MDM MDM Narrative Medical decision making narrative: Patient evaluated for low blood pressures, generalized weakness increased confusion in the TCU. He also had a possible ileus with concern for early obstruction however CT could not be obtained from the TCU due to insurance issues. Patient is confused but is also hard of hearing in the emergency room. CBC shows a stable hemoglobin of 8.4. CMP does have slightly worsening creatinine of 1.48 however he does not have an CHEYANNE. His AST and ALT are trending up. Patient does not have any right upper quadrant abdominal pain. BNP is mildly elevated at 123.7. Urinalysis shows 1+ bacteria but no white blood cells. Low suspicion for infection. Patient's blood pressure is normal in the ER. CT of the chest as well as abdomen pelvis shows bilateral pleural effusions with atelectasis however there is no report of any pneumonia. In addition patient has signs of anasarca as well as ascitic fluid in the left upper abdomen. Case discussed with TCU physician who feels that the patient is too complex for the TCU to be admitted back to the medicine floor. Extensive discussion had with the patient's family as well as the patient and at this point the patient and his want to continue him being a full code and to seek further treatment. His especially is quite insistent on this. Patient be admitted to the hospitalist service. Initially patient was receiving maintenance fluids in the ER due to report of hypotension however with pleural effusions and anasarca on exam and normal blood pressures in the ER patient is given a dose of Lasix. Lab Data Attestation: I reviewed the patient's lab results. Labs: Laboratory Results - last 24 hr 12/17/21 12/17/21 12/17/21 23:20 23:30 23:30 WBC 6.1 RBC 2.66 L Hgb 8.4 L Hct 26.3 L MCV 98.9 H MCH 31.6 MCHC 31.9 L RDW Std Deviation 64.2 H RDW Coeff of Jesu 17.6 H Plt Count 78 L MPV 12.2 H Immature Gran % (Auto) 1.300 H Neut % (Auto) 67.1 Lymph % (Auto) 13.4 L [place] % (Auto) 15.3 H Eos % (Auto) 2.1 Baso % (Auto) 0.8 Absolute Neuts (auto) 4.1 Absolute Lymphs (auto) 0.81 L Nucleated RBC % 0 Differential Comment SCANNED Atypical Lymphocytes 1+ Platelet Estimate MOD DEC Sodium 141 Potassium 4.5 Chloride 113 H Carbon Dioxide 23.0 Anion Gap 5 BUN 51 H Creatinine 1.48 H Estim Creat Clear Calc 38.60 Est GFR (MDRD) Af Amer 58 L Est GFR (MDRD) Non-Af 48 L BUN/Creatinine Ratio 34.5 H Glucose 110 H Lactic Acid Calcium 8.0 L Total Bilirubin 1.30 H AST 144 H ALT 85 H Alkaline Phosphatase 237 H Troponin I High Sens 28 B-Natriuretic Peptide 123.7 H Total Protein 5.3 L Albumin 1.7 L Globulin 3.6 Albumin/Globulin Ratio 0.5 L Lipase 95 Urine Color Urine Clarity Urine pH Ur Specific [place] Urine Protein Urine Glucose (UA) Urine Ketones Urine Occult Blood Urine Nitrite Urine Bilirubin Urine Urobilinogen Ur Leukocyte Esterase Urine RBC Urine WBC Ur Squamous Epith Cells Urine Bacteria Urine Mucus 12/17/21 12/18/21 23:30 00:06 WBC RBC Hgb Hct MCV MCH MCHC RDW Std Deviation RDW Coeff of Jesu Plt Count MPV Immature Gran % (Auto) Neut % (Auto) Lymph % (Auto) [place] % (Auto) Eos % (Auto) Baso % (Auto) Absolute Neuts (auto) Absolute Lymphs (auto) Nucleated RBC % Differential Comment Atypical Lymphocytes Platelet Estimate Sodium Potassium Chloride Carbon Dioxide Anion Gap BUN Creatinine Estim Creat Clear Calc Est GFR (MDRD) Af Amer Est GFR (MDRD) Non-Af BUN/Creatinine Ratio Glucose Lactic Acid 1.5 Calcium Total Bilirubin AST ALT Alkaline Phosphatase Troponin I High Sens B-Natriuretic Peptide Total Protein Albumin Globulin Albumin/Globulin Ratio Lipase Urine Color Yellow Urine Clarity Clear Urine pH 5.0 Ur Specific [place] 1.015 Urine Protein 15 H Urine Glucose (UA) Normal Urine Ketones Negative Urine Occult Blood Negative Urine Nitrite Negative Urine Bilirubin Negative Urine Urobilinogen 1 H Ur Leukocyte Esterase 25 H Urine RBC 0-5 SEEN Urine WBC 0 SEEN Ur Squamous Epith Cells 0 SEEN Urine Bacteria 1+ Urine Mucus 0 SEEN Radiography Diagnostic Testing: Clinical Impression(s) from Imaging Studies Abdomen/Pelvis CT 12/17/21 23:16 IMPRESSION: Nonspecific stranding/inflammation in the presacral region. No bowel obstruction or focal inflammatory process throughout the gastrointestinal tract. Status post cholecystectomy. Splenomegaly. Tiny cyst in the upper pole of the right kidney, otherwise unremarkable abdominal viscera. Severe hypertrophy of bilateral adrenal glands, etiology indeterminate. Mild ascitic fluid predominantly in the left upper abdomen along the upper greater curvature of the stomach and fundal region. Electronically Signed: Shonna Cobos MD at 0:17 EDT Reading Location ID and State: [id number] , Service support , Chest CT 12/17/21 23:16 IMPRESSION: Bilateral lower lobe atelectasis with pleural effusions. Possible minimal bilateral bronchiectasis. Cardiomegaly. Mild free fluid in the left upper abdomen. Adrenal hypertrophy. Electronically Signed: Shonna Cobos MD at 0:20 EDT , Rhythm Strip Rhythm Strip: A-fib Rate: 69 Ectopy: None EKG Initial EKG: Attestation: I personally reviewed and interpreted this EKG as follows: Interpretation: Atrial Flutter Comments: Atrial flutter with variable AV block at a rate of 69 bpm Left axis deviation Low voltage QRS Nonspecific T wave abnormalities Normal QRS and QTc Compared to prior EKG on 12/09/2021, no significant changes Prior: Unchanged Discharge Plan Dx/Rx/DC Orders Clinical Impression: Pleural effusion, Ascites, Acute kidney insufficiency, Fatigue Disposition Disposition: Acute Care Hospital [facility]
[2021-12-17 23:45] LABS: Absolute Lymphocyte Count 0.81 X10^3/uL (0.83-4.51); Absolute Neutrophil Count 4.1 X10^3/uL (2.0-7.7); Basophil# 0.05 X10^3/uL; Basophil% 0.8 % (0-1); Eosinophil# 0.13 X10^3/uL; Eosinophils% 2.1 % (0-5); Hematocrit 26.3 % (40-54); Hemoglobin 8.4 g/dL (13.0-16.5); Lymphocyte # 0.81 X10^3/ul (0.83-4.51); Lymphocyte % 13.4 % (19-41); Mean Corp Hgb Conc 31.9 g/dL (32-36); Mean Corpuscular Hgb 31.6 pg (27.0-32.0); Mean Corpuscular Volume 98.9 fL (80-94); Mean Platelet Vol. 12.2 fl (6.2-12.0); Monocyte# 0.93 X10^3/uL; Monocyte% 15.3 % (0-10); NRBC Flagged by Analyzer 0 % (0-5); Neutrophil # 4.06 X10^3/uL (2.7-7.7); Neutrophil % 67.1 % (47-70); POSITIVE COUNT YES; POSITIVE MORPHOLOGY YES; Platelet Count 78 K/mm3 (150-450); RBC Distribution Width CV 17.6 % (11.6-14.6); RBC Distribution Width SD 64.2 fl (35.1-43.9); Red Blood Count 2.66 M/mm3 (4.6-6.2); White Blood Count 6.1 K/mm3 (4.4-11.0)
[2021-12-17 23:46] LABS: Differential Indicated SCAN CRITERIA MET
[2021-12-18] VITALS (15 sets, daily range): BP systolic 86–120; BP diastolic 44–74; PULSE 65–79; RESP 16–35; TEMP 36.6–37.5; O2SAT 92–100; BMI 30.2
[2021-12-18 00:02] LABS: Lactic Acid 1.5 mmol/L (0.4-1.9)
[2021-12-18 00:04] LABS: ALB/GLOB Ratio 0.5 RATIO (0.9-2.4); AST(SGOT) 144 U/L (15-37); Alanine Aminotransfer ALT/SGPT 85 U/L (16-61); Albumin, Serum 1.7 g/dL (3.2-5.0); Alkaline Phosphatase 237 U/L (45-117); Anion Gap 5 (5-15); BUN 51 mg/dL (7-18); BUN/Creat Ratio 34.5 RATIO (10-20); Chloride 113 mmol/L (98-107); Creatinine, Serum 1.48 mg/dL (0.70-1.30); EST Glomerular Filtration Rate 48 mL/min (>60); Est Glom Filt Rate - Afr Amer 58 mL/min (>60); Globulin 3.6 g/dL (2.2-4.2); Glucose 110 mg/dL (74-106); Lipase 95 U/L (73-393); Potassium 4.5 mmol/L (3.5-5.1); Protein, Total 5.3 g/dL (6.4-8.2); Sodium Level 141 mmol/L (136-145); Troponin-I HS 28 pg/mL (3.0-78.0)
[2021-12-18 00:10] LABS: Mucous, Urine 0 SEEN /hpf (<or=2+); Squamous Epithelial Cells - UA 0 SEEN /hpf (0-5); White Blood Cells 0 SEEN /hpf (0-5)
[2021-12-18 00:13] LABS: Color, Urine Yellow (Yellow); Glucose, Dipstick Normal (Normal); Ketone-Dipstick Negative (Negative); Leukocyte Esterase-Dipstick 25 /ul (Negative); Nitrite-Dipstick Negative (Negative); Occult Blood-Urine Negative /ul (Negative); Protein-Dipstick 15 mg/dl (Negative); Specific Gravity, Urine 1.015 (1.002-1.030); Urine Bilirubin Dipstick Negative (Negative); Urine Clarity Clear (Clear); Urine Urobilinogen 1 mg/dl (Normal)
[2021-12-18 00:19] LABS: Atypical Lymphocyte 1+ %; Differential Comment SCANNED; Platelet Estimate MOD DEC (ADEQ)
[2021-12-18 00:22] LABS: Bacteria 1+ /hpf (None Seen); Red Blood Cells-Urine 0-5 SEEN /hpf (0-5)
[2021-12-18 00:45] LABS: BNP,B-Type NATRIURETIC PEPTIDE 123.7 pg/mL (0-100)
--- NOTE | 2021-12-18 01:36 | ED.RN ---
TCU attempted to call pts numerous times no answer. This nurse attempted to call pts . No answer.
--- NOTE | 2021-12-18 03:46 | PCM.HP.STD ---
HPI - General General Date of Admission: 12/18/21 Date of Service: 12/18/21 Chief Complaint: malaise. HPI Narrative ASIA WILSON, is a 86 M who presents to the emergency room from the transitional care unit. While at the TCU, patient was feeling sick, is having hypoglycemia, abdominal issues along with that. He had a x-ray that showed an ileus and possible pneumonia. He then was started on levofloxacin. Blood pressure was low and since I could not get approval for CAT scans from the transitional care unit he was sent to the emergency room. In the emergency room, his blood pressure remained stable, CT of his chest showed bilateral lobe atelectasis with pleural effusions with possible minimal bilateral bronchiectasis. Mild free fluid in the left upper abdomen. CT abdomen pelvis showed nonspecific stranding inflammation in the presacral region. No bowel obstruction or focal inflammatory process throughout the GI tract. Patient did receive some fluids and then furosemide in the emergency room for the pleural effusions and ascites. To try to see the get the patient back to the transitional care unit but the request was declined due to the patient's overall complexity. [facility] Medical History (Updated 12/18/21 @ 03:[address] Wei Brown, DO) Arthritis Atherosclerotic heart disease of [place] coronary artery without angina pectoris Atrial flutter Dysphagia Encounter for screening for COVID-19 Essential hypertension Heart disease Hypertension Preoperative cardiovascular examination Presence of stent in coronary artery (~01/13/01) Pure hypercholesterolemia Rheumatic fever Shortness of breath URI (upper respiratory infection) Home Medications aspirin 81 mg tablet,delayed release (Adult Aspirin Regimen) 81 mg PO DAILY Heart health 01/23/21 [History Last Taken Unknown] atorvastatin 40 mg tablet 40 mg PO DAILY Cholestrol 01/23/21 [History Last Taken Unknown] levothyroxine 125 mcg tablet (Euthyrox) 125 mcg PO DAILY Thyroid 01/23/21 [History Last Taken Unknown] ascorbic acid (vitamin C) 500 mg tablet 500 mg PO DAILY Supplement 07/07/21 [History Last Taken Unknown] cholecalciferol (vitamin D3) 25 mcg (1,000 unit) tablet 25 mcg PO DAILY Supplement 07/07/21 [History Last Taken Unknown] multivitamin 1 tab PO DAILY Supplement 07/07/21 [History Last Taken Unknown] omega 3-qwj-muf-fish oil 60 mg-90 mg-500 mg capsule (Fish Oil) 1 cap PO DAILY Supplement 07/09/21 [History Last Taken Unknown] allopurinol 300 mg tablet 150 mg PO DAILY Gout 08/20/21 [History Last Taken Unknown] lactobacillus combination no.4 3 billion cell capsule (Probiotic) 3,000 mmu cells PO DAILY Supplement 12/09/21 [History Last Taken Unknown] levofloxacin 750 mg/150 mL in 5 % dextrose intravenous piggyback 750 mg IV Q48H 12/17/21 [History Last Taken Unknown] polysaccharide iron complex 150 mg iron capsule (Ferrex) 150 mg PO DAILY 12/17/21 [History Last Taken Unknown] Allergy/AdvReac Type Severity Reaction Status Date / Time adhesive tape Allergy Mild RASH Verified 12/17/21 22:59 iodine Allergy Mild UNKNOWN Verified 12/17/21 22:59 Family History Father Myocardial infarction, Onset Age: 46 Surgical History History of carpal tunnel release History of cholecystectomy Presence of coronary angioplasty implant and graft (~01/13/01) Social History household members: spouse Smoking Status: Never smoker alcohol intake: never substance use type: does not use caffeine: Yes Type: coffee Number of servings: 1 ROS ROS Narrative Patient denies any abdominal pain, chest pain, shortness of breath. Does have lower extremity edema. All review of systems were negative except as mentioned above in the history of present illness and the other review of systems. Vital Signs Vital Signs Vital Signs: 12/17/21 23:00 12/17/21 23:05 12/17/21 22:58 Temperature 36.7 C Temperature Source Oral Pulse Rate 69 Respiratory Rate 15 Respiratory Effort Normal Non-Labored Respiratory Pattern Normal Blood Pressure 107/54 L Blood Pressure Mean 71 Pulse Ox 97 Oxygen Delivery Method Room Air 12/17/21 23:04 12/18/21 00:58 12/18/21 02:00 Temperature 36.7 C Temperature Source Oral Pulse Rate 69 73 77 Respiratory Rate 15 16 18 Respiratory Effort Respiratory Pattern Blood Pressure 107/54 L 108/51 L 103/73 Blood Pressure Mean 71 70 83 Pulse Ox 97 98 97 Oxygen Delivery Method Room Air Room Air Room Air 12/18/21 02:04 Temperature 36.6 C Temperature Source Temporal Pulse Rate 77 Respiratory Rate 18 Respiratory Effort Respiratory Pattern Blood Pressure 103/73 Blood Pressure Mean 83 Pulse Ox 97 Oxygen Delivery Method Room Air Weight Weight: 104.3 kg Body Mass Index (BMI) 31.1 Physical Exam Const alert and no apparent distress Constitutional Narrative: No respiratory distress. No conversational dyspnea. Patient is sitting up in bed and he is hard of hearing but is cooperative. HEENT normocephalic and head/scalp atraumatic Eyes Eyes Narrative: Mucous membranes are dry. Neck no lymphadenopathy Neck Narrative: No JVD Resp normal respiratory effort, no retractions, no use of accessory muscles and clear to auscultation bilaterally Cardio regular rate, regular rhythm, S1 normal heart sound and S2 normal heart sound GI normal to inspection, nondistended, normoactive bowel sounds, soft to palpation and non-tender GI Narrative: No fluid wave Extremity Extremity Narrative: Venous stasis changes but no lower extremity edema. Skin Skin Narrative: Scabs over his anterior shins. No evidence of cellulitis. Neuro Neuro Narrative: Alert to place. Did not know the month but knew the year. Sensorium / Orientation: awake and alert Psych affect normal Results Lab / Micro Data Attestation: I reviewed the patient's lab results. Result Diagrams: 12/17/21 23:30 12/17/21 23:30 Labs: Laboratory Results - last 24 hr 12/17/21 23:20: B-Natriuretic Peptide 123.7 H 12/17/21 23:30: WBC 6.1, RBC 2.66 L, Hgb 8.4 L, Hct 26.3 L, MCV 98.9 H, MCH 31.6, MCHC 31.9 L, RDW Std Deviation 64.2 H, RDW Coeff of Jesu 17.6 H, Plt Count 78 L, MPV 12.2 H, Immature Gran % (Auto) 1.300 H, Neut % (Auto) 67.1, Lymph % (Auto) 13.4 L, [place] % (Auto) 15.3 H, Eos % (Auto) 2.1, Baso % (Auto) 0.8, Absolute Neuts (auto) 4.1, Absolute Lymphs (auto) 0.81 L, Nucleated RBC % 0, Differential Comment SCANNED, Atypical Lymphocytes 1+, Platelet Estimate MOD DEC 12/17/21 23:30: Sodium 141, Potassium 4.5, Chloride 113 H, Carbon Dioxide 23.0, Anion Gap 5, BUN 51 H, Creatinine 1.48 H, Estim Creat Clear Calc 38.60, Est GFR (MDRD) Af Amer 58 L, Est GFR (MDRD) Non-Af 48 L, BUN/Creatinine Ratio 34.5 H, Glucose 110 H, Calcium 8.0 L, Total Bilirubin 1.30 H, AST 144 H, ALT 85 H, Alkaline Phosphatase 237 H, Troponin I High Sens 28, Total Protein 5.3 L, Albumin 1.7 L, Globulin 3.6, Albumin/Globulin Ratio 0.5 L, Lipase 95 12/17/21 23:30: Lactic Acid 1.5 12/18/21 00:06: Urine Color Yellow, Urine Clarity Clear, Urine pH 5.0, Ur Specific [place] 1.015, Urine Protein 15 H, Urine Glucose (UA) Normal, Urine Ketones Negative, Urine Occult Blood Negative, Urine Nitrite Negative, Urine Bilirubin Negative, Urine Urobilinogen 1 H, Ur Leukocyte Esterase 25 H, Urine RBC 0-5 SEEN, Urine WBC 0 SEEN, Ur Squamous Epith Cells 0 SEEN, Urine Bacteria 1+, Urine Mucus 0 SEEN Rhythm Strip Rhythm Strip: A-fib Rate: 69 Ectopy: None Radiology Impression Abdomen/Pelvis CT 12/17/21 23:16 IMPRESSION: Nonspecific stranding/inflammation in the presacral region. No bowel obstruction or focal inflammatory process throughout the gastrointestinal tract. Status post cholecystectomy. Splenomegaly. Tiny cyst in the upper pole of the right kidney, otherwise unremarkable abdominal viscera. Severe hypertrophy of bilateral adrenal glands, etiology indeterminate. Mild ascitic fluid predominantly in the left upper abdomen along the upper greater curvature of the stomach and fundal region. Electronically Signed: Shonna Cobos MD at 0:17 EDT , Chest CT 12/17/21 23:16 IMPRESSION: Bilateral lower lobe atelectasis with pleural effusions. Possible minimal bilateral bronchiectasis. Cardiomegaly. Mild free fluid in the left upper abdomen. Adrenal hypertrophy. Electronically Signed: Shonna Cobos MD at 0:20 EDT , Assessment & Plan Assessment/Plan (1) Dehydration: PLAN: Despite the patient's pleural effusion and ascites, patient clinically is dry. He has no JVD and has no lower extremity edema. Will give patient IV fluids. Initially I am giving furosemide but with his blood pressure being low previously that may be due to volume depletion. 1 L of IV fluids (2) Ascites: PLAN: This is likely culmination of numerous factors: Including pulmonary hypertension, with RVSP of 62 mmHg from echo on 08/06/2021, severe protein calorie malnutrition. Cannot rule out a hepatic process. No diuretics at this time. See #1. With the ascites and his elevated liver transaminases, as well as an elevated INR while not being on warfarin, check an ultrasound of his liver. (3) Pleural effusion: PLAN: Etiology may be the same as for the ascites. Patient is on room air and in no respiratory distress. Supportive management (4) Severe protein-calorie malnutrition: PLAN: Consult nutrition Supplements (5) Debility: PLAN: PT OT evaluate and treat Patient will require [place] upon discharge. (6) Dysphagia: PLAN: Had a modified barium swallow on the . Continue with pur?ed textures as well as thin liquids (7) Gastrointestinal bleed: PLAN: Patient had a colonoscopy on the that showed a single bleeding colonic angiodysplastic lesion that was treated with heater probe. His hemoglobin is currently stable PLAN: Plan Chronic conditions Pulmonary hypertension, likely type III due to untreated sleep apnea. Complicates care. Obstructive sleep apnea: Not on CPAP by choice Hyperlipidemia: Hold statin given he abnormal LFTs Hypothyroidism: Continue with levothyroxine VTE prophylaxis: With SCDs. Chemical prophylaxis contraindicated given patient's recent GI bleed. Advance care planning: Spent an additional 16 minutes discussing with the patient family at bedside. Conferred with him that the patient is to be full code with the patient. Charges/Coding Visit Charges Inpatient E&M: 76513 Init Hosp L3
[2021-12-18] MEDS: Furosemide 40 MG/4 ML Vial IV (03:56)
--- NOTE | 2021-12-18 04:15 | US_ITS ---
STUDY: ABDOMINAL ULTRASOUND - RIGHT UPPER QUADRANT REASON FOR VISIT: Male, 86 years old ascites ON CT -- ABN LABS TECHNIQUE: Ultrasound evaluation of the right upper quadrant was performed with real-time and static fiore-scale imaging. TECHNICAL QUALITY: Limited. Examination limited by bowel gas. COMPARISON: Comparison is made with prior CT scan of the abdomen and pelvis dated 12/17/2021. FINDINGS: Liver: The liver measures 16.7 cm. There is normal echogenicity of the liver. The bile ducts are within normal limits. There is hepatic color flow. The direction of portal flow is hepatopetal. There is no demonstrated mass lesion. Gallbladder: The patient is status post cholecystectomy. Common Bile Duct (C.B.D.): The common bile duct measures 5 mm. Pancreas: There is nonvisualization of the pancreas due to overlying bowel gas. Right Kidney: Normal size of the right kidney. The right kidney measures 10.4 cm x 6.1 cm x 5.4 cm. Normal renal cortex. The right cortex measures 1.9 cm. There is no demonstrated renal mass or cyst. There is no right hydronephrosis. Slight amount of free fluid is seen in the left lower quadrant. US/Abdomen Limited IMPRESSION: Status post cholecystectomy. Minimal amount of free fluid is seen in the left lower quadrant. Electronically Signed: Rob Hurst MD at 10:09 EDT ,
[2021-12-18] MEDS: 0.9% Normal Saline 1,000 ML 150 ML IV (04:48)
[2021-12-18] MEDS: Levothyroxine 125 MCG Tablet PO (05:46)
[2021-12-18 05:59] LABS: Absolute Neutrophil Count 4.7 X10^3/uL (2.0-7.7); Basophil# 0.04 X10^3/uL; Basophil% 0.6 % (0-1); Differential Indicated SCAN CRITERIA MET; Eosinophil# 0.12 X10^3/uL; Eosinophils% 1.8 % (0-5); Hematocrit 24.6 % (40-54); Lymphocyte % 11.8 % (19-41); Mean Corp Hgb Conc 32.5 g/dL (32-36); Mean Corpuscular Hgb 32.4 pg (27.0-32.0); Mean Corpuscular Volume 99.6 fL (80-94); Monocyte# 1.02 X10^3/uL; NRBC Flagged by Analyzer 0 % (0-5); Neutrophil # 4.72 X10^3/uL (2.7-7.7); Neutrophil % 69.6 % (47-70); POSITIVE COUNT YES; POSITIVE MORPHOLOGY YES; Platelet Count 85 K/mm3 (150-450); RBC Distribution Width CV 17.3 % (11.6-14.6); RBC Distribution Width SD 63.6 fl (35.1-43.9); Red Blood Count 2.47 M/mm3 (4.6-6.2); White Blood Count 6.8 K/mm3 (4.4-11.0)
[2021-12-18 06:04] LABS: International Normalized Ratio 1.7; Prothrombin Time (Protime)PT. 19.5 SECONDS (11.7-14.9)
[2021-12-18 06:20] LABS: Differential Comment SCANNED
[2021-12-18 06:21] LABS: Atypical Lymphocyte 1+ %; Hypochromasia 1+; Platelet Estimate MOD DEC (ADEQ)
[2021-12-18 06:25] LABS: ALB/GLOB Ratio 0.5 RATIO (0.9-2.4); AST(SGOT) 125 U/L (15-37); Alanine Aminotransfer ALT/SGPT 78 U/L (16-61); Albumin, Serum 1.7 g/dL (3.2-5.0); Alkaline Phosphatase 246 U/L (45-117); Anion Gap 5 (5-15); BUN 52 mg/dL (7-18); BUN/Creat Ratio 35.4 RATIO (10-20); Calcium,Total 8.2 mg/dL (8.5-10.1); Chloride 115 mmol/L (98-107); Creatinine, Serum 1.47 mg/dL (0.70-1.30); EST Glomerular Filtration Rate 48 mL/min (>60); Est Glom Filt Rate - Afr Amer 58 mL/min (>60); Estimated Creatinine Clearance 37.71 ml/min; Globulin 3.7 g/dL (2.2-4.2); Glucose 111 mg/dL (74-106); Potassium 4.5 mmol/L (3.5-5.1); Protein, Total 5.4 g/dL (6.4-8.2); Sodium Level 143 mmol/L (136-145)
[2021-12-18] MEDS: Ascorbic Acid 500 MG Tablet PO (09:55)
[2021-12-18] MEDS: Allopurinol 300 MG Tablet 150 MG PO (09:56)
[2021-12-18] MEDS: Multivitamins,Therapeutic Tablet 1 TABLET PO (09:57)
[2021-12-18] MEDS: Ensure Clear 120 ML Liquid PO ×2 (09:58→11:52)
[2021-12-18] MEDS: Cholecalciferol (VIT D3) 25 MCG TABLET (1,000 UNITS) PO (09:58)
--- NOTE | 2021-12-18 11:49 | PN.HOSP_ITS ---
Subjective Subjective Follow-up on ascites/pleural effusion/debility: Patient seen and examined. He is alert oriented only to his self. No acute events overnight. Objective Data Objective Data Vital Signs: Vital Signs Temp Pulse Resp BP Pulse Ox O2 Del Method 98.4 F 72 18 106/47 L 92 Room Air 12/18/21 09:49 12/18/21 09:49 12/18/21 09:49 12/18/21 09:49 12/18/21 09:49 12/18/21 09:50 Oxygen Delivery Method Room Air Weight: 98.4 kg Body Mass Index (BMI) 30.2 Intake & Output: Intake and Output for Last 24 Hours 12/16/21 12/17/21 12/18/21 23:59 23:59 23:59 Intake Total 865 / 865 Balance 865 / 865 Lab / Micro Data Result Diagrams: 12/18/21 05:42 12/18/21 05:42 Labs: Laboratory Results - last 24 hr 12/17/21 23:20: B-Natriuretic Peptide 123.7 H 12/17/21 23:30: WBC 6.1, RBC 2.66 L, Hgb 8.4 L, Hct 26.3 L, MCV 98.9 H, MCH 31.6, MCHC 31.9 L, RDW Std Deviation 64.2 H, RDW Coeff of Jesu 17.6 H, Plt Count 78 L, MPV 12.2 H, Immature Gran % (Auto) 1.300 H, Neut % (Auto) 67.1, Lymph % (Auto) 13.4 L, [place] % (Auto) 15.3 H, Eos % (Auto) 2.1, Baso % (Auto) 0.8, Absolute Neuts (auto) 4.1, Absolute Lymphs (auto) 0.81 L, Nucleated RBC % 0, Differential Comment SCANNED, Atypical Lymphocytes 1+, Platelet Estimate MOD DEC 12/17/21 23:30: Sodium 141, Potassium 4.5, Chloride 113 H, Carbon Dioxide 23.0, Anion Gap 5, BUN 51 H, Creatinine 1.48 H, Estim Creat Clear Calc 38.60, Est GFR (MDRD) Af Amer 58 L, Est GFR (MDRD) Non-Af 48 L, BUN/Creatinine Ratio 34.5 H, Glucose 110 H, Calcium 8.0 L, Total Bilirubin 1.30 H, AST 144 H, ALT 85 H, Alkaline Phosphatase 237 H, Troponin I High Sens 28, Total Protein 5.3 L, Albumin 1.7 L, Globulin 3.6, Albumin/Globulin Ratio 0.5 L, Lipase 95 12/17/21 23:30: Lactic Acid 1.5 12/18/21 00:06: Urine Color Yellow, Urine Clarity Clear, Urine pH 5.0, Ur Specific Rob[place] 1.015, Urine Protein 15 H, Urine Glucose (UA) Normal, Urine Ketones Negative, Urine Occult Blood Negative, Urine Nitrite Negative, Urine Bilirubin Negative, Urine Urobilinogen 1 H, Ur Leukocyte Esterase 25 H, Urine RBC 0-5 SEEN, Urine WBC 0 SEEN, Ur Squamous Epith Cells 0 SEEN, Urine Bacteria 1+, Urine Mucus 0 SEEN 12/18/21 05:42: WBC 6.8, RBC 2.47 L, Hgb 8.0 L, Hct 24.6 L, MCV 99.6 H, MCH 32.4 H, MCHC 32.5, RDW Std Deviation 63.6 H, RDW Coeff of Jesu 17.3 H, Plt Count 85 L, MPV 11.0, Immature Gran % (Auto) 1.200 H, Neut % (Auto) 69.6, Lymph % (Auto) 11.8 L, [place] % (Auto) 15.0 H, Eos % (Auto) 1.8, Baso % (Auto) 0.6, Absolute N euts (auto) 4.7, Absolute Lymphs (auto) 0.80 L, Nucleated RBC % 0, Differential Comment SCANNED, Atypical Lymphocytes 1+, Platelet Estimate MOD DEC, Hypochromasia 1+ 12/18/21 05:42: PT 19.5 H, INR 1.7 12/18/21 05:42: Sodium 143, Potassium 4.5, Chloride 115 H, Carbon Dioxide 23.0, Anion Gap 5, BUN 52 H, Creatinine 1.47 H, Estim Creat Clear Calc 37.71, Est GFR (MDRD) Af Amer 58 L, Est GFR (MDRD) Non-Af 48 L, BUN/Creatinine Ratio 35.4 H, Glucose 111 H, Calcium 8.2 L, Total Bilirubin 1.50 H, AST 125 H, ALT 78 H, Alkaline Phosphatase 246 H, Total Protein 5.4 L, Albumin 1.7 L, Globulin 3.7, Albumin/Globulin Ratio 0.5 L Radiography Diagnostic Testing: Radiology Impression Abdomen/Pelvis CT 12/17/21 23:16 IMPRESSION: Nonspecific stranding/inflammation in the presacral region. No bowel obstruction or focal inflammatory process throughout the gastrointestinal tract. Status post cholecystectomy. Splenomegaly. Tiny cyst in the upper pole of the right kidney, otherwise unremarkable abdominal viscera. Severe hypertrophy of bilateral adrenal glands, etiology indeterminate. Mild ascitic fluid predominantly in the left upper abdomen along the upper greater curvature of the stomach and fundal region. Electronically Signed: Shonna Cobos MD at 0:17 EDT , Chest CT 12/17/21 23:16 IMPRESSION: Bilateral lower lobe atelectasis with pleural effusions. Possible minimal bilateral bronchiectasis. Cardiomegaly. Mild free fluid in the left upper abdomen. Adrenal hypertrophy. Electronically Signed: Shonna Cobos MD at 0:20 EDT , Abdomen Ultrasound 12/18/21 04:15 IMPRESSION: Status post cholecystectomy. Minimal amount of free fluid is seen in the left lower quadrant. Electronically Signed: Rob Hurst MD at 10:09 EDT , Rhythm Strip Rhythm Strip: A-fib Rate: 69 Ectopy: None Physical Exam Narrative Physical exam: General: Alert, Oriented x1, to self, Cooperative, appears very frail HEENT: Atraumatic Oral: Moist Mucosa Neck: Supple Lungs: Diminished to auscultation Cardiovascular: HS I+II, regular, no murmurs Abdomen: Bowel Sounds Present, Soft, Non Tender Extremities: Bilateral leg edema +2 with chronic venous stasis dermatitis Skin: See above Neurological: Grossly intact Psych/Mental Status: Appropriate Assessment & Plan Assessment/Plan (1) Pleural effusion: (2) Ascites: PLAN: Plan 1. Acute metabolic encephalopathy, probably multifactorial related to dehydration, relative hypotension Patient has underlining history of cognitive impairment, is alert oriented x1 We will continue to monitor 2. Hypotension, this is not new for patient, likely worsening with dehydration Present in the last admission Improved with IV fluids, will continue to monitor 3. Diffuse ileus, seen on KUB on 12/16/21, CT of the abdomen and pelvis shows nonspecific stranding or inflammation in the presacral region, mild ascitic fluid, no bowel obstruction seen 4. Ascites/pleural effusion, etiology likely multifactorial, severe pulmonary hypertension, severe hypoalbuminemia, albumin is 1.[address] of the abdomen and pelvis as well as chest LFTs are about the same ultrasound of the abdomen pending at time of being seen 5. Anemia, chronic, secondary to recent GI bleed, Hb remained stable at 8.0 We will continue to trend 6. 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 CKD stage IIIa, creatinine remains about the same, continue to trend 8. CAD status post stent, continue on aspirin, statin, 9. Atrial flutter, persistent, not on beta-blockers on account of relative hypotension, not on anticoagulation because of fall risk and recent GI bleed 10. DVT prophylaxis?SCDs Charges/Coding Visit Charges Inpatient E&M: 21413 Subs Hosp L2
--- NOTE | 2021-12-18 13:25 | CASEMGMT ---
Patient came to [facility] acute side from [facility] TCU. SW went to patient's room to confirm his plan is to return, but patient was sleeping. SW called patient's . Introduced self and role at [facility]. SW asked if the plan is for patient to return to TCU at discharge. She said she thinks it is, but will ask him for sure. SW will try and check back in with patient again. Plan: Likely [facility] TCU Mary JIMÉNEZ
[2021-12-18] MEDS: NYSTATIN 500,000 UNIT/5 ML UDC 500000 UNIT PO ×3 (15:54→22:29)
[2021-12-19] VITALS (9 sets, daily range): BP systolic 89–122; BP diastolic 40–74; PULSE 56–75; RESP 18–22; TEMP 37–37.2; O2SAT 83–99
[2021-12-19] MEDS: Levothyroxine 125 MCG Tablet PO (05:00)
[2021-12-19 05:57] LABS: Absolute Lymphocyte Count 0.85 X10^3/uL (0.83-4.51); Absolute Neutrophil Count 3.8 X10^3/uL (2.0-7.7); Basophil# 0.04 X10^3/uL; Basophil% 0.7 % (0-1); Eosinophil# 0.08 X10^3/uL; Eosinophils% 1.4 % (0-5); Hematocrit 26.5 % (40-54); Hemoglobin 8.3 g/dL (13.0-16.5); Lymphocyte # 0.85 X10^3/ul (0.83-4.51); Lymphocyte % 14.4 % (19-41); Mean Corp Hgb Conc 31.3 g/dL (32-36); Mean Corpuscular Hgb 31.4 pg (27.0-32.0); Mean Corpuscular Volume 100.4 fL (80-94); Mean Platelet Vol. 10.5 fl (6.2-12.0); Monocyte# 1.05 X10^3/uL; Monocyte% 17.8 % (0-10); NRBC Flagged by Analyzer 0 % (0-5); Neutrophil # 3.76 X10^3/uL (2.7-7.7); Neutrophil % 63.5 % (47-70); POSITIVE COUNT YES; POSITIVE MORPHOLOGY YES; Platelet Count 80 K/mm3 (150-450); RBC Distribution Width CV 17.6 % (11.6-14.6); RBC Distribution Width SD 65.9 fl (35.1-43.9); Red Blood Count 2.64 M/mm3 (4.6-6.2); White Blood Count 5.9 K/mm3 (4.4-11.0)
[2021-12-19 06:02] LABS: Differential Indicated SCAN CRITERIA MET
[2021-12-19 06:42] LABS: Anisocytosis 1+; Differential Comment SCANNED; Hypochromasia RARE; Macrocytosis 1+; Platelet Estimate MOD DEC (ADEQ)
[2021-12-19 06:43] LABS: ALB/GLOB Ratio 0.4 RATIO (0.9-2.4); AST(SGOT) 90 U/L (15-37); Alanine Aminotransfer ALT/SGPT 59 U/L (16-61); Albumin, Serum 1.5 g/dL (3.2-5.0); Alkaline Phosphatase 231 U/L (45-117); Anion Gap 8 (5-15); BUN 53 mg/dL (7-18); BUN/Creat Ratio 39.8 RATIO (10-20); Calcium,Total 8.1 mg/dL (8.5-10.1); Chloride 116 mmol/L (98-107); Creatinine, Serum 1.33 mg/dL (0.70-1.30); EST Glomerular Filtration Rate 54 mL/min (>60); Est Glom Filt Rate - Afr Amer 65 mL/min (>60); Estimated Creatinine Clearance 41.68 ml/min; Globulin 3.5 g/dL (2.2-4.2); Glucose 111 mg/dL (74-106); Potassium 4.3 mmol/L (3.5-5.1); Sodium Level 145 mmol/L (136-145)
[2021-12-19] MEDS: Multivitamins,Therapeutic Tablet 1 TABLET PO (10:05)
[2021-12-19] MEDS: Atorvastatin Calcium 40 MG Tablet PO (10:05)
[2021-12-19] MEDS: NYSTATIN 500,000 UNIT/5 ML UDC 500000 UNIT PO ×4 (10:05→21:57)
[2021-12-19] MEDS: Iron Polysaccharide Complex 150 MG CAPSULE PO (10:05)
[2021-12-19] MEDS: Cholecalciferol (VIT D3) 25 MCG TABLET (1,000 UNITS) PO (10:06)
[2021-12-19] MEDS: Allopurinol 300 MG Tablet 150 MG PO (10:06)
[2021-12-19] MEDS: Ascorbic Acid 500 MG Tablet PO (10:06)
[2021-12-19] MEDS: Aspirin E.C. 81 MG Tablet PO (10:06)
[2021-12-19] MEDS: Ensure Clear 120 ML Liquid PO ×2 (10:16→11:43)
--- NOTE | 2021-12-19 11:42 | CASEMGMT ---
Social Work SW spoke w/pt in room, put in his hearing aides so he could hear SW. SW inquired if he would like to return to TCU when he is ready for discharge, pt confirmed that he would. SW offered pt a list of fdc facilities in the area if he would like to consider other options, pt declined list. Plan will be for pt to return to TCU when ready and new precert is attained. KAIDEN Ruth
--- NOTE | 2021-12-19 13:21 | PN.HOSP_ITS ---
Subjective Subjective Follow-up on ascites/pleural effusion/debility: Patient seen and examined.? He is alert oriented only to his self.? No acute events overnight. Objective Data Objective Data Vital Signs: Vital Signs Temp Pulse Resp BP Pulse Ox O2 Del Method 98.6 F 71 18 122/53 H 98 Room Air 12/19/21 09:59 12/19/21 09:59 12/19/21 09:59 12/19/21 09:59 12/19/21 09:59 12/19/21 09:59 Oxygen Delivery Method Room Air Weight: 98.4 kg Body Mass Index (BMI) 30.2 Intake & Output: Intake and Output for Last 24 Hours 12/17/21 12/18/21 12/19/21 23:59 23:59 23:59 Intake Total 2425 / 2425 240 / 240 Output Total 200 / 200 350 / 350 Balance 2225 / 2225 -110 / -110 Lab / Micro Data Result Diagrams: 12/19/21 05:14 12/19/21 05:14 Labs: Laboratory Results - last 24 hr 12/19/21 05:14: WBC 5.9, RBC 2.64 L, Hgb 8.3 L, Hct 26.5 L, MCV 100.4 H, MCH 31.4, MCHC 31.3 L, RDW Std Deviation 65.9 H, RDW Coeff of Jesu 17.6 H, Plt Count 80 L, MPV 10.5, Immature Gran % (Auto) 2.200 H, Neut % (Auto) 63.5, Lymph % (Auto) 14.4 L, [place] % (Auto) 17.8 H, Eos % (Auto) 1.4, Baso % (Auto) 0.7, Absolute Neuts (auto) 3.8, Absolute Lymphs (auto) 0.85, Nucleated RBC % 0, Differential Comment SCANNED, Platelet Estimate MOD DEC, Hypochromasia RARE, Anisocytosis 1+, Macrocytosis 1+ 12/19/21 05:14: Sodium 145, Potassium 4.3, Chloride 116 H, Carbon Dioxide 21.0, Anion Gap 8, BUN 53 H, Creatinine 1.33 H, Estim Creat Clear Calc 41.68, Est GFR (MDRD) Af Amer 65, Est GFR (MDRD) Non-Af 54 L, BUN/Creatinine Ratio 39.8 H, Glucose 111 H, Calcium 8.1 L, Total Bilirubin 1.40 H, AST 90 H, ALT 59, Alkaline Phosphatase 231 H, Total Protein 5.0 L, Albumin 1.5 L, Globulin 3.5, Albumin/Globulin Ratio 0.4 L Micro: Microbiology 12/18/21 00:05 Urine Catheter - Catheter Urine Culture - Preliminary Culture exhibits no growth. Rhythm Strip Rhythm Strip: A-fib Rate: 69 Ectopy: None Physical Exam Narrative Physical exam: General: Alert, Oriented x1, to self, Cooperative, appears very frail HEENT: Atraumatic Oral: Moist Mucosa Neck: Supple Lungs: Diminished to auscultation Cardiovascular: HS I+II, regular, no murmurs Abdomen: Bowel Sounds Present, Soft, Non Tender Extremities: Bilateral leg edema +2 with chronic venous stasis dermatitis Skin: See above Neurological: Grossly intact Psych/Mental Status: Appropriate Assessment & Plan Assessment/Plan (1) Pleural effusion: (2) Ascites: PLAN: Plan 1. Acute metabolic encephalopathy, probably multifactorial related to dehydration, relative hypotension Patient has underlining history of cognitive impairment, is alert oriented x1 Continue to monitor 2. Hypotension, improved with IV fluids 3. Diffuse ileus, resolved Seen on KUB on 12/16/21, CT of the abdomen and pelvis shows nonspecific stranding or inflammation in the presacral region, mild ascitic fluid, no bowel obstruction seen. Patient is tolerating a diet. 4. Ascites/pleural effusion, etiology likely multifactorial, severe pulmonary hypertension, severe hypoalbuminemia, albumin is 1.[address] of the abdomen and pelvis as well as chest LFTs are about the same Ultrasound of the abdomen was unremarkable 5. Anemia, chronic, secondary to recent GI bleed, Hb remained stable at 8.3 We will continue to trend 6. 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 CKD stage IIIa, creatinine remains about the same, continue to trend 8. CAD status post stent, continue on aspirin, statin, 9. Atrial flutter, persistent, not on beta-blockers on account of relative hypotension, not on anticoagulation because of fall risk and recent GI bleed 10. DVT prophylaxis?SCDs Charges/Coding Visit Charges Inpatient E&M: 26795 Subs Hosp L2
--- NOTE | 2021-12-19 13:42 | NURSING ---
Pt's , Kristen being verbally aggressive towards staff. yelling at this RN and emr specialist, upset that food wasn't warm and yelling at ESTIMATOR PROJECT MANAGER, Elmer. This RN ordered pt a new tray and let know it would be up as soon as possible. continuing to yell at ESTIMATOR PROJECT MANAGER and this RN. was aggressive towards ESTIMATOR PROJECT MANAGER and got closer to her while continuing to yell at ESTIMATOR PROJECT MANAGER about food, stating that it has been this way for the last 10 days and we need to do better This RN apologized for food being cold. Pt was admitted to floor yesterday 12/18. This RN told the pt's that we were doing our best and to please not yell at staff. At this time pt's yells that this RN needs to walk away from room. hogshead wrecker, Aly Phelps and Cushion Gum Applicator notified of pt's verbal aggression towards staff.
[2021-12-20] VITALS (9 sets, daily range): BP systolic 96–116; BP diastolic 48–61; PULSE 65–83; RESP 18–20; TEMP 36.3–37.1; O2SAT 96–100
[2021-12-20] MEDS: Levothyroxine 125 MCG Tablet PO (06:31)
[2021-12-20] MEDS: Allopurinol 300 MG Tablet 150 MG PO (08:55)
[2021-12-20] MEDS: Ascorbic Acid 500 MG Tablet PO (08:55)
[2021-12-20] MEDS: Iron Polysaccharide Complex 150 MG CAPSULE PO (08:55)
[2021-12-20] MEDS: Ensure Clear 120 ML Liquid PO ×2 (08:55→12:01)
[2021-12-20] MEDS: Atorvastatin Calcium 40 MG Tablet PO (08:55)
[2021-12-20] MEDS: NYSTATIN 500,000 UNIT/5 ML UDC 500000 UNIT PO ×4 (08:55→20:44)
[2021-12-20] MEDS: Cholecalciferol (VIT D3) 25 MCG TABLET (1,000 UNITS) PO (08:55)
[2021-12-20] MEDS: Multivitamins,Therapeutic Tablet 1 TABLET PO (08:55)
[2021-12-20] MEDS: Aspirin E.C. 81 MG Tablet PO (08:56)
--- NOTE | 2021-12-20 12:32 | NURSING ---
Pt continues to refuse meals. Refused both breakfast and lunch. This nurse gives him ensure clear to drink. at bedside and educated that he should drink supplements in order to replenish body after not eating. demonstrated understanding
--- NOTE | 2021-12-20 13:46 | PCM.PN.HOSP ---
Subjective Subjective Follow-up on ascites/pleural effusion/debility: Patient seen and examined.?No acute events overnight. Awaiting discharge to [facility] Objective Data Objective Data Vital Signs: Vital Signs Temp Pulse Resp BP Pulse Ox O2 Del Method O2 Flow Rate 98 F 78 20 H 114/61 96 Nasal Cannula 2 12/20/21 09:00 12/20/21 09:00 12/20/21 09:00 12/20/21 09:00 12/20/21 09:00 12/20/21 13:19 12/20/21 13:19 Oxygen Flow Rate (L/min) 2 Oxygen Delivery Method Nasal Cannula Weight: 98.4 kg Body Mass Index (BMI) 30.2 Intake & Output: Intake and Output for Last 24 Hours 12/18/21 12/19/21 12/20/21 23:59 23:59 23:59 Intake Total 2425 / 2425 640 / 640 480 / 480 Output Total 200 / 200 650 / 650 400 / 400 Balance 2225 / 2225 -10 / -10 80 / 80 Lab / Micro Data Result Diagrams: 12/19/21 05:14 12/19/21 05:14 Micro: Microbiology 12/18/21 00:05 Urine Catheter - Catheter Urine Culture - Final Culture exhibits no growth. Rhythm Strip Rhythm Strip: A-fib Rate: 69 Ectopy: None Physical Exam Narrative Physical exam: General: Alert, Oriented x1, to self, Cooperative, appears very frail HEENT: Atraumatic Oral: Moist Mucosa Neck: Supple Lungs: Diminished to auscultation Cardiovascular: HS I+II, regular, no murmurs Abdomen: Bowel Sounds Present, Soft, Non Tender Extremities: Bilateral leg edema +1 with chronic venous stasis dermatitis Skin: See above Neurological: Grossly intact Psych/Mental Status: Appropriate Assessment & Plan Assessment/Plan (1) Pleural effusion: (2) Ascites: PLAN: Plan Summary: 86-year-old male who was recently discharged on 12/12/21 to TCU after admission for acute GI bleed/severe anemia comes in with concern for ileus, confusion. A KUB done in TCU had shown probable ileus. CT scan could not be done in TCU. Patient was sent to the ED for admission. 1. Acute metabolic encephalopathy, probably multifactorial related to dehydration, relative hypotension Appears to have improved to baseline Patient has underlining history of cognitive impairment, and is alert oriented x1 Continue to monitor 2. Hypotension, resolved 3. Diffuse ileus, resolved. This was seen on KUB on 12/16/21, CT of the abdomen and pelvis shows nonspecific stranding or inflammation in the presacral region, mild ascitic fluid, no bowel obstruction seen. Patient has since tolerated a regular consistency diet. 4. Ascites/pleural effusion, etiology likely multifactorial, severe pulmonary hypertension, severe hypoalbuminemia, albumin is 1.[address] of the abdomen and pelvis as well as chest. LFTs are about the same Ultrasound of the abdomen was unremarkable 5. Anemia, chronic, secondary to recent GI bleed, Hb remained stable Continue to trend 6. 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 CKD stage IIIa, creatinine remains about the same, continue to trend 8. CAD status post stent, continue on aspirin, statin, 9. Atrial flutter, persistent, not on beta-blockers on account of relative hypotension, not on anticoagulation because of fall risk and recent GI bleed 10. DVT prophylaxis?SCDs Charges/Coding Visit Charges Inpatient E&M: 44102 Subs Hosp L2
[2021-12-20] MEDS: Acetaminophen 325 MG Tablet 650 MG PO (15:30)
[2021-12-21] VITALS (7 sets, daily range): BP systolic 105–112; BP diastolic 55–64; PULSE 76–85; RESP 18–20; TEMP 36.4–37.2; O2SAT 93–98
[2021-12-21] MEDS: Levothyroxine 125 MCG Tablet PO (05:28)
[2021-12-21 06:14] LABS: Absolute Lymphocyte Count 1.06 X10^3/uL (0.83-4.51); Absolute Neutrophil Count 4.5 X10^3/uL (2.0-7.7); Basophil# 0.05 X10^3/uL; Basophil% 0.7 % (0-1); Eosinophil# 0.09 X10^3/uL; Eosinophils% 1.3 % (0-5); Hematocrit 27.6 % (40-54); Hemoglobin 8.4 g/dL (13.0-16.5); Lymphocyte # 1.06 X10^3/ul (0.83-4.51); Lymphocyte % 15.2 % (19-41); Mean Corp Hgb Conc 30.4 g/dL (32-36); Mean Corpuscular Hgb 31.5 pg (27.0-32.0); Mean Corpuscular Volume 103.4 fL (80-94); Monocyte% 14.4 % (0-10); NRBC Flagged by Analyzer 0 % (0-5); Neutrophil # 4.51 X10^3/uL (2.7-7.7); Neutrophil % 64.8 % (47-70); POSITIVE COUNT YES; POSITIVE MORPHOLOGY YES; Platelet Count 80 K/mm3 (150-450); RBC Distribution Width CV 17.7 % (11.6-14.6); RBC Distribution Width SD 67.8 fl (35.1-43.9); Red Blood Count 2.67 M/mm3 (4.6-6.2)
[2021-12-21 06:26] LABS: ALB/GLOB Ratio 0.4 RATIO (0.9-2.4); AST(SGOT) 106 U/L (15-37); Alanine Aminotransfer ALT/SGPT 59 U/L (16-61); Albumin, Serum 1.6 g/dL (3.2-5.0); Alkaline Phosphatase 248 U/L (45-117); Anion Gap 7 (5-15); BUN 62 mg/dL (7-18); BUN/Creat Ratio 41.6 RATIO (10-20); Calcium,Total 8.3 mg/dL (8.5-10.1); Chloride 118 mmol/L (98-107); Creatinine, Serum 1.49 mg/dL (0.70-1.30); EST Glomerular Filtration Rate 47 mL/min (>60); Est Glom Filt Rate - Afr Amer 57 mL/min (>60); Globulin 3.7 g/dL (2.2-4.2); Glucose 119 mg/dL (74-106); Protein, Total 5.3 g/dL (6.4-8.2); Sodium Level 146 mmol/L (136-145)
[2021-12-21 06:39] LABS: Differential Indicated SCAN CRITERIA MET
[2021-12-21 07:18] LABS: Differential Comment SCANNED
--- NOTE | 2021-12-21 08:44 | CASEMGMT ---
Social Work Telephone call from [facility], Sandy. Sandy confirms to be able to accept patient to TCU and will start pre-cert today. Will continue to follow. Surya ZHAO, KAIDEN
[2021-12-21] MEDS: Multivitamins,Therapeutic Tablet 1 TABLET PO (09:27)
[2021-12-21] MEDS: Aspirin E.C. 81 MG Tablet PO (09:27)
[2021-12-21] MEDS: Allopurinol 300 MG Tablet 150 MG PO (09:28)
[2021-12-21] MEDS: Atorvastatin Calcium 40 MG Tablet PO (09:28)
[2021-12-21] MEDS: Ascorbic Acid 500 MG Tablet PO (09:28)
[2021-12-21] MEDS: NYSTATIN 500,000 UNIT/5 ML UDC 500000 UNIT PO (09:28)
[2021-12-21] MEDS: Cholecalciferol (VIT D3) 25 MCG TABLET (1,000 UNITS) PO (09:28)
[2021-12-21] MEDS: Iron Polysaccharide Complex 150 MG CAPSULE PO (09:28)
[2021-12-21] MEDS: Ensure Clear 120 ML Liquid PO ×2 (09:36→12:33)
--- NOTE | 2021-12-21 11:16 | CASEMGMT ---
Social Work Telephone call from [facility], Sandy. Pre-cert has been obtained. Per Dr. Aguilar patient is medically cleared. Sandy reports to only need COVID test result and then able to accept patient today if COVID results are negative. This community mental health social worker updated medical team. This community mental health social worker updated patient and patient family on above information. Patient spouse present and inquired about the [facility] for after patient discharges from TCU, if he needs more time. This community mental health social worker educated patient spouse on private pay after insurance no longer covers skilled benefit, patient spouse voiced understanding and states money is not an issue. This community mental health social worker encouraged patient spouse to keep in contact with community mental health social worker on TCU about discharge plan. Patient spouse reports main goal of patient returning to home but planning things out if we need it. Support provided. Telephone call to [facility] community mental health social workerSamreen. This community mental health social worker updated Samreen on family plan B of [facility]. Nursing to obtained COVID test PLAN: TCU pending COVID results. Surya ZHAO, JESYS-S
--- NOTE | 2021-12-21 12:40 | TREXTCAR_ITS ---
Diet Diet Order/Speech Therapy: 12/18/21 04:15 Diet: Regular - General Food consistency:: Pureed Liquid Consistency:: Regular/Thin Dietary Modifications:: No Added Salt Type of Dietary Supplement:: Ensure Pudding w/ meals Diet Comments: MOIST PUREES, 1:1 SUP/TOTAL FEED, BUILT UP UTENSILS, ASPIRATION PRECAUTIONS Routine Orders/Code Status Suppository Type: Dulcolax 10mg Suppository Frequency: Daily PRN O2 Frequency: PRN Keep PO Greater than or Equal to (%): 92 Wound(s) coccyx: Wound Type: Pressure Injury Therapies Physical Therapy: Eval and Treat Occupational Therapy: Eval and Treat Speech Therapy: Eval and Treat Problem/Diagnosis (1) Pleural effusion: Status: Acute Code(s): J90 - Pleural effusion, not elsewhere classified (2) Ascites: Status: Acute Code(s): R18.8 - Other ascites Plan 1. Acute metabolic encephalopathy, probably multifactorial related to dehydration, relative hypotension-seems to have improved to baseline 2. Hypotension, resolved 3. Diffuse ileus, resolved. 4. Ascites/pleural effusion, etiology likely multifactorial, severe pulmonary hypertension, severe hypoalbuminemia 5. Anemia, chronic, secondary to recent GI bleed 6. Chronic thrombocytopenia likely related to liver disease 7. CKD stage IIIa 8. CAD status post stent 9. Atrial flutter, persistent, not on beta-blockers on account of relative hypotension, not on anticoagulation because of fall risk and recent GI bleed 86-year-old male who was recently discharged on 12/12/21 to TCU after admission for acute GI bleed/severe anemia presented back to the hospital 12/18/2021 with concern for ileus, confusion. A KUB done in TCU had shown probable ileus.? CT scan could not be done in TCU.? Patient was sent to the ED for admission.? Diffuse ileus resolved and the CT of abdomen pelvis just showed nonspecific stranding or inflammation in the presacral region with mild ascitic fluid and no obstruction. He has been tolerating diet without significant difficulty. Additionally did have metabolic encephalopathy that was likely multifactorial but after discussing with daughter it appears he is now back to baseline which was also documented that he has a history of cognitive impairment and appear to be baseline yesterday. His ascites and pleural effusion were felt to be due to his severe pulmonary hypertension as well as severe hypoalbuminemia, LFTs were roughly unchanged ultrasound of the abdomen was unremarkable. Does have chronic anemia secondary to recent GI bleed but hemoglobin is remained stable. He improved during his hospital stay and was discharged back to TCU in stable c ondition Allergies/Procedures Done in Hospital Allergies adhesive tape Allergy (Mild, Verified 12/17/21 22:59) RASH iodine Allergy (Mild, Verified 12/17/21 22:59) UNKNOWN Type of Care/Length of Stay Estimated LOS: Convalescent Care Less Than 30 days Type of Care Needed: Skilled Rehab Potential: Good Prognosis: Good Additional Orders/Day of Discharge Day of Discharge: 12/21/21 Dietary and Speech Recommendations Dietitian Recommendations/Changes: Regular/no added salt diet with fluid restriction as needed per physician. Consistency/texture as per SEC[employer] CLASS W[employer]DER---pureed food/thin liquids currently. Will add ensure pudding TID with meals. Will continue ensure clear TID with medpass; pt appears accepting as tolerated. Discharge Plan Admission Admit Date/Time: 12/18/21 03:40 Primary Reason for Your Visit: Feeling unwell and abdominal issues Attending Provider: Julieta Aguilar Primary Care Provider: Agus Almaguer Consulting Providers: Wei Brown ; Marnie Arredondo Instructions Patient Instructions: Dehydration Additional Instructions / Restrictions: ? Continue medications as previously prescribed ? You were on Levaquin for pneumonia prior to transfer to the hospital. Today you should be due for 1 more dose of Levaquin, you do not need to remain on the inpatient side to receive this dose and can receive this when you arrive at [facility] per the discretion of Dr. Shea -For any concerning signs or symptoms please call 911 or proceed to the nearest emergency department Discharge Orders/Prescriptions Prescriptions: Continued atorvastatin 40 mg tablet 40 mg PO DAILY aspirin [Adult Aspirin Regimen] 81 mg tablet,delayed release (DR/EC) 81 mg PO DAILY levothyroxine [Euthyrox] 125 mcg tablet 125 mcg PO DAILY omega 6-ltq-xyu-fish oil [Fish Oil] 60-90-500 mg capsule 1 cap PO DAILY ascorbic acid (vitamin C) 500 mg tablet 500 mg PO DAILY cholecalciferol (vitamin D3) 25 mcg (1,000 unit) tablet 25 mcg PO DAILY multivitamin Tablet 1 tab PO DAILY allopurinol 300 mg tablet 150 mg PO DAILY Probiotic 3 billion cell Capsule 3,000 mmu cells PO DAILY Rx Instructions: administer with a meal polysaccharide iron complex [Ferrex 150] 150 mg iron Capsule 150 mg PO DAILY levofloxacin in D5W 750 mg/150 mL Piggyback 750 mg IV Q48H 1 Days Qty: 0 0RF Referrals / Follow Up: Agus Almaguer MD [Primary Care Provider] - Disposition Disposition (needs filled in before D/C Order can be placed): Senior Living Facility
--- NOTE | 2021-12-21 12:55 | DS.PCM_ITS ---
Providers Date of Admission: 12/18/21 Date of Discharge: 12/21/21 Primary Care Physician: Dr. Agus Almaguer MD Reason For Visit: ANASARCA, DEBILITY Diagnosis Discharge Diagnosis (1) Pleural effusion: Status: Acute Code(s): J90 - Pleural effusion, not elsewhere classified (2) Ascites: Status: Acute Code(s): R18.8 - Other ascites Plan 1. Acute metabolic encephalopathy, probably multifactorial related to dehydrat ion, relative hypotension-seems to have improved to baseline 2. Hypotension, resolved 3. Diffuse ileus, resolved. 4. Ascites/pleural effusion, etiology likely multifactorial, severe pulmonary hypertension, severe hypoalbuminemia 5. Anemia, chronic, secondary to recent GI bleed 6. Chronic thrombocytopenia likely related to liver disease 7. CKD stage IIIa 8. CAD status post stent 9. Atrial flutter, persistent, not on beta-blockers on account of relative hypotension, not on anticoagulation because of fall risk and recent GI bleed Medications at Discharge Home Medications aspirin 81 mg tablet,delayed release (Adult Aspirin Regimen) 81 mg PO DAILY Heart health 01/23/21 atorvastatin 40 mg tablet 40 mg PO DAILY Cholestrol 01/23/21 levothyroxine 125 mcg tablet (Euthyrox) 125 mcg PO DAILY Thyroid 01/23/21 ascorbic acid (vitamin C) 500 mg tablet 500 mg PO DAILY Supplement 07/07/21 cholecalciferol (vitamin D3) 25 mcg (1,000 unit) tablet 25 mcg PO DAILY Supplement 07/07/21 multivitamin 1 tab PO DAILY Supplement 07/07/21 omega 7-syg-tke-fish oil 60 mg-90 mg-500 mg capsule (Fish Oil) 1 cap PO DAILY Supplement 07/09/21 allopurinol 300 mg tablet 150 mg PO DAILY Gout 08/20/21 lactobacillus combination no.4 3 billion cell capsule (Probiotic) 3,000 mmu cells PO DAILY Supplement 12/09/21 polysaccharide iron complex 150 mg iron capsule (Ferrex) 150 mg PO DAILY 12/17/21 levofloxacin 750 mg/150 mL in 5 % dextrose intravenous piggyback 750 mg IV Q48H 1 day #0 mL 12/21/21 Hospital Course Summary of Care Provided Minutes Spent on Discharge: 31 Hospital Course: 86-year-old male who was recently discharged on 12/12/21 to TCU after admission for acute GI bleed/severe anemia presented back to the hospital 12/18/2021 with concern for ileus, confusion. A KUB done in TCU had shown probable ileus.? CT scan could not be done in TCU.? Patient was sent to the ED for admission.? Diffuse ileus resolved and the CT of abdomen pelvis just showed nonspecific stranding or inflammation in the presacral region with mild ascitic fluid and no obstruction. He has been tolerating diet without significant difficulty. A dditionally did have metabolic encephalopathy that was likely multifactorial but after discussing with daughter it appears he is now back to baseline which was also documented that he has a history of cognitive impairment and appear to be baseline yesterday. His ascites and pleural effusion were felt to be due to his severe pulmonary hypertension as well as severe hypoalbuminemia, LFTs were rough ly unchanged ultrasound of the abdomen was unremarkable. Does have chronic anemia secondary to recent GI bleed but hemoglobin is remained stable. He improved during his hospital stay and was discharged back to TCU in stable condition. Of note he was on Levaquin in TCU for pneumonia, due today for what appears to be 1 last dose. Can receive this dose in TCU and does not need to remain inpatient Physical Exam Const Constitutional Narrative: Tired, oriented to place HEENT normocephalic Eyes Eyes Narrative: EOM grossly intact, anicteric Neck supple Resp normal respiratory effort Resp Narrative: Somewhat just diminished at the bases but slightly poor effort Cardio regular rate and regular rhythm GI soft to palpation, non-tender and non-distended Extremity Extremity Narrative: No edema appreciated Neuro moves all extremities Neuro Narrative: No overt focal deficits appreciated Psych Psych Narrative: Cooperative Weight / BMI Weight Weight: 98.4 kg Body Mass Index (BMI) 30.2 ABG / Lab / Microbiology Data Result Diagrams: 12/21/21 05:40 12/21/21 05:40 Laboratory: Laboratory Results - last 24 hr 12/21/21 05:40: WBC 7.0, RBC 2.67 L, Hgb 8.4 L, Hct 27.6 L, MCV 103.4 H, MCH 31.5, MCHC 30.4 L, RDW Std Deviation 67.8 H, RDW Coeff of Jesu 17.7 H, Plt Count 80 L, MPV 12.0, Immature Gran % (Auto) 3.600 H, Neut % (Auto) 64.8, Lymph % (Auto) 15.2 L, [place] % (Auto) 14.4 H, Eos % (Auto) 1.3, Baso % (Auto) 0.7, Absolute Neuts (auto) 4.5, Absolute Lymphs (auto) 1.06, Nucleated RBC % 0, Differential Comment SCANNED 12/21/21 05:40: Sodium 146 H, Potassium 4.0, Chloride 118 H, Carbon Dioxide 21.0, Anion Gap 7, BUN 62 H, Creatinine 1.49 H, Estim Creat Clear Calc 37.20, Est GFR (MDRD) Af Amer 57 L, Est GFR (MDRD) Non-Af 47 L, BUN/Creatinine Ratio 41.6 H, Glucose 119 H, Calcium 8.3 L, Total Bilirubin 1.60 H, AST 106 H, ALT 59, Alkaline Phosphatase 248 H, Total Protein 5.3 L, Albumin 1.6 L, Globulin 3.7, Albumin/Globulin Ratio 0.4 L Microbiology: Microbiology 12/21/21 11:25 Nasal Secretion SARS-CoV-2 Antigen (Rapid) - Final 12/18/21 00:05 Urine Catheter - Catheter Urine Culture - Final Culture exhibits no growth. Meaningful Use Info Meaningful Use Diagnoses (Choose all that apply): None applicable Discharge Plan Admission Admit Date/Time: 12/18/21 03:40 Primary Reason for Your Visit: Feeling unwell and abdominal issues Attending Provider: Julieta Aguilar Primary Care Provider: Agus Almaguer Consulting Providers: Wei Brown ; Marnie Arredondo Instructions Patient Instructions: Dehydration Additional Instructions / Restrictions: ? Continue medications as previously prescribed ? You were on Levaquin for pneumonia prior to transfer to the hospital. Today you should be due for 1 more dose of Levaquin, you do not need to remain on the inpatient side to receive this dose and can receive this when you arrive at TCU per the discretion of Dr. Shea -For any concerning signs or symptoms please call 911 or proceed to the nearest emergency department Discharge Orders/Prescriptions Prescriptions: Continued atorvastatin 40 mg tablet 40 mg PO DAILY aspirin [Adult Aspirin Regimen] 81 mg tablet,delayed release (DR/EC) 81 mg PO DAILY levothyroxine [Euthyrox] 125 mcg tablet 125 mcg PO DAILY omega 5-yvw-rtt-fish oil [Fish Oil] 60-90-500 mg capsule 1 cap PO DAILY ascorbic acid (vitamin C) 500 mg tablet 500 mg PO DAILY cholecalciferol (vitamin D3) 25 mcg (1,000 unit) tablet 25 mcg PO DAILY multivitamin Tablet 1 tab PO DAILY allopurinol 300 mg tablet 150 mg PO DAILY Probiotic 3 billion cell Capsule 3,000 mmu cells PO DAILY Rx Instructions: administer with a meal polysaccharide iron complex [Ferrex 150] 150 mg iron Capsule 150 mg PO DAILY levofloxacin in D5W 750 mg/150 mL Piggyback 750 mg IV Q48H 1 Days Qty: 0 0RF Referrals / Follow Up: Agus Almaguer MD [Primary Care Provider] - Disposition Disposition (needs filled in before D/C Order can be placed): [facility] Charges/Coding Visit Charges Inpatient E&M: 91941 Disch Hosp
== END 2021-12-21 15:09 | disposition skilled nursing facility (03) | DRG 640 ==
LOC: ED 12-18 03:24 → PCU 12-18 03:41
PROVIDERS: Internal Medicine; Emergency Provider Emergency Medicine; PCP Family Medicine; Visit Provider Internal Medicine
DX: E86.0 Dehydration (principal); G93.41 Metabolic encephalopathy; J18.9 Pneumonia, unspecified organism; I48.92 Unspecified atrial flutter; J90 Pleural effusion, not elsewhere classified; K56.7 Ileus, unspecified; R18.8 Other ascites; I27.23 Pulmonary hypertension due to lung diseases and hypoxia; E88.09 Other disorders of plasma-protein metabolism, not elsewhere classified; I95.9 Hypotension, unspecified; N18.31 Chronic kidney disease, stage 3a; J47.9 Bronchiectasis, uncomplicated; I25.10 Atherosclerotic heart disease of native coronary artery without angina pectoris; E03.9 Hypothyroidism, unspecified; E78.00 Pure hypercholesterolemia, unspecified; K76.9 Liver disease, unspecified; D69.59 Other secondary thrombocytopenia; I12.9 Hypertensive chronic kidney disease with stage 1 through stage 4 chronic kidney disease, or unspecified chronic kidney disease; G47.33 Obstructive sleep apnea (adult) (pediatric); R13.10 Dysphagia, unspecified; Z79.82 Long term (current) use of aspirin; R79.1 Abnormal coagulation profile; Z20.822 Contact with and (suspected) exposure to COVID-19; Z79.890 Hormone replacement therapy; Z79.899 Other long term (current) drug therapy; Z95.5 Presence of coronary angioplasty implant and graft; R06.02 Shortness of breath; R13.12 Dysphagia, oropharyngeal phase
CPT/HCPCS: 36415; 71250; 74176; 76705; 80053; 81001; 83605; 83690; 83880; 84484; 85025; 85610; 87086; 87426; 92507; 92526; 92610; 93005; 97110; 97162; 97166; 97530; 97535; 97802; 99282; J7030; A4216; J1940

== ENCOUNTER 2021-12-21 15:30 | Inpatient (IN) | payer MEDICARE, SELFPAY ==
[2021-12-21 15:34] VITALS: BP 110/61; PULSE 83; RESP 30; TEMP 36.9; O2SAT 99
[2021-12-21 15:43] VITALS: BMI 28.5
[2021-12-21 16:09] VITALS: PULSE 82; RESP 18; O2SAT 99
[2021-12-21] MEDS: Menthol/Lanolin/Calamine/Znox 113 GM Tube 1 APPLIC TOPICAL (17:44)
[2021-12-21] MEDS: Ensure Plus High Protein 120 ML LIQUID PO (17:45)
--- NOTE | 2021-12-21 17:49 | NURSING ---
discussed code status with , wants pt to remain full code.
--- NOTE | 2021-12-21 19:03 | PCM.HP.STD ---
HPI - General General Date of Admission: 12/21/21 Date of Service: 12/21/21 Chief Complaint: Here for rehab. HPI Narrative ASIA WILSON, is a 86 Male who presents with followin12/17/2021 Presented to [facility] Emergency Department with generalized illness. 12/17/2021 EKG Atrial Flutter with variable AV block, left axis deviation, low voltage QRS, nonspecific T wave abnormality. TCU resident, hypotensive, KUB ileus, Chest X-ray pneumonia. Patient desires comfort care, insists aggressive treatment. 12/18/2021 Admit to Hospital. 1 liter IV fluid given for dehydration. Liver ultrasound for ascites, elevated liver function tests, elevated INR. PT/OT for Assisted Facility. 12/18/2021 Hypotension improved. 12/19/2021 Alert to self only. Patient tolerating diet. Liver ultrasound unremarkable. 12/20/2021 Await discharge to TCU. 12/21/2021 Admit to TCU with debility, here for rehabilitation, strengthening, prior to disposition determination. [facility] Medical History Anemia Arthritis Atherosclerotic heart disease of [place] coronary artery without angina pectoris Atrial flutter Dysphagia Encounter for screening for COVID-19 Essential hypertension Heart disease Hypertension Preoperative cardiovascular examination Preoperative cardiovascular examination Presence of stent in coronary artery (~01/13/01) Pulmonary HTN Pure hypercholesterolemia Rheumatic fever Shortness of breath URI (upper respiratory infection) Home Medications aspirin 81 mg tablet,delayed release (Adult Aspirin Regimen) 81 mg PO DAILY Heart health 01/23/21 [History Last Taken Unknown] atorvastatin 40 mg tablet 40 mg PO DAILY Cholestrol 01/23/21 [History Last Taken Unknown] levothyroxine 125 mcg tablet (Euthyrox) 125 mcg PO DAILY Thyroid 01/23/21 [History Last Taken Unknown] ascorbic acid (vitamin C) 500 mg tablet 500 mg PO DAILY Supplement 07/07/21 [History Last Taken Unknown] cholecalciferol (vitamin D3) 25 mcg (1,000 unit) tablet 25 mcg PO DAILY Supplement 07/07/21 [History Last Taken Unknown] multivitamin 1 tab PO DAILY Supplement 07/07/21 [History Last Taken Unknown] omega 2-rau-iku-fish oil 60 mg-90 mg-500 mg capsule (Fish Oil) 1 cap PO DAILY Supplement 07/09/21 [History Last Taken Unknown] allopurinol 300 mg tablet 150 mg PO DAILY Gout 08/20/21 [History Last Taken Unknown] lactobacillus combination no.4 3 billion cell capsule (Probiotic) 3,000 mmu cells PO DAILY Supplement 12/09/21 [History Last Taken Unknown] polysaccharide iron complex 150 mg iron capsule (Ferrex) 150 mg PO DAILY Supplement 12/17/21 [History Last Taken Unknown] levofloxacin 750 mg/150 mL in 5 % dextrose intravenous piggyback 750 mg IV Q48H Antibiotic 12/21/21 [History Last Taken Unknown] Allergy/AdvReac Type Severity Reaction Status Date / Time adhesive tape Allergy Mild RASH Verified 12/17/21 22:59 iodine Allergy Mild UNKNOWN Verified 12/17/21 22:59 Family History Father Myocardial infarction, Onset Age: 46 Surgical History History of carpal tunnel release History of cholecystectomy Presence of coronary angioplasty implant and graft (~01/13/01) Social History household members: spouse Smoking Status: Never smoker alcohol intake: never substance use type: does not use caffeine: Yes Type: coffee Number of servings: 1 ROS Constitutional Constitutional: Denies chills, fever(s) or weight gain ENT HEENT: Denies headache(s), nasal congestion or nasal discharge Cardiovascular Cardiovascular: Denies chest pain or palpitations Respiratory/Chest Respiratory/Chest: Denies cough, excessive phlegm production or shortness of breath with exertion Gastrointestinal Gastrointestinal: Denies abdominal pain, nausea or vomiting Genitourinary Genitourinary: Denies dysuria Musculoskeletal Musculoskeletal: Denies joint pain or joint swelling Integumentary Integumentary: Denies rash or wounds Neurologic Neurologic: Denies focal weakness, numbness or tingling Psychiatric Psychiatric: Denies anxiety, auditory hallucinations, depression, homicidal ideation or suicidal ideation Vital Signs Vital Signs Vital Signs: 12/21/21 16:09 12/21/21 15:34 Temperature 98.5 F Temperature Source Temporal Pulse Rate 82 83 Pulse Rhythm Regular Pulse Strength Normal (2+) Respiratory Rate 18 30 H Respiratory Effort Normal Non-Labored Respiratory Depth Normal Respiratory Pattern Normal Blood Pressure 110/61 Blood Pressure Mean 77 Blood Pressure Source Monitor Blood Pressure Position Semi-Fowlers Blood Pressure Location Left Arm Pulse Ox 99 99 Oxygen Delivery Method Nasal Cannula Nasal Cannula Oxygen Flow Rate (L/min) 2 2 Weight Weight: 95.4 kg Body Mass Index (BMI) 28.5 Physical Exam Const alert General Appearance: cooperative HEENT normocephalic Eyes PERRL and EOMs intact bilaterally Neck supple, no JVD and no carotid bruits Resp normal respiratory effort, normal air movement and clear to auscultation bilaterally Cardio regular rate and regular rhythm GI normal to inspection, nondistended, normoactive bowel sounds, non-tender and non-distended Extremity normal capillary refill General Extremity: Negative for edema Skin no rashes or lesions noted General Skin Exam: no breakdown Psych affect normal Appearance: appropriate Assessment & Plan Assessment/Plan (1) Debility: (2) Dehydration: (3) Gout: (4) Iron deficiency anemia: (5) Coronary artery disease: (6) Hyperlipidemia: (7) Edema: (8) Hypothyroidism: (9) Allergic rhinitis: PLAN: Plan 86 year old male with below past medical history hospitalized for dehydration, hypotension, admitted to TCU with debility, here for rehabilitation, strengthening, prior to discharge home with . Debility - PT/OT. Pain - Tylenol 1000mg q6h prn pain (1-10). Bowel - senna/colace 1 tablet bid, Dulcolax 10mg pr daily prn. Adult immunization - Administer pneumonia vaccine, covid19 vaccine, flu vaccine. DVT prophylaxis - Hold. Gout - Allopurinol 150mg daily. Iron deficiency anemia - Ferrex 150mg daily, Vitamin C 500mg daily. Coronary artery disease - Aspirin 81mg daily. Hyperlipidemia - Atorvastatin 40mg daily. Nutrition - Ensure Plus 120ml 4x/day, MVI daily. GI prophylaxis - Lactobacillus 1 tablet daily. Hypothyroidism - Levothyroxine 125mcg daily. Skin irritation - Calmoseptine topical bid. Appetite loss - Mirtazapine 7.5mg qhs. Tinea Corporis - Nystatin powder topical bid. Vitamin D deficiency - D3 25mg daily. End of life - I had discussion with resident spouse, that resident maybe nearing end of life. Spouse states she would like resident wishes honored, but feels he is not ready for comfort care. Will continue therapy, and aggressive treatment, but spouse agreed if resident not progressing in 1 to 2 weeks, we may need to revisit end of life, comfort care, hospice care.
--- NOTE | 2021-12-21 20:53 | NURSING ---
Patient asking to go to bed. Asked him if he'd like to be washed up before bed, he refused. Asked if he could take his few PM meds, he declined politely multiple times. Said he'll take them tomorrow. He wanted to sleep and asked for all lights to be turned off. No PM meds given, lights turned off per his request.
[2021-12-22] VITALS (9 sets, daily range): BP systolic 60–98; BP diastolic 36–59; PULSE 48–86; RESP 20–46; TEMP 36.3; O2SAT 76–100
--- NOTE | 2021-12-22 01:22 | NURSING ---
Due to patient being incontinent of stool and urine. Mepilex removed from buttocks d/t saturated. Area coated with shey cream.
[2021-12-22] MEDS: Acetaminophen 500 MG Tablet 1000 MG PO (01:48)
--- NOTE | 2021-12-22 02:44 | NURSING ---
Pt noted to have labored breathing, high RR and hypotension. Jason. hands and jason. feet cool to touch. Pt voices that he wants to go and is ready to let go. Emotional support given.
--- NOTE | 2021-12-22 02:49 | NURSING ---
Addendum entered by Audrey Sims 12/22/21 03:36: 02:52- updated on patient's condition. Expressed to patient doesn't want any aggressive care done. Patient states,Just let me lay here, I am ready to go. advised this nurse she will be in. Original Note: Updated Dr. Shea on pt condition. Dr. Dimas requests to update .
--- NOTE | 2021-12-22 03:58 | NURSING ---
arrived to unit. accusing staff. Started to repeatedly state I did not say 'I'm not letting him ' This nurse explained that the statement the pt made was My does not want me to go. Staff depicted statement as it's appropriate for a significant other to not want their spouse to pass away. and reeducated on code staff by RADHA Estrada. When talking about code status in front of pt agrees w/ anything states. states she no longer wants to be asked about his code status.
[2021-12-22 05:40] LABS: Absolute Lymphocyte Count 1.03 X10^3/uL (0.83-4.51); Absolute Neutrophil Count 4.7 X10^3/uL (2.0-7.7); Basophil# 0.04 X10^3/uL; Basophil% 0.5 % (0-1); Eosinophil# 0.07 X10^3/uL; Eosinophils% 0.9 % (0-5); Hematocrit 25.2 % (40-54); Lymphocyte # 1.03 X10^3/ul (0.83-4.51); Mean Corp Hgb Conc 31.7 g/dL (32-36); Mean Corpuscular Hgb 31.7 pg (27.0-32.0); Mean Platelet Vol. 12.1 fl (6.2-12.0); Monocyte# 1.31 X10^3/uL; Monocyte% 17.8 % (0-10); NRBC Flagged by Analyzer 0 % (0-5); Neutrophil # 4.67 X10^3/uL (2.7-7.7); Neutrophil % 63.4 % (47-70); POSITIVE COUNT YES; POSITIVE MORPHOLOGY YES; Platelet Count 77 K/mm3 (150-450); RBC Distribution Width SD 65.6 fl (35.1-43.9); Red Blood Count 2.52 M/mm3 (4.6-6.2); White Blood Count 7.4 K/mm3 (4.4-11.0)
[2021-12-22] MEDS: Levothyroxine 125 MCG Tablet PO (05:57)
[2021-12-22] MEDS: Cholecalciferol (VIT D3) 25 MCG TABLET (1,000 UNITS) PO (05:57)
[2021-12-22] MEDS: Atorvastatin Calcium 40 MG Tablet PO (05:57)
[2021-12-22] MEDS: Iron Polysaccharide Complex 150 MG CAPSULE PO (05:57)
[2021-12-22] MEDS: Senna/Docusate Sodium 1 Tablet PO (05:59)
[2021-12-22 06:00] LABS: Differential Indicated SCAN CRITERIA MET
[2021-12-22] MEDS: Ensure Plus High Protein 120 ML LIQUID PO ×2 (06:01→12:06)
[2021-12-22] MEDS: Nystatin Powder 15gm Bottle 1 APPLIC TOPICAL ×2 (06:07→17:32)
[2021-12-22] MEDS: Menthol/Lanolin/Calamine/Znox 113 GM Tube 1 APPLIC TOPICAL (06:07)
[2021-12-22 06:11] LABS: Anion Gap 8 (5-15); BUN 72 mg/dL (7-18); BUN/Creat Ratio 39.8 RATIO (10-20); Calcium,Total 8.4 mg/dL (8.5-10.1); Chloride 120 mmol/L (98-107); Creatinine, Serum 1.81 mg/dL (0.70-1.30); EST Glomerular Filtration Rate 38 mL/min (>60); Est Glom Filt Rate - Afr Amer 46 mL/min (>60); Estimated Creatinine Clearance 31.56 ml/min; Glucose 133 mg/dL (74-106); Sodium Level 147 mmol/L (136-145)
[2021-12-22 06:28] LABS: Anisocytosis 2+; Macrocytosis 1+; Platelet Estimate MOD DEC (ADEQ)
[2021-12-22] MEDS: Aspirin E.C. 81 MG Tablet PO (08:28)
[2021-12-22] MEDS: Silver Sulfadiazine 1% Crm 50 gm Bottle 1 APPLIC TOPICAL (08:28)
[2021-12-22] MEDS: Allopurinol 300 MG Tablet 150 MG PO (08:28)
[2021-12-22] MEDS: Ascorbic Acid 500 MG Tablet PO (08:28)
--- NOTE | 2021-12-22 10:54 | CASEMGMT ---
Addendum entered by Samreen Joseph 12/23/21 08:51: Dr. Shea requested to 'hold' palliative referral. EVLIA updated [facility] via email. Original Note: Social Work Pt readmitted and known to this worker. present. Per chart review, does not want to discuss code status again. SW did not question or complete new MOLST to reflect change in code status. Educated to [facility] with NRD 12/23 and continued stay is not guaranteed. Per acute SW hand off, confirmed with considering [facility] private pay if pt cannot return home from TCU. also stated she would be interested in paying privately in TCU short term but wants to take it day by day. SW to assist with DC plans and provide support throughout stay. Will continue to follow. requested Palliative referral. ELVIA requested Dr to speak with pt/ prior to liaison visit. Order entered and referral sent via email to [facility]. CECE Cueva
[2021-12-22] MEDS: Multivitamins,Therapeutic Tablet 1 TABLET PO (12:04)
[2021-12-22] MEDS: Tuberculin,Purif.prot.deriv. 50 TU/ML Vial 0.1 ML ID (12:07)
--- NOTE | 2021-12-22 12:23 | NURSING ---
Dr Shea met with patient and this AM. discussed code status with them at this time. agreed to change code status to DNRCCA no intubation after discussion.
[2021-12-22] MEDS: 0.9% Saline Lock 10 ML Syringe IV (17:32)
[2021-12-22] MEDS: Mirtazapine 15 MG Tablet 7.5 MG PO (21:11)
[2021-12-23] MEDS: Atorvastatin Calcium 40 MG Tablet PO (05:06)
[2021-12-23] MEDS: Silver Sulfadiazine 1% Crm 50 gm Bottle 1 APPLIC TOPICAL (05:06)
[2021-12-23] MEDS: Cholecalciferol (VIT D3) 25 MCG TABLET (1,000 UNITS) PO (05:06)
[2021-12-23] MEDS: Iron Polysaccharide Complex 150 MG CAPSULE PO (05:06)
[2021-12-23] MEDS: Senna/Docusate Sodium 1 Tablet PO (05:06)
[2021-12-23] MEDS: Levothyroxine 125 MCG Tablet PO (05:06)
[2021-12-23] MEDS: Nystatin Powder 15gm Bottle 1 APPLIC TOPICAL ×2 (05:07→17:27)
[2021-12-23 07:15] VITALS: O2SAT 89
[2021-12-23] MEDS: Aspirin 81 MG TAB.CHEW PO (08:40)
[2021-12-23] MEDS: Ascorbic Acid 500 MG Tablet PO (08:41)
[2021-12-23] MEDS: Allopurinol 300 MG Tablet 150 MG PO (08:41)
--- NOTE | 2021-12-23 08:57 | PCA ---
assisted patient with eating patient put his hand over his mouth and shook his head no
[2021-12-23 11:03] VITALS: O2SAT 95
--- NOTE | 2021-12-23 12:16 | NURSING ---
at bedside attempting to feed patient lunch. pt remains drowsy, but responsive. this RN reiterated to to not feed patient if not fully alert. states he says he is hungry and doesn't understand why he isn't swallowing. demanding a diagnosis for his swallowing difficulty. this RN tried to explain that weakness can lead to weakened swallowing muscle/function. discussed with and patient that ST is working with patient to work on swallowing ability. explained that function can be difficult to regain especially in patients weakened state. this RN attempted to discuss goals with patient and . pt remains A/OX3, but drowsy. immediately became defensive stating she didn't want to have this discussion in front of the patient. explained to that patient is alert and is still able to be part of his medical decisions. circled back to wanting a diagnosis for his swallowing difficulty. states would like to speak with ST when offered MD to round this evening. mentioned him possibly needing a peg tube. this RN again asked patient directly if that was something he would want, but ended the discussion. will consult with ST to round again with patient and to discuss swallowing issues.
--- NOTE | 2021-12-23 12:34 | NURSING ---
Net Web Application Developer Note; Activity Asst: complete
--- NOTE | 2021-12-23 14:09 | PCM.PN.DRR ---
TCU RX Drug Regimen Review Subjective: TCU Admission. 86 YOM presented to ER with generalized illness. Hospitalized for dehydration and hypotension. Admitted to TCU with debility for strengthening and rehabilitation. Objective: Allergies adhesive tape Allergy (Mild, Verified 12/17/21 22:59) RASH iodine Allergy (Mild, Verified 12/17/21 22:59) UNKNOWN Current Medications Generic Name Dose Route Start Last Admin Trade Name Freq PRN Reason Stop Dose Admin Acetaminophen 1,000 mg 12/21/21 19:18 12/22/21 01:48 Acetaminophen 500 Mg Tablet PO 1,000 mg Q6H PRN PRN Administration Pain Score 1-10 Allopurinol 150 mg 12/22/21 08:00 12/23/21 08:41 Allopurinol 300 Mg Tablet PO 150 mg BREAKFAST DAVID Administration Ascorbic Acid 500 mg 12/22/21 08:00 12/23/21 08:41 Ascorbic Acid 500 Mg Tablet PO 500 mg BREAKFAST DAVID Administration Aspirin 81 mg 12/23/21 08:00 12/23/21 08:40 Aspirin 81 Mg Tab.Chew PO 81 mg BREAKFAST DAVID Administration Atorvastatin Calcium 40 mg 12/22/21 06:00 12/23/21 05:06 Atorvastatin Calcium 40 Mg Tablet PO 40 mg DAILY DAVID Administration Bisacodyl 10 mg 12/21/21 15:50 Bisacodyl 10 Mg Suppository RC X1 PRN Constipation Calamine/Phenol 1 applic 12/21/21 18:00 12/23/21 08:06 Menthol/Lanolin/Calamine/Znox 113 Gm Tube TOPICAL Not Given BID [facility] Protocol Cholecalciferol 25 mcg 12/22/21 06:00 12/23/21 05:06 Cholecalciferol (Vit D3) 25 Mcg Tablet (1,000 Units) PO 25 mcg DAILY DAVID Administration Sodium Chloride 250 mls @ 15 mls/hr 12/21/21 15:36 IV .[id number] PRN Saline Flush Sodium Chloride 250 mls @ 15 mls/hr 12/21/21 15:36 IV .[id number] PRN Additional IVPB Infusion Lactobacillus Acidophilus 1 tablet 12/22/21 08:00 12/23/21 08:41 Lactobacillus Acidophilus PO 1 tablet BREAKFAST DAVID Administration Levothyroxine Sodium 125 mcg 12/22/21 06:00 12/23/21 05:06 Levothyroxine 125 Mcg Tablet PO 125 mcg DAILY DAVID Administration Mirtazapine 7.5 mg 12/21/21 22:00 12/22/21 21:11 Mirtazapine 15 Mg Tablet PO 7.5 mg QHS DAVID Administration Multivitamins 1 tablet 12/22/21 12:00 12/23/21 11:54 Multivitamins,Therapeutic Tablet PO Not Given LUNCH DAVID Nutritional Formula (Lactose Free) 120 ml 12/21/21 17:00 12/23/21 11:55 Ensure Plus High Protein 120 Ml Liquid PO Not Given 4X/DAY DAVID Nystatin 1 applic 12/21/21 18:00 12/23/21 05:07 Nystatin Powder 15gm Bottle TOPICAL 1 applic BID DAVID Administration Protocol Polysaccharide Iron Complex 150 mg 12/22/21 06:00 12/23/21 05:06 Iron Polysaccharide Complex 150 Mg Capsule PO 150 mg DAILY DAVID Administration Senna/Docusate Sodium 1 tablet 12/21/21 19:30 12/23/21 05:06 Senna/Docusate Sodium 1 Tablet PO 1 tablet BID DAVID Administration Silver Sulfadiazine 1 applic 12/22/21 08:10 12/23/21 05:06 Silver Sulfadiazine 1% Crm 50 Gm Bottle TOPICAL 1 applic DAILY DAVID Administration Protocol Sodium Chloride 10 - 40 ml 12/21/21 15:36 12/22/21 17:32 0.9% Saline Lock 10 Ml Syringe IV 20 ml UD PRN Administration SALINE FLUSH Tuberculin PPD 0.1 ml 12/29/21 10:00 Tuberculin,Purif.Prot.Deriv. 50 Tu/Ml Vial ID 12/29/21 10:01 X1 ONE Problem List (Last Reviewed 12/21/21 @ 19:[address] Manas Shea MD) Allergic rhinitis (Acute) Hypothyroidism (Acute) Edema (Acute) Hyperlipidemia (Acute) Coronary artery disease (Acute) Iron deficiency anemia (Acute) Gout (Acute) Dehydration (Acute) Debility (Acute) Vital Signs Temp Pulse Resp BP Pulse Ox O2 Del Method O2 Flow Rate 97.4 F L 58 L 20 H 89/46 L 95 Room Air 4 12/22/21 15:07 12/22/21 20:54 12/22/21 20:54 12/22/21 18:24 12/23/21 11:03 12/23/21 11:03 12/23/21 07:15 Oxygen Flow Rate (L/min) 4 Oxygen Delivery Method Room Air Weight: 95.4 kg Body Mass Index (BMI) 28.5 Sodium 147 mmol/L (136-145) H 12/22/21 05:30 Potassium 4.0 mmol/L (3.5-5.1) 12/22/21 05:30 Chloride 120 mmol/L (98-107) H 12/22/21 05:30 Carbon Dioxide 19.0 mmol/L (21.0-32.0) L 12/22/21 05:30 Anion Gap 8 (5-15) 12/22/21 05:30 BUN 72 mg/dL (7-18) H 12/22/21 05:30 Creatinine 1.81 mg/dL (0.70-1.30) H 12/22/21 05:30 Est GFR (MDRD) Af Amer 46 mL/min (>60) L 12/22/21 05:30 Est GFR (MDRD) Non-Af 38 mL/min (>60) L 12/22/21 05:30 BUN/Creatinine Ratio 39.8 RATIO (10-20) H 12/22/21 05:30 Glucose 133 mg/dL (74-106) H 12/22/21 05:30 Assessment/Plan: 1. Pain: acetaminophen 1000mg PO Q6H PRN pain 1-10. Resident has had 1 dose for a nonspecific pain of 4. Please continue to monitor for increased pain and PRN usage. 2. Bowel: senna/docusate 1T PO BID and bisacodyl 10mg RC daily PRN constipation. Please continue to monitor for constipation/diarrhea and PRN usage. There has not been a documented bowel movement. 3. CAD: aspirin 81mg PO breakfast. Please continue to monitor S/S of bleeding and hemoglobin (last 8g/dL). 4. Iron deficiency anemia: Ferrex 150mg PO daily and ascorbic acid 500mg PO breakfast. Please continue to monitor hemoglobin (last 8g/dL), constipation and dark stools. 5. Hyperlipidemia: atorvastatin 40mg PO daily. Please continue to monitor lipid panel (last 07/16/21), LFTs (last 12/21/21) and for muscle pain. 6. Gout: allopurinol 150mg PO daily. Please continue to monitor for S/S of gout and renal function. 7. Hypothyroidism: levothyroxine 125mcg PO daily. Please continue to monitor TSH (last 12/10/21) and for S/S of hypo/hyperthyroidism. 8. Nutrition/vitamin D deficiency: multivitamin 1T PO daily and cholecalciferol 25mcg PO daily. Please consider ordering a vitamin D level now and then annually as clinically appropriate. Resident does not have one in the chart. Thanks. 9. GI prophylaxis: lactobacillus acidophilus 1T PO daily. Please continue to monitor for diarrhea. Assessment/Plan for indications treated with psychotropic medications: 1. Appetite loss: mirtazapine 7.5mg PO QHS. New medication, GDR not appropriate. Per director of strategic communications note, resident with decreased appetite. Please continue to monitor for improvement in appetite. Please continue to monitor for weight gain, drowsiness, and dry mouth. Medical chart and medication regimen reviewed. The following medication irregularities or issues were identified: *1. Cholecalciferol 25mcg PO daily. Please consider ordering a vitamin D level now and then annually as clinically appropriate. Resident does not have one in the chart. Thanks. Date of Note:: 12/23/21
[2021-12-23 15:41] VITALS: BP 145/67; PULSE 76; RESP 17; TEMP 36.4; O2SAT 95
--- NOTE | 2021-12-23 15:49 | CASEMGMT ---
Social Work Nursing keeping this worker updated on conversations being had with pt and on pt's medical status. SW attempted to talk with pt and , but unsuccessful multiple times. SW made Dr. Shea aware and to speak with pt and this evening. SW to continue to follow for assistance. Samreen Joseph, HEAD OF ADVERTISING PSYCH SALES SPECIALIST
--- NOTE | 2021-12-23 16:18 | CHAPLAIN ---
Type of Pastoral Visit _x__ Initial Visit ___ Follow-up Visit ___ On-call Visit ___ General Patient Visit ___ Spiritual Assessment ___ Family Conference ___ Bereavement ___ Rapid Response ___ Code Blue ___ Other (describe below) Pastoral Care Referral From ___ Patient _x__ Family ___ Nurse ___ Physician ___ Regional Driver ___ Train Electronic Technician ___ Other (describe below) Sacrament/Intervention _x__ Active listening ___ Anointing ___ Episcopal ___ Bereavement ___ Communion _x__ Jolanta exploration ___ ___ Life review ___ Prayer ___ Reconciliation ___ Sacrament of Sick _x__ Supportive presence ___ Wedding ___ Other (describe below) Pastoral Comments patient is resting in bed; pt did nod or shake head when asked questions but otherwise did not respond verbally or engage in questions; pt spouse is with him; spouse reports on pt life and jolanta, which she describes as very solid and very private to him; pt declined having a prayer spoken; time given to listen to spouse and about their life;
[2021-12-23] MEDS: Menthol/Lanolin/Calamine/Znox 113 GM Tube 1 APPLIC TOPICAL (17:27)
--- NOTE | 2021-12-23 18:21 | NURSING ---
spoke with patients in [facility] after her discussion with Dr Shea. she states after speaking with patient, he wants to go home; this RN asked if that meant they wanted to consult hospice to allow for end of life care at home. patients agreed that was what their wishes were. message left with Samreen regarding POC.
[2021-12-23 19:26] VITALS: PULSE 89; RESP 22; O2SAT 94
[2021-12-23] MEDS: Mirtazapine 15 MG Tablet 7.5 MG PO (21:43)
--- NOTE | 2021-12-23 22:48 | NURSING ---
spouse presents to unit, at patient bedside, spouse states she plans to stay with patient until morning and wishes to speak with elementary school social worker regarding discharge plans on hospice preferably 12/24/21 per spouse. Voicemail left for elementary school social worker, written communication left for Dr. Shea regarding spouse plans
--- NOTE | 2021-12-23 23:18 | NURSING ---
Spouse at bedside, reports patient presents as restless/discomfort and requesting medication to promote comfort. Patient appears restless at times with facial grimacing observed. Dr. Shea contacted via telephone regarding above and also notifed of spouse plan for patient to discharge home tomorrow with hospice services, verbal order received for Roxanol 5-10mg oral every hour as needed pain/restlessness. Order repeated back to Dr. Shea.
[2021-12-23] MEDS: morphine (oral solution) 10MG/0.5ML Syringe PO (23:39)
[2021-12-23 23:43] VITALS: PULSE 88; RESP 24; O2SAT 98
--- NOTE | 2021-12-23 23:49 | NURSING ---
PRN Morphine administered as ordered for pain/restlessness. Spouse remains at bedside, educated on new order from Dr. Shea. Spouse expresses thanks for care. Pt. repositioned for comfort. Continues to be lethargic, responds to verbal stimuli. Call light in reach.
[2021-12-24] MEDS: morphine (oral solution) 10MG/0.5ML Syringe PO ×3 (00:46→11:42)
--- NOTE | 2021-12-24 00:49 | NURSING ---
Addendum entered by Winifred Bowen 12/24/21 04:39: @0130: PRN Morphine effective, no s/sx restlessness/pain at this time. No facial grimacing. Resps even and unlabored. Spouse at bedside Original Note: pt. reports continued restlessness and signs of discomfort, requests PRN Morphine for patient at this time. Patient assessed, presents as restless AEB facial grimacing and restlessness in bed. PRN Morphine administered as ordered. Call light in reach. Spouse remains at bedside.
[2021-12-24 00:58] VITALS: PULSE 89; RESP 26; O2SAT 97
[2021-12-24] MEDS: Nystatin Powder 15gm Bottle 1 APPLIC TOPICAL (05:50)
[2021-12-24] MEDS: Silver Sulfadiazine 1% Crm 50 gm Bottle 1 APPLIC TOPICAL (05:50)
[2021-12-24] MEDS: Menthol/Lanolin/Calamine/Znox 113 GM Tube 1 APPLIC TOPICAL (05:51)
--- NOTE | 2021-12-24 05:52 | NURSING ---
Presents in bed. moaning loudly, facial grimacing, restless at this time. PRN Morphine administered as ordered per pt. request. Increased lethargy. Responds to verbal and tactile stimuli. Unable to administer 0600 medications safely due to lethargy. Written communication left for Dr. Shea review this AM. Spouse visiting.
[2021-12-24 05:55] VITALS: PULSE 89; RESP 24; O2SAT 98
[2021-12-24 06:35] VITALS: O2SAT 94
--- NOTE | 2021-12-24 09:16 | CASEMGMT ---
Addendum entered by Samreen Joseph 12/24/21 11:42: [facility] met with family and papers are signed. Transport scheduled along with DME delivery for 1400. IDT updated. Staff assessment completed for MDS. Plan: DC home with [facility] and 12/24 Original Note: Social Work Received notification from nursing and Dr. Shea that family is ready for hospice and electing to take pt home. and dtr present in room. SW spoke with family about plans and answered questions. Family is agreeable to hospice today for pt. Educated to hospice at home, possibly [facility] if [facility] is chosen, or if family is concerned about pt passing in transport, for pt to remain in TCU for today. Family is electing [facility] and having hospice in the home. Educated to hospice not providing 13/09 care, but will have nursing/aides in the home as condition warrants and on-call /. Family expressed understanding and still electing home. Family agreeable to this worker making referral and pt discharging today. ELVIA phoned referral to Swathi at [facility]. Swathi started request for Mobile Care Unit to transport pt home. Faxed referral information. Swathi to coordinate and speak with . ELVIA updated IDT. Will continue to follow. Samreen Joseph, CECE RICOW
--- NOTE | 2021-12-24 09:23 | DS.PCM_ITS ---
Providers Date of Admission: 12/21/21 Primary Care Physician: Dr. Agus Almaguer MD Consultations 12/22/21 10:37 Consult: Hospice / Palliative Care Routine Consulting Provider: [facility] Reason for Consult: PALLIATIVE - Dementia, CAD, frequent hospitalizations, decline in ADLs EMERGENT Consult: No MD Notified: Yes Date Notified: 12/22/21 Time Notified: 10:37 Method of Notification: Text Reason For Visit: ANASARCA/ DEBILITY Diagnosis Discharge Diagnosis (1) Debility: Status: Acute Code(s): R53.81 - Other malaise (2) Dehydration: Status: Acute Code(s): E86.0 - Dehydration (3) Gout: Status: Acute Code(s): M10.9 - Gout, unspecified (4) Iron deficiency anemia: Status: Acute Code(s): D50.9 - Iron deficiency anemia, unspecified (5) Coronary artery disease: Status: Acute Code(s): I25.10 - Atherosclerotic heart disease of [place] coronary artery without angina pectoris (6) Hyperlipidemia: Status: Acute Code(s): E78.5 - Hyperlipidemia, unspecified (7) Edema: Status: Acute Code(s): R60.9 - Edema, unspecified (8) Hypothyroidism: Status: Acute Code(s): E03.9 - Hypothyroidism, unspecified (9) Allergic rhinitis: Status: Acute Code(s): J30.9 - Allergic rhinitis, unspecified Plan 86 year old male with below past medical history hospitalized for dehydration, hypotension, admitted to TCU with debility, here for rehabilitation, strengthening, prior to discharge home with . * Debility - PT/OT. * Pain - Tylenol 1000mg q6h prn pain (1-10). * Bowel - senna/colace 1 tablet bid, Dulcolax 10mg pr daily prn. * Adult immunization - Administer pneumonia vaccine, covid19 vaccine, flu vaccin e. * DVT prophylaxis - Hold. * Gout - Allopurinol 150mg daily. * Iron deficiency anemia - Ferrex 150mg daily, Vitamin C 500mg daily. * Coronary artery disease - Aspirin 81mg daily. * Hyperlipidemia - Atorvastatin 40mg daily. * Nutrition - Ensure Plus 120ml 4x/day, MVI daily. * GI prophylaxis - Lactobacillus 1 tablet daily. * Hypothyroidism - Levothyroxine 125mcg daily. * Skin irritation - Calmoseptine topical bid. * Appetite loss - Mirtazapine 7.5mg qhs. * Tinea Corporis - Nystatin powder topical bid. * Vitamin D deficiency - D3 25mg daily. * End of life - I had discussion with resident spouse, that resident maybe nearing end of life. Spouse states she would like resident wishes honored, but feels he is not ready for comfort care. Will continue therapy, and aggressive treatment, but spouse agreed if resident not progressing in 1 to 2 weeks, we may need to revisit end of life, comfort care, hospice care. Hospital Course Operations None Procedures None Summary of Care Provided Minutes Spent on Discharge: 35 Hospital Course: 86 year old male with below past medical history hospitalized for dehydration, hypotension, admitted to TCU with debility, here for rehabilitation, strengthening, prior to discharge home with . Resident dying. Discharge home with 12/24/2021, Hospice. Physical Exam Const alert General Appearance: cooperative HEENT normocephalic Eyes PERRL and EOMs intact bilaterally Neck supple, no JVD and no carotid bruits Resp normal respiratory effort, normal air movement and clear to auscultation bilaterally Cardio regular rate and regular rhythm GI normal to inspection, nondistended, normoactive bowel sounds, non-tender and non-distended Extremity normal capillary refill General Extremity: Negative for edema Skin no rashes or lesions noted General Skin Exam: no breakdown Psych affect normal Appearance: appropriate Weight / BMI Weight Weight: 95.4 kg Body Mass Index (BMI) 28.5 ABG / Lab / Microbiology Data Result Diagrams: 12/22/21 05:30 12/22/21 05:30 D/C Instructions Discharge Diet: No restrictions Additional Instructions: Discharge home with 12/24/2021, Hospice. Meaningful Use Info Meaningful Use Diagnoses (Choose all that apply): None applicable Discharge Plan Admission Admit Date/Time: 12/21/21 15:30 Primary Reason for Your Visit: Debility. Attending Provider: Manas Shea Chi Primary Care Provider: Agus Almaguer Consulting Providers: Mary Jane Carrion ; Gerald Pena ; Alix Guzman ; Cesia Josue ; Agaat Isaacs STORAGE FACILITY RENTAL CLERK Instructions Additional Instructions / Restrictions: Discharge home with 12/24/2021, Hospice. Discharge Orders/Prescriptions Prescriptions: Discontinued atorvastatin 40 mg tablet 40 mg PO DAILY aspirin [Adult Aspirin Regimen] 81 mg tablet,delayed release (DR/EC) 81 mg PO DAILY levothyroxine [Euthyrox] 125 mcg tablet 125 mcg PO DAILY omega 4-baw-gpc-fish oil [Fish Oil] 60-90-500 mg capsule 1 cap PO DAILY ascorbic acid (vitamin C) 500 mg tablet 500 mg PO DAILY cholecalciferol (vitamin D3) 25 mcg (1,000 unit) tablet 25 mcg PO DAILY multivitamin Tablet 1 tab PO DAILY allopurinol 300 mg tablet 150 mg PO DAILY Probiotic 3 billion cell Capsule 3,000 mmu cells PO DAILY Rx Instructions: administer with a meal polysaccharide iron complex [Ferrex 150] 150 mg iron Capsule 150 mg PO DAILY levofloxacin in D5W 750 mg/150 mL piggyback 750 mg IV Q48H Referrals / Follow Up: Agus Almaguer MD [Primary Care Provider] - Disposition Disposition (needs filled in before D/C Order can be placed): Hospice in Home
--- NOTE | 2021-12-24 12:30 | NURSING ---
This Nurse went into pt's room at 12:10 to check on pt. Pt's at bedside stated he took a weird breath and I thought it was his sleep apnea. Pt did not appear to be breathing. This Nurse checked for carotid pulse and none was found listen for a apical pulse and none noted. Alesha RN came to room to assist listened for apical pulse and checked for carotid pulse per Alesha none was found. Pt noted to be a DNRCC-A No intubation. supervisor cigar processing was notified along with TCU Division Manager. Report of was completed. [facility] called and they requested to hold body and not release to home. [facility] office called and awaiting for call back. wax ball knock out worker notified who updated Hospice and Dr. Shea of time of . Pts and daughters in room at this time. Family was offered comfort and asked if there was anything I could do for them. Per family did not need anything at this time. Asked Family to leave room in order to get patient washed up.
--- NOTE | 2021-12-24 12:44 | CASEMGMT ---
Addendum entered by Samreen Joseph 12/24/21 15:17: Followed up with family. Provided emotional support. Family voiced no needs and are very appreciative of the care given to pt. Awaiting hand picker from home. Original Note: Social Work Notified by nursing, pt . SW presented to pt's room where and both dtrs were present. Comforted family during this time. stated to use [facility] in [place] and his wish is to be cremated. Exited room to allow family to grieve together. Offered ongoing support. Notified RN of home. FILIBERTO, Dr. Shea and Swathi at [facility] of expiration. Samreen Joseph, CECE WELLNESS ASSISTANT
--- NOTE | 2021-12-24 13:09 | NURSING ---
Health Spa Manager Note; MDS Complete
--- NOTE | 2021-12-24 15:47 | CHAPLAIN ---
Type of Pastoral Visit ___ Initial Visit ___ Follow-up Visit ___ On-call Visit ___ General Patient Visit ___ Spiritual Assessment ___ Family Conference _x__ Bereavement ___ Rapid Response ___ Code Blue ___ Other (describe below) Pastoral Care Referral From ___ Patient ___ Family _x__ Nurse ___ Physician ___ Corporate Communications Associate ___ Landmen ___ Other (describe below) Sacrament/Intervention _x__ Active listening ___ Anointing ___ Confucianist ___ Bereavement ___ Communion ___ Jolanta exploration ___ ___ Life review ___ Prayer ___ Reconciliation ___ Sacrament of Sick _x__ Supportive presence ___ Wedding ___ Other (describe below) Pastoral Comments notified by RN that patient had ; went to meet with spouse and three daughters present in the room; offered sympathy and support; a family friend arrived at this time and interacted at length with the family members; gave presence; again offered support and asked what could be done to assist family; daughters did not seek further help at this time; SW also arrived to give support during this time
--- NOTE | 2021-12-30 07:23 | MDS.RN ---
Information for the mds was obtained from review of the clinical record, interview of resident, staff, and direct observation of resident's care.
== END 2021-12-24 12:10 | DRG 316 ==
PROVIDERS: Admitting Provider Family Medicine Geriatric Medicine; PCP Family Medicine; Visit Provider Family Medicine Geriatric Medicine
DX: I95.9 Hypotension, unspecified (principal); B35.4 Tinea corporis; D50.9 Iron deficiency anemia, unspecified; I25.10 Atherosclerotic heart disease of native coronary artery without angina pectoris; E03.9 Hypothyroidism, unspecified; E55.9 Vitamin D deficiency, unspecified; E78.00 Pure hypercholesterolemia, unspecified; M10.9 Gout, unspecified; I10 Essential (primary) hypertension; E86.0 Dehydration; M19.90 Unspecified osteoarthritis, unspecified site; Z79.82 Long term (current) use of aspirin; Z66 Do not resuscitate; Z79.899 Other long term (current) drug therapy; Z79.890 Hormone replacement therapy; Z95.1 Presence of aortocoronary bypass graft
CPT/HCPCS: 36415; 80048; 85025; 92526; 92610; 97110; 97162; 97166; 97530; 97535; 97802; J7040; A4216